=== PATIENT | male | born 1945 | race American Indian/Alaskan Native ===

== ENCOUNTER 2018-12-05 12:38 | Inpatient (IN) | payer MEDICARE ==
--- NOTE | 2018-12-05 12:53 | Emergency Department Report ---
Blank Doc - Documentation Documentation: This is a 73-year-old male that presents with hematuria. Denies any penile di scharge. Denies any back pain, testicular pain or swelling. This initial assessment/diagnostic orders/clinical plan/treatment(s) is/are subject to change based on patient's health status, clinical progression and re- assessment by fellow clinical providers in the ED. Further treatment and workup at subsequent clinical providers discretion. Patient/guardians urged not to elope from the ED as their condition may be serious if not clinically assessed and managed. Initial orders include: 1- Patient sent to [facility] for further evaluation and treatment 2- UA 3- Labs
[2018-12-05] MEDS ORDERED: NACL 0.9% 1000 ML 1,000 ML IV ONE (13:33)
[2018-12-05 13:38] LABS: Basophils # (Auto) 0.1 K/mm3 (0.0-0.1); Eosinophils # (Auto) 0.1 K/mm3 (0.0-0.4); Eosinophils % (Auto) 1.4 % (0.0-4.3); Hematocrit 39.7 % (35.5-45.6); Hemoglobin 12.6 gm/dl (11.8-15.2); Lymphocytes % (Auto) 14.6 % (13.4-35.0); Mean Corpuscular HGB Conc 32 % (32-34); Mean Corpuscular Volume 88 fl (84-94); Monocytes # (Auto) 0.7 K/mm3 (0.0-0.8); Monocytes % (Auto) 10.1 % (0.0-7.3); Platelet Count 247 K/mm3 (140-440); Red Blood Count 4.53 M/mm3 (3.65-5.03); Red Cell Distribution Width 16.4 % (13.2-15.2)
[2018-12-05 13:55] LABS: INR 1.09 (0.87-1.13)
[2018-12-05] MEDS ORDERED: VANCOMYCIN PHARMACY TO DOSE IV SCH (14:00)
[2018-12-05 14:13] LABS: BUN/Creatinine Ratio 12; Blood Urea Nitrogen 22 mg/dL (9-20)
[2018-12-05 14:14] LABS: Alanine Aminotransferase 13 units/L (7-56); Albumin 3.3 g/dL (3.9-5); Hemolysis Index 47
[2018-12-05 14:16] LABS: Bilirubin,Direct < 0.2 mg/dL (0-0.2)
[2018-12-05] MEDS ORDERED: MERREM 1,000 MG in NACL 0.9% 100 ML IV ONE (14:35)
[2018-12-05] MEDS ORDERED: ATIVAN ONE (14:55)
[2018-12-05] MEDS ORDERED: VANCOMYCIN 1,500 MG in NACL 0.9% 500 ML 500 ML IV ONE (15:00)
--- NOTE | 2018-12-05 15:06 | XRay Report ---
Single view chest: Compared to 10/22/16. History: Hypertension. Findings: Cardiomegaly. Trachea is midline. No consolidation, pneumothorax or pleural effusion. Impression: Cardiomegaly. No acute lung changes.
--- NOTE | 2018-12-05 15:12 | Emergency Department Report ---
ED General Adult HPI - General Chief complaint: Urogenital-Male Stated complaint: BLOOD IN URINE Time Seen by Provider: 12/05/18 12:51 Source: family Mode of arrival: Wheelchair Limitations: No Limitations - History of Present Illness Initial comments: 73-year-old male who presents to the emergency department with a heart rate of approximately 180 in SVT. His is not the greatest historian. However she states that he has had hematuria and lower abdominal suprapubic discomfort since yesterday. The patient himself is not complaining of anything actively but he does have a history of dementia. does recall that the patient had SVT and a Chambers in the past. He has previous amputation. Apparently he has presented here in 2017 under very similar circumstances: Discharge diagnosis and management per problem: Sepsis - likely due lower extremity cellulitis due to infected blisters; - cultures obtained (blood and urine cultures neg to date, wound culture growing GNR); - was on broad-spectrum antibiotics then narrowed down to levaquin per culture results SVT - received adenosine and converted back into sinus rhythm; - TSH within normal limits; possibly related to sepsis/electrolyte abnormalities (hyperkalemia, hypernatremia, hyperchloremia); - electrolytes replaced as needed - s/p another episode of SVT on 10/24/16 on the floor which resolved with iv Lopressor, then placed on metoprolol po - Cardiology was following, 2-D echo showed normal ejection fraction Hypertension, benign essential - initially on admission was hypotensive secondary to sepsis and volume depletion; responded to IV fluids and resolved - Placed on metoprolol and amlodipine Acute on chronic renal failure - secondary to vasomotor nephropathy/rhabdomyolysis with metabolic acidosis, uremia, hyperkalemia; - Placed on IV fluids, including bicarbonate; improved, Cr almost at baseline, level was 1.5 before discharge Hyperkalemia - secondary to CKD/potassium supplementation/dehydration - medically treated, now within normal limits; Hypernatremia - secondary to dehydration; resolved with IV fluid Rhabdomyolysis - CPK trended down with IV fluids Acute toxic metabolic encephalopathy - treated underlying conditions, stable now 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 - on admission d-dimer elevated and patient started on heparin drip by ER physician; - venous Doppler lower extremities obtained and negative for DVT bilaterally; - also VQ scan performed and there is no evidence of PE; - heparin drip discontinued and patient was started on Coumadin severe protein calorie Malnutrition - follow dietary recommendation -: Gradual, hour(s) Location: abdomen Radiation: non-radiation Severity scale (0 -10): 6 Quality: aching Consistency: intermittent Improves with: none Worsens with: none Associated Symptoms: denies other symptoms - Related Data Home Medications Medication Instructions Recorded Confirmed Last Taken Aspirin [Aspirin BABY CHEW TAB] 81 mg PO QDAY 05/01/15 05/13/15 05/12/15 Previous Rx's Medication Instructions Recorded Last Taken Type HYDROcodone/APAP 5-325 [[place] 1 each PO Q6HR PRN #10 tablet 05/09/15 05/12/15 Rx 5-325 mg TAB] Metoprolol [Lopressor TAB] 50 mg PO BID #60 tablet 10/28/16 Unknown Rx Warfarin [Coumadin] 7.5 mg PO DAILY@1700 tablet 10/28/16 Unknown Rx amLODIPine [Norvasc] 5 mg PO QDAY #30 tablet 10/28/16 Unknown Rx levoFLOXacin [Levaquin TAB] 500 mg PO Q24HR #7 tablet 10/28/16 Unknown Rx Allergies Allergy/AdvReac Type Severity Reaction Status Date / Time No Known Allergies Allergy Unverified 05/13/15 15:03 ED Review of Systems ROS: Stated complaint: BLOOD IN URINE Other details as noted in HPI Comment: Unobtainable due to pts medical conditions (dementia. The patient is not complaining of pain on the initial encounter.) ED Past Medical Hx - Past Medical History Previous Medical History?: Yes Hx Hypertension: Yes Hx CVA: Yes ("MINI STROKE") Hx Congestive Heart Failure: Yes Hx Deep Vein Thrombosis: Yes (Right leg 05/2015) Hx Psychiatric Treatment: Yes (DEPRESSION) Additional medical history: "KIDNEY PROBLEMS" - Surgical History Past Surgical History?: Yes Additional Surgical History: LEFT HIP REPLACEMENT, Right BKA - Social History Smoking Status: Unknown if ever smoked Substance Use Type: None - Medications Home Medications: Home Medications Medication Instructions Recorded Confirmed Last Taken Type Aspirin [Aspirin BABY CHEW TAB] 81 mg PO QDAY 05/01/15 05/13/15 05/12/15 History HYDROcodone/APAP 5-325 [[place] 1 each PO Q6HR PRN #10 tablet 05/09/15 05/13/15 05/12/15 Rx 5-325 mg TAB] Metoprolol [Lopressor TAB] 50 mg PO BID #60 tablet 10/28/16 Unknown Rx Warfarin [Coumadin] 7.5 mg PO DAILY@1700 tablet 10/28/16 Unknown Rx amLODIPine [Norvasc] 5 mg PO QDAY #30 tablet 10/28/16 Unknown Rx levoFLOXacin [Levaquin TAB] 500 mg PO Q24HR #7 tablet 10/28/16 Unknown Rx ED Physical Exam - General Limitations: No Limitations General appearance: alert, in no apparent distress - Head Head exam: Present: atraumatic, normocephalic - Eye Eye exam: Present: normal appearance. Absent: scleral icterus - ENT ENT exam: Present: mucous membranes moist - Neck Neck exam: Present: normal inspection. Absent: tenderness, meningismus - Respiratory Respiratory exam: Present: normal lung sounds bilaterally. Absent: respiratory distress - Cardiovascular Cardiovascular Exam: Present: regular rate, tachycardia (SVT at about 180). Absent: systolic murmur, diastolic murmur, rubs, gallop - GI/Abdominal GI/Abdominal exam: Present: soft, normal bowel sounds. Absent: distended, tenderness, guarding, rebound, rigid - Rectal Rectal exam: Present: deferred - Extremities Exam Extremities exam: Present: other (right AKA) - Back Exam Back exam: Present: normal inspection - Neurological Exam Neurological exam: Present: alert, oriented X3 - Psychiatric Psychiatric exam: Present: normal affect, normal mood - Skin Skin exam: Present: warm, dry, intact, normal color. Absent: rash ED Course Vital Signs 12/05/18 12/05/18 12/05/18 12:52 13:14 13:31 Temperature 97.9 F Pulse Rate 176 H 176 H 98 H Respiratory 24 16 16 Rate Blood Pressure 147/81 Blood Pressure 150/84 150/90 [Left] O2 Sat by Pulse 97 100 100 Oximetry 12/05/18 12/05/18 14:22 14:31 Temperature 100.5 F H Pulse Rate 98 H Respiratory 16 Rate Blood Pressure Blood Pressure 139/96 [Left] O2 Sat by Pulse 100 Oximetry - Reevaluation(s) Reevaluation #1: The patient was given 6 mg of adenosine. This was effective in terminating his SVT. He felt topically warm and he was presumed to be septic. This is validated by a quite elevated lactic acid level. He was treated with empiric antibiotics before laboratory results. Patient had IV bolus initiated. However he was unable to urinate. Nursing was unable to place a Chambers catheter. Therefore Dr. Bettencourt urologist was consulted. A CT of the abdomen and pelvis was ordered. The findings were discussed with Dr. Gusman who will be admitting the patient to hospitalist service. 12/05/18 15:25 ED Medical Decision Making - Lab Data Result diagrams: 12/05/18 13:25 12/05/18 13:25 Laboratory Results - last 24 hr 12/05/18 12/05/18 12/05/18 13:25 13:25 13:25 WBC 7.2 RBC 4.53 Hgb 12.6 Hct 39.7 MCV 88 MCH 28 MCHC 32 RDW 16.4 H Plt Count 247 Lymph % (Auto) 14.6 Thayer % (Auto) 10.1 H Eos % (Auto) 1.4 Baso % (Auto) 1.0 Lymph # 1.0 L Thayer # 0.7 Eos # 0.1 Baso # 0.1 Seg Neutrophils % 72.9 H Seg Neutrophils # 5.2 PT INR APTT Sodium 145 Potassium 4.4 Chloride 108.5 H Carbon Dioxide 20 L Anion Gap 21 BUN 22 H Creatinine 1.9 H Estimated GFR 42 BUN/Creatinine Ratio 12 Glucose 95 Lactic Acid Calcium 9.0 Magnesium 1.90 Total Bilirubin 0.50 Direct Bilirubin < 0.2 AST 19 ALT 13 Alkaline Phosphatase 86 Total Creatine Kinase CK-MB (CK-2) CK-MB (CK-2) Rel Index Troponin T NT-Pro-B Natriuret Pep 556.5 Total Protein 7.0 Albumin 3.3 L Albumin/Globulin Ratio 0.9 Lipase 29 12/05/18 12/05/18 12/05/18 13:35 13:43 13:43 WBC RBC Hgb Hct MCV MCH MCHC RDW Plt Count Lymph % (Auto) Thayer % (Auto) Eos % (Auto) Baso % (Auto) Lymph # Thayer # Eos # Baso # Seg Neutrophils % Seg Neutrophils # PT 14.8 INR 1.09 APTT 27.0 Sodium Potassium Chloride Carbon Dioxide Anion Gap BUN Creatinine Estimated GFR BUN/Creatinine Ratio Glucose Lactic Acid 4.10 H* Calcium Magnesium Total Bilirubin Direct Bilirubin AST ALT Alkaline Phosphatase Total Creatine Kinase 137 CK-MB (CK-2) 2.0 CK-MB (CK-2) Rel Index 1.4 Troponin T 0.014 NT-Pro-B Natriuret Pep Total Protein Albumin Albumin/Globulin Ratio Lipase - EKG Data -: EKG Interpreted by Me Rate: tachycardia - EKG Data Interpretation: other (SVT) - Radiology Data Radiology results: report reviewed Critical Care Time: Yes Critical care time in (mins) excluding proc time.: 80 Critical care attestation.: If time is entered above; I have spent that time in minutes in the direct care of this critically ill patient, excluding procedure time. ED Disposition Clinical Impression: SVT (supraventricular tachycardia), Bladder outlet obstruction Sepsis Qualifiers: Sepsis type: sepsis due to unspecified organism Qualified Code(s): A41.9 - Sepsis, unspecified organism Disposition: DC-09 OP ADMIT IP TO THIS HOSP Is pt being admited?: Yes Does the pt Need Aspirin: Yes Condition: Stable Referrals: THIERNO PALACIOS MD [Primary Care Provider] - 3-5 Days Time of Disposition: 15:43
[2018-12-05] MEDS ORDERED: ATIVAN IV ONE (15:15)
--- NOTE | 2018-12-05 15:37 | History and Physical Report ---
History of Present Illness Chief complaint: He has blood in his urine History of present illness: 73 YO Male with HTN, CVA, CHF, DVT on Therapeutic Anticoagulation, Dementia, Depression presents to ED for evaluation. Pt is confused and provides limited history. Pt history provided by his . per , the patient has experienced abdominal discomfort, and blood in his urine over the past 2 days. Pt transported to [facility] by his family. Pt seen and evaluated in ED and found to have ARF suspected secondary to Bladder Outlet obstruction, SIRS, Acidosis, SIRS as well as SVT with heart rate in the 180's. Pt treated with medical cardioversion with Adenosine with normalization of heart rate. Pt admitted to Telemetry. Cardiology consulted in ED. Urology consulted in ED with placement of caldwell catheter in ED. Past History Past Medical History: DVT, heart failure, hypertension, stroke Past Surgical History: total hip replacement, Other (R BKA) Social history: , lives with family. denies: smoking, alcohol abuse, p rescription drug abuse Family history: CAD, hypertension Medications and Allergies Allergies Allergy/AdvReac Type Severity Reaction Status Date / Time No Known Allergies Allergy Unverified 05/13/15 15:03 Home Medications Medication Instructions Recorded Confirmed Last Taken Type Aspirin [Aspirin BABY CHEW TAB] 81 mg PO QDAY 05/01/15 05/13/15 05/12/15 History HYDROcodone/APAP 5-325 [[place] 1 each PO Q6HR PRN #10 tablet 05/09/15 05/13/15 05/12/15 Rx 5-325 mg TAB] Metoprolol [Lopressor TAB] 50 mg PO BID #60 tablet 10/28/16 Unknown Rx Warfarin [Coumadin] 7.5 mg PO DAILY@1700 tablet 10/28/16 Unknown Rx amLODIPine [Norvasc] 5 mg PO QDAY #30 tablet 10/28/16 Unknown Rx levoFLOXacin [Levaquin TAB] 500 mg PO Q24HR #7 tablet 10/28/16 Unknown Rx Active Meds: Active Medications Vancomycin HCl 1,500 mg/ (Sodium Chloride) 530 mls @ 265 mls/hr IV ONCE ONE Stop: 12/05/18 16:59 Review of Systems ROS unobtainable: due to mental status Exam - Constitutional Vitals: Temp Pulse Resp BP Pulse Ox 100.5 F H 98 H 16 139/96 100 12/05/18 14:22 12/05/18 14:31 12/05/18 14:31 12/05/18 14:31 12/05/18 14:31 General appearance: Present: mild distress - EENT Eyes: Present: PERRL ENT: hearing intact, clear oral mucosa - Neck Neck: Present: supple, normal ROM - Respiratory Respiratory effort: normal Respiratory: bilateral: CTA - Cardiovascular Rhythm: other (tachycardia) Heart Sounds: Present: S1 & S2. Absent: rub, click - Extremities Extremities: pulses symmetrical, No edema Peripheral Pulses: within normal limits - Abdominal General gastrointestinal: Present: soft, non-tender, non-distended, normal bowel sounds Male genitourinary: Present: normal - Integumentary Integumentary: Present: clear, warm, dry - Musculoskeletal Musculoskeletal: generalized weakness - Psychiatric Psychiatric: no appropriate mood/affect, no intact judgment & insight, no memory intact - Neurologic Neurologic: CNII-XII intact, moves all extremities, no gait normal Results - Labs CBC & Chem 7: 12/05/18 13:25 12/05/18 13:25 Labs: Abnormal lab results 12/05/18 12/05/18 12/05/18 Range/Units 13:25 13:25 13:35 RDW 16.4 H (13.2-15.2) % [place] % (Auto) 10.1 H (0.0-7.3) % Lymph # 1.0 L (1.2-5.4) K/mm3 Seg Neutrophils % 72.9 H (40.0-70.0) % Chloride 108.5 H (98-107) mmol/L Carbon Dioxide 20 L (22-30) mmol/L BUN 22 H (9-20) mg/dL Creatinine 1.9 H (0.8-1.5) mg/dL Lactic Acid 4.10 H* (0.7-2.0) mmol/L Albumin 3.3 L (3.9-5) g/dL Assessment and Plan - Patient Problems (1) SIRS (systemic inflammatory response syndrome) Current Visit: Yes Status: Acute Plan to address problem: Empiric antibiotic therapy, IVF resuscitation therapy, CBC, CMP, lactic acid level, chest x ray. (2) Acidosis Current Visit: Yes Status: Acute Plan to address problem: IVF resuscitation therapy (3) Bladder outlet obstruction Current Visit: Yes Status: Acute Plan to address problem: Urology consulted in ED, caldwell catheter placed, monitor uop q shift, (4) Supraventricular tachycardia Current Visit: Yes Status: Acute Plan to address problem: Cardioversion with Adenosine, Cardiology consulted in ED, supportive care, continue beta edwin therapy (5) Acute on chronic renal failure Current Visit: No Status: Acute Plan to address problem: Monitor UOP q shift, urine electrolytes, (6) DVT prophylaxis Current Visit: Yes Status: Acute Plan to address problem: SCD to BLE while in bed.
[2018-12-05] MEDS ORDERED: BABY ASPIRIN PO ONE (15:44)
[2018-12-05] MEDS ORDERED: SODIUM CHLORIDE FLUSH SYRINGE 10 ML IV PRN (15:47)
[2018-12-05] MEDS ORDERED: ZOFRAN IV PRN (15:47)
[2018-12-05] MEDS ORDERED: TYLENOL PO PRN (15:47)
[2018-12-05] MEDS ORDERED: PROVENTIL IH PRN (15:47)
--- NOTE | 2018-12-05 16:14 | Consultation ---
History of Present Illness - Reason for Consult Consult date: 12/05/18 - History of Present Illness CC gross hematuria 73-year-old male who presents to the emergency department with a heart rate of approximately 180 in SVT. His is not the greatest historian. However she states that he has had hematuria and lower abdominal suprapubic discomfort since yesterday. The patient himself is not complaining of anything actively but he does have a history of dementia. does recall that the patient had SVT and a Caldwell in the past. He has previous amputation. Apparently he has presented here in 2017 under very similar circumstances abd mildly distended 16F caldwell place - irrigated clot to pink tinged A/P gross hematuria caldwell - irrigated q 4 hrs & prn with 30-60 cc saline CTAP Medications and Allergies Allergies Allergy/AdvReac Type Severity Reaction Status Date / Time No Known Allergies Allergy Unverified 05/13/15 15:03 Home Medications Medication Instructions Recorded Confirmed Last Taken Type Aspirin [Aspirin BABY CHEW TAB] 81 mg PO QDAY 05/01/15 05/13/15 05/12/15 History HYDROcodone/APAP 5-325 [[place] 1 each PO Q6HR PRN #10 tablet 05/09/15 05/13/15 05/12/15 Rx 5-325 mg TAB] Metoprolol [Lopressor TAB] 50 mg PO BID #60 tablet 10/28/16 Unknown Rx Warfarin [Coumadin] 7.5 mg PO DAILY@1700 tablet 10/28/16 Unknown Rx amLODIPine [Norvasc] 5 mg PO QDAY #30 tablet 10/28/16 Unknown Rx levoFLOXacin [Levaquin TAB] 500 mg PO Q24HR #7 tablet 10/28/16 Unknown Rx Active Meds: Active Medications Acetaminophen (Tylenol) 650 mg PO Q4H PRN PRN Reason: Pain MILD(1-3)/Fever >100.5/LEMON Acetaminophen/Hydrocodone Bitart ([place] 5/325) 1 each PO Q6HR PRN PRN Reason: Pain Albuterol (Proventil) 2.5 mg IH Q4HRT PRN PRN Reason: Shortness Of Breath Amlodipine Besylate (Norvasc) 5 mg PO QDAY BERONICA Aspirin (Baby Aspirin) 81 mg PO QDAY BERONICA Vancomycin HCl 1,500 mg/ (Sodium Chloride) 530 mls @ 265 mls/hr IV ONCE ONE Stop: 12/05/18 16:59 Last Admin: 12/05/18 15:54 Dose: 265 mls/hr Documented by: Metoprolol Tartrate (Lopressor) 50 mg PO BID [facility] Morphine Sulfate (Morphine) 2 mg IV Q4H PRN PRN Reason: Pain, Moderate (4-6) Ondansetron HCl (Zofran) 4 mg IV Q8H PRN PRN Reason: Nausea And Vomiting Sodium Chloride (Sodium Chloride Flush Syringe 10 Ml) 10 ml IV BID [facility] Sodium Chloride (Sodium Chloride Flush Syringe 10 Ml) 10 ml IV PRN PRN PRN Reason: LINE FLUSH Warfarin Sodium (Coumadin) 7.5 mg PO DAILY@1700 BERONICA; Protocol Exam - Constitutional Vitals: Temp Pulse Resp BP Pulse Ox 100.5 F H 98 H 16 139/96 100 12/05/18 14:22 12/05/18 14:31 12/05/18 14:31 12/05/18 14:31 12/05/18 14:31 Results - Labs CBC & Chem 7: 12/05/18 13:25 12/05/18 13:25 Labs: Abnormal lab results 12/05/18 12/05/18 12/05/18 Range/Units 13:25 13:25 13:35 RDW 16.4 H (13.2-15.2) % [place] % (Auto) 10.1 H (0.0-7.3) % Lymph # 1.0 L (1.2-5.4) K/mm3 Seg Neutrophils % 72.9 H (40.0-70.0) % Chloride 108.5 H (98-107) mmol/L Carbon Dioxide 20 L (22-30) mmol/L BUN 22 H (9-20) mg/dL Creatinine 1.9 H (0.8-1.5) mg/dL Lactic Acid 4.10 H* (0.7-2.0) mmol/L Albumin 3.3 L (3.9-5) g/dL
[2018-12-05] MEDS ORDERED: COUMADIN PO SCH (17:00)
--- NOTE | 2018-12-05 17:06 | Cat Scan Report ---
PROCEDURE: CT ABDOMEN PELVIS WO CON TECHNIQUE: CT examination of the abdomen without IV contrast CT examination of the pelvis without IV contrast HISTORY: abd pain and bladder outlet obstruction, sepsis COMPARISONS: None available FINDINGS: Patient arm in the diagnostic [id number] degrades image quality and limits the examination. The visualized lung bases are clear. Degenerative change in the regional skeleton. Degenerative hyper trophic change in the right hip with joint space collapse. Left hip arthroplasty. Metal artifact limi ts the pelvic examination. No evidence for acute fracture. Normal noncontrast appearance of the liver, gallbladder, adrenals, pancreas, and spleen. Slight fusiform ectasia of the distal abdominal aorta with 2.9 cm diameter at the level of the bifurc ation. Normal caliber IVC. 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 Small fusiform aneurysm proximal right common iliac artery with 2.1 cm diameter. There are 3 nonobstructing right renal calculi ranging in size from 2 mm to 10 mm. Slight right hydro nephrosis. Slight diffuse distention of the right ureter without calculus. 5 mm nonobstructing left renal calculus. Slight left hydronephrosis and slight ureterectasis without ureteral calculus. Urinary bladder contains 2 calculi with one measuring 3.6 cm and the other measuring 2.0 cm. These ar e positioned in the posterior urinary bladder adjacent to a Chambers catheter balloon. Nonspecific soft tissue density is noted in the urinary bladder lumen measuring 5 cm. This may be tim rile debris, infected debris, or hematoma. Differential includes neoplasm. Small fat-containing umbilical hernia. Small fat-containing right inguinal hernia. No retroperitoneal adenopathy. No evidence of mesenteric mass. Small hiatal hernia. Otherwise normal appearing stomach and duodenum. No small bowel distention in th e abdomen and pelvis. No pelvic free fluid. No definite prostate or seminal vesicle abnormality. Normal-appearing rectum. Slight diverticulosis ascending and descending colon. Moderate diverticulosis sigmoid colon. No CT ev idence of diverticulitis. No gross ascites, free air, or colonic distention. Normal-appearing cecum, terminal ileum, and append ix. IMPRESSION: Multiple bilateral nonobstructing renal calculi. Bilateral hydronephrosis without evidence of ureteral calculus but there are large urinary bladder ca lculi Nonspecific soft tissue density in the urinary bladder may be a 5 cm collection of sterile debris, in fected debris, or hematoma. Differential includes neoplasm. 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 Small hiatal hernia Multifocal diverticulosis This document is electronically signed by Lam Doll MD., December 05 2018 05:04:03 PM ET
--- NOTE | 2018-12-05 17:09 | Event Note ---
Date: 12/05/18 caldwell in good position CTAP+ stone, hydro needs cysto under anesthesia if medical stable (can do tomorrow)
[2018-12-05] MEDS: NORCO 5/325 PO PRN (21:43)
[2018-12-05] MEDS: LOPRESSOR PO SCH (21:43)
[2018-12-05] MEDS: SODIUM CHLORIDE FLUSH SYRINGE 10 ML IV SCH (22:00)
[2018-12-06] MEDS: MORPHINE IV PRN ×2 (04:37→22:02)
[2018-12-06] MEDS: ZOSYN/NS 3.375GM/50ML 3.375 GM/50 ML BAG IV SCH ×3 (06:29→22:01)
[2018-12-06] MEDS: VANCOMYCIN 1,500 MG in NACL 0.9% 500 ML 500 ML IV SCH (09:27)
--- NOTE | 2018-12-06 10:27 | Consultation ---
History of Present Illness Consult date: 12/06/18 Requesting physician: JUDY HEART Consult reason: congestive heart failure, other (SVT) History of present illness: The pt is a 73 YO male with a past medical history of paroxysmal SVT, CVA, HTN, PVD s/p RLE amputation, renal insufficiency, DVT, previously anticoagulated with coumadin, dementia. He has been seen by our practice on prior hospitalization. He is a poor historian due to dementia and HPI is obtained per his son at bedside. Over the weekend, pt began c/o abdominal bloating. His was changing his diaper yesterday when she noted blood in his urine and thus decided to seek medical attention. Pt seen and evaluated in ED and found to have ARF suspected secondary to Bladder Outlet obstruction, lactic Acidosis, as well as SVT with heart rate in the 180's. Pt was treated IV Adenosine and converted back to NSR. Urology consulted in ED with placement of caldwell catheter in ED. This AM, pt had another bout of SVT HR 200s which spontaneously converted to sinus tach within a matter of minutes. Pt is scheduled for cystoscopy today. Echo done 10/2016 showed EF 55-60%, mild LVH, impaired relaxation, trace MR and trace TR. Past History Past Medical History: DVT, heart failure, hypertension, stroke Past Surgical History: total hip replacement, Other (R BKA) Social history: , lives with family. denies: smoking, alcohol abuse, prescription drug abuse Family history: CAD, hypertension Medications and Allergies Allergies Allergy/AdvReac Type Severity Reaction Status Date / Time No Known Allergies Allergy Unverified 05/13/15 15:03 Home Medications Medication Instructions Recorded Confirmed Last Taken Type Aspirin [Aspirin BABY CHEW TAB] 81 mg PO DAILY 05/01/15 12/05/18 05/12/15 History Carvedilol [Coreg] 25 mg PO DAILY 12/05/18 12/05/18 Unknown History Lisinopril [Zestril] 40 mg PO DAILY 12/05/18 12/05/18 Unknown History Sertraline [Zoloft] 50 mg PO DAILY 12/05/18 12/05/18 Unknown History Active Meds: Active Medications Acetaminophen (Tylenol) 650 mg PO Q4H PRN PRN Reason: Pain MILD(1-3)/Fever >100.5/LEMON Acetaminophen/Hydrocodone Bitart ([place] 5/325) 1 each PO Q6HR PRN PRN Reason: Pain Last Admin: 12/05/18 21:43 Dose: 1 each Documented by: Albuterol (Proventil) 2.5 mg IH Q4HRT PRN PRN Reason: Shortness Of Breath Amlodipine Besylate (Norvasc) 5 mg PO QDAY BERONICA Aspirin (Baby Aspirin) 81 mg PO QDAY [facility] Piperacillin Sod/Tazobactam Sod (Zosyn/Ns 3.375gm/50ml) 3.375 gm in 50 mls @ 100 mls/hr IV Q8HR [facility]; Protocol Last Infusion: 12/06/18 09:32 Dose: Infused Documented by: Vancomycin HCl 1,500 mg/ (Sodium Chloride) 530 mls @ 333.333 mls/hr IV Q24HR [facility] Last Admin: 12/06/18 09:27 Dose: 333.333 mls/hr Documented by: Metoprolol Tartrate (Lopressor) 50 mg PO BID [facility] Last Admin: 12/05/18 21:43 Dose: 50 mg Documented by: Morphine Sulfate (Morphine) 2 mg IV Q4H PRN PRN Reason: Pain, Moderate (4-6) Last Admin: 12/06/18 04:37 Dose: 2 mg Documented by: Ondansetron HCl (Zofran) 4 mg IV Q8H PRN PRN Reason: Nausea And Vomiting Sodium Chloride (Sodium Chloride Flush Syringe 10 Ml) 10 ml IV BID [facility] Last Admin: 12/05/18 22:00 Dose: 10 ml Documented by: Sodium Chloride (Sodium Chloride Flush Syringe 10 Ml) 10 ml IV PRN PRN PRN Reason: LINE FLUSH Warfarin Sodium (Coumadin) 7.5 mg PO DAILY@1700 [facility]; Protocol Last Admin: 12/05/18 16:41 Dose: Not Given Documented by: Review of Systems All systems: negative Physical Examination Vital Signs Temp Pulse Resp BP Pulse Ox 97.9 F 176 H 24 147/81 97 12/05/18 12:52 12/05/18 12:52 12/05/18 12:52 12/05/18 12:52 12/05/18 12:52 General appearance: no acute distress HEENT: Positive: PERRL, Normocephaly, Mucus Membranes Moist Neck: Positive: neck supple, trachea midline Cardiac: Positive: Reg Rate and Rhythm, S1/S2 Lungs: Positive: Decreased Breath Sounds Results 12/05/18 13:25 12/05/18 13:25 Cardiac Enzymes 12/05/18 12/05/18 Range/Units 13:25 13:43 AST 19 (5-40) units/L CK-MB (CK-2) 2.0 (0.0-4.0) ng/mL Coagulation 12/05/18 Range/Units 13:43 PT 14.8 (12.2-14.9) Sec. INR 1.09 (0.87-1.13) APTT 27.0 (24.2-36.6) Sec. CBC 12/05/18 Range/Units 13:25 WBC 7.2 (4.5-11.0) K/mm3 RBC 4.53 (3.65-5.03) M/mm3 Hgb 12.6 (11.8-15.2) gm/dl Hct 39.7 (35.5-45.6) % Plt Count 247 (140-440) K/mm3 Lymph # 1.0 L (1.2-5.4) K/mm3 [place] # 0.7 (0.0-0.8) K/mm3 Eos # 0.1 (0.0-0.4) K/mm3 Baso # 0.1 (0.0-0.1) K/mm3 Comprehensive Metabolic Panel 12/05/18 Range/Units 13:25 Sodium 145 (137-145) mmol/L Potassium 4.4 (3.6-5.0) mmol/L Chloride 108.5 H (98-107) mmol/L Carbon Dioxide 20 L (22-30) mmol/L BUN 22 H (9-20) mg/dL Creatinine 1.9 H (0.8-1.5) mg/dL Glucose 95 (75-100) mg/dL Calcium 9.0 (8.4-10.2) mg/dL Direct Bilirubin < 0.2 (0-0.2) mg/dL AST 19 (5-40) units/L ALT 13 (7-56) units/L Alkaline Phosphatase 86 (35-129) units/L Total Protein 7.0 (6.3-8.2) g/dL Albumin 3.3 L (3.9-5) g/dL - Imaging and Cardiology Echo: report reviewed (10/2016 showed EF 55-60%, mild LVH, impaired relaxation, trace MR and trace TR.) EKG: report reviewed, image reviewed EKG interpretations - Telemetry EKG Rhythm: Sinus Rhythm - EKG Sinus rhythms and dysrhythmias: sinus rhythm Assessment and Plan Pt with parox SVT. He had another bout of SVT this AM which spontaneously resolved. Optimize HR. Pt currently scheduled for cystoscopy, recommend holding off on procedure at this time until medically stabilized. Pt has h/o DVT, previously anticoagulated with coumadin. INR 1.09 on admission and it is unclear whether pt has been taking coumadin at home. He is presently experiencing hematura, primary has resumed coumadin. Will hold systemic AC at this time until urology w/u complete. The patient has been seen in conjunction with Dr. Horton who agrees with the assessment and plan of care. - Patient Problems (1) Paroxysmal SVT (supraventricular tachycardia) Current Visit: Yes Status: Chronic (2) Hematuria Current Visit: Yes Status: Acute (3) Bladder outlet obstruction Current Visit: Yes Status: Acute (4) Acute on chronic renal failure Current Visit: Yes Status: Acute (5) History of CVA (cerebrovascular accident) Current Visit: Yes Status: Chronic (6) HTN (hypertension) Current Visit: Yes Status: Chronic (7) History of DVT (deep vein thrombosis) Current Visit: Yes Status: Chronic (8) Anticoagulated on Coumadin Current Visit: Yes Status: Chronic (9) Status post above knee amputation of right lower extremity Current Visit: Yes Status: Chronic (10) Lactic acidosis Current Visit: Yes Status: Acute (11) Dementia Current Visit: Yes Status: Chronic
[2018-12-06] MEDS: NORCO 5/325 PO PRN ×2 (12:26→18:11)
[2018-12-06] MEDS: BABY ASPIRIN PO SCH (12:27)
[2018-12-06] MEDS: NORVASC PO SCH (12:27)
[2018-12-06] MEDS: SODIUM CHLORIDE FLUSH SYRINGE 10 ML IV SCH ×2 (12:30→22:02)
--- NOTE | 2018-12-06 12:46 | Progress Note ---
Subjective Date of service: 12/06/18 Interval history: CC gross hematuria 73-year-old male who presents to the emergency department with a heart rate of approximately 180 in SVT. His is not the greatest historian. However she states that he has had hematuria and lower abdominal suprapubic discomfort since yesterday. The patient himself is not complaining of anything actively but he does have a history of dementia. does recall that the patient had SVT and a Caldwell in the past. He has previous amputation. Apparently he has presented here in 2017 under very similar circumstances abd mildly distended 16F caldwell place -caldwell bloody now (intermittently) it appears pt is pulling on caldwell CTAP+ stones, mild hydro A/P gross hematuria history of dementia caldwell - irrigated q 4 hrs & prn with 30-60 cc saline recommend mittens on hand so won't pull caldwell Objective - Constitutional Vitals: Vital Signs - 12hr 12/06/18 12/06/18 12/06/18 02:37 06:43 08:24 Temperature 98.6 F Pulse Rate 87 109 H Respiratory 20 Rate Blood Pressure 172/133 O2 Sat by Pulse 98 95 Oximetry 12/06/18 08:29 Temperature 97.8 F Pulse Rate Respiratory 20 Rate Blood Pressure 133/91 O2 Sat by Pulse Oximetry - Labs CBC & Chem 7: 12/05/18 13:25 12/05/18 13:25 Labs: Abnormal lab results 12/05/18 12/05/18 12/05/18 Range/Units 13:25 13:25 13:35 RDW 16.4 H (13.2-15.2) % [place] % (Auto) 10.1 H (0.0-7.3) % Lymph # 1.0 L (1.2-5.4) K/mm3 Seg Neutrophils % 72.9 H (40.0-70.0) % Chloride 108.5 H (98-107) mmol/L Carbon Dioxide 20 L (22-30) mmol/L BUN 22 H (9-20) mg/dL Creatinine 1.9 H (0.8-1.5) mg/dL Lactic Acid 4.10 H* (0.7-2.0) mmol/L Albumin 3.3 L (3.9-5) g/dL 0312/05/18 12/05/18 Range/Units 15:56 17:01 22:06 RDW (13.2-15.2) % [place] % (Auto) (0.0-7.3) % Lymph # (1.2-5.4) K/mm3 Seg Neutrophils % (40.0-70.0) % Chloride (98-107) mmol/L Carbon Dioxide (22-30) mmol/L BUN (9-20) mg/dL Creatinine (0.8-1.5) mg/dL Lactic Acid 2.60 H* 2.60 H* 5.40 H* (0.7-2.0) mmol/L Albumin (3.9-5) g/dL 12/06/18 12/06/18 Range/Units 05:45 08:49 RDW (13.2-15.2) % [place] % (Auto) (0.0-7.3) % Lymph # (1.2-5.4) K/mm3 Seg Neutrophils % (40.0-70.0) % Chloride (98-107) mmol/L Carbon Dioxide (22-30) mmol/L BUN (9-20) mg/dL Creatinine (0.8-1.5) mg/dL Lactic Acid 3.90 H* 2.20 H* (0.7-2.0) mmol/L Albumin (3.9-5) g/dL Medications & Allergies - Medications Allergies/Adverse Reactions: Allergies No Known Allergies Allergy (Unverified 05/13/15 15:03) Home Medications: Home Medications Medication Instructions Recorded Confirmed Last Taken Type Aspirin [Aspirin BABY CHEW TAB] 81 mg PO DAILY 05/01/15 12/05/18 05/12/15 History Carvedilol [Coreg] 25 mg PO DAILY 12/05/18 12/05/18 Unknown History Lisinopril [Zestril] 40 mg PO DAILY 12/05/18 12/05/18 Unknown History Sertraline [Zoloft] 50 mg PO DAILY 12/05/18 12/05/18 Unknown History Active Medications: Generic Name Dose Route Start Last Admin Trade Name Freq PRN Reason Stop Dose Admin Acetaminophen 650 mg 12/05/18 15:47 Tylenol PO Q4H PRN Pain MILD(1-3)/Fever >100.5/LEMON Acetaminophen/Hydrocodone Bitart 1 each 12/05/18 15:44 12/06/18 12:26 [place] 5/325 PO 1 each Q6HR PRN Administration Pain Albuterol 2.5 mg 12/05/18 15:47 Proventil IH Q4HRT PRN Shortness Of Breath Amlodipine Besylate 5 mg 12/06/18 10:00 12/06/18 12:27 Norvasc PO 5 mg QDAY BERONICA Administration Aspirin 81 mg 12/06/18 10:00 12/06/18 12:27 Baby Aspirin PO 81 mg QDAY BERONICA Administration Piperacillin Sod/Tazobactam Sod 3.375 gm in 50 mls @ 100 mls/hr 12/06/18 06:00 12/06/18 09:32 Zosyn/Ns 3.375gm/50ml IV Infused Q8HR BERONICA Infusion Protocol Vancomycin HCl 1,500 mg/ 530 mls @ 333.333 mls/hr 12/06/18 10:00 12/06/18 12:30 Sodium Chloride IV Infused Q24HR BERONICA Infusion Metoprolol Tartrate 50 mg 12/06/18 14:00 Lopressor PO TID BERONICA Morphine Sulfate 2 mg 12/05/18 15:47 12/06/18 04:37 Morphine IV 2 mg Q4H PRN Administration Pain, Moderate (4-6) Ondansetron HCl 4 mg 12/05/18 15:47 Zofran IV Q8H PRN Nausea And Vomiting Sodium Chloride 10 ml 12/05/18 22:00 12/06/18 12:30 Sodium Chloride Flush Syringe 10 Ml IV 10 ml BID BERONICA Administration Sodium Chloride 10 ml 12/05/18 15:47 Sodium Chloride Flush Syringe 10 Ml IV PRN PRN LINE FLUSH
[2018-12-06] MEDS ORDERED: VANCOMYCIN/NS 1 GM/250 ML 1 GM/250 ML BAG IV SCH (16:00)
--- NOTE | 2018-12-06 17:44 | Progress Note ---
Assessment and Plan Assessment and Plan - Patient Problems (1) SIRS (systemic inflammatory response syndrome) Current Visit: Yes Status: Acute Plan to address problem: Empiric antibiotic therapy, IVF resuscitation therapy, CBC, CMP, lactic acid level, chest x ray. (2) Acidosis Current Visit: Yes Status: Acute Plan to address problem: IVF resuscitation therapy (3) Bladder outlet obstruction Current Visit: Yes Status: Acute Plan to address problem: Urology consulted in ED, caldwell catheter placed, monitor uop q shift, (4) Supraventricular tachycardia Current Visit: Yes Status: Acute Plan to address problem: Cardioversion with Adenosine, Cardiology consulted in ED, supportive care, continue beta edwin therapy (5) Acute on chronic renal failure Current Visit: No Status: Acute Plan to address problem: Monitor UOP q shift, urine electrolytes, (6) DVT prophylaxis Current Visit: Yes Status: Acute Plan to address problem: SCD to BLE while in bed. Subjective Date of service: 12/06/18 Principal diagnosis: SIRS and Urinary retention Interval history: Doing better Objective - Constitutional Vitals: Vital Signs - 12hr 12/06/18 12/06/18 12/06/18 06:43 08:24 08:29 Temperature 98.6 F 97.8 F Pulse Rate 109 H Respiratory 20 20 Rate Blood Pressure 172/133 133/91 O2 Sat by Pulse 98 95 Oximetry General appearance: Present: no acute distress, well-nourished - EENT Eyes: PERRL, EOM intact ENT: hearing intact, clear oral mucosa Ears: bilateral: normal - Neck Neck: supple, normal ROM - Respiratory Respiratory effort: normal Respiratory: bilateral: CTA - Breasts Breasts: normal - Cardiovascular Rhythm: regular Heart Sounds: Present: S1 & S2. Absent: gallop, rub Extremities: pulses intact, No edema, normal color, Full ROM - Gastrointestinal General gastrointestinal: Present: soft, non-tender, non-distended, normal bowel sounds - Genitourinary Male genitourinary: normal - Integumentary Integumentary: clear, warm, dry - Musculoskeletal Musculoskeletal: 1, strength equal bilaterally - Neurologic Neurologic: moves all extremities - Psychiatric Psychiatric: memory intact, appropriate mood/affect, intact judgment & insight - Labs CBC & Chem 7: 12/05/18 13:25 12/05/18 13:25 Labs: Abnormal lab results 12/05/18 12/06/18 12/06/18 Range/Units 22:06 05:45 08:49 Lactic Acid 5.40 H* 3.90 H* 2.20 H* (0.7-2.0) mmol/L
[2018-12-06] MEDS: LOPRESSOR PO SCH ×2 (18:12→20:00)
[2018-12-07 05:47] LABS: INR 1.3 (0.87-1.13)
[2018-12-07] MEDS: ZOSYN/NS 3.375GM/50ML 3.375 GM/50 ML BAG IV SCH ×3 (06:28→22:14)
[2018-12-07] MEDS: MORPHINE IV PRN (06:36)
--- NOTE | 2018-12-07 11:05 | Progress Note ---
Assessment and Plan No SVT noted overnight. Cont current cardiac regimen. Pt has h/o DVT, previously anticoagulated with coumadin. INR 1.09 on admission and it is unclear whether pt has been taking coumadin at home. He is presently experiencing hematura, primary has resumed coumadin. Will hold systemic AC at this time until urology w/u complete. The patient has been seen in conjunction with Dr. Horton who agrees with the assessment and plan of care. - Patient Problems (1) Paroxysmal SVT (supraventricular tachycardia) Current Visit: Yes Status: Chronic (2) Hematuria Current Visit: Yes Status: Acute (3) Bladder outlet obstruction Current Visit: Yes Status: Acute (4) Acute on chronic renal failure Current Visit: Yes Status: Acute (5) History of CVA (cerebrovascular accident) Current Visit: Yes Status: Chronic (6) HTN (hypertension) Current Visit: Yes Status: Chronic (7) History of DVT (deep vein thrombosis) Current Visit: Yes Status: Chronic (8) Anticoagulated on Coumadin Current Visit: Yes Status: Chronic (9) Status post above knee amputation of right lower extremity Current Visit: Yes Status: Chronic (10) Lactic acidosis Current Visit: Yes Status: Acute (11) Dementia Current Visit: Yes Status: Chronic Subjective Date of service: 12/07/18 Principal diagnosis: SIRS and Urinary retention Interval history: pt resting in bed, no current cardiac complaints. in SR on telemetry, no SVT noted overnight. Objective Last Vital Signs Temp 98.3 F 12/07/18 08:57 Pulse 66 12/07/18 08:56 Resp 18 12/07/18 08:56 BP 116/79 12/07/18 08:56 Pulse Ox 100 12/07/18 08:56 - Physical Examination General: No Apparent Distress HEENT: Positive: PERRL, Normocephaly, Mucus Membranes Moist Neck: Positive: neck supple, trachea midline Cardiac: Positive: Reg Rate and Rhythm, S1/S2 Lungs: Positive: Decreased Breath Sounds - Labs and Meds Coagulation 12/07/18 Range/Units 05:10 PT 17.0 H (12.2-14.9) Sec. INR 1.30 H (0.87-1.13) - Imaging and Cardiology EKG: report reviewed, image reviewed Echo: report reviewed (10/2016 showed EF 55-60%, mild LVH, impaired relaxation, trace MR and trace TR.) - EKG Sinus rhythms and dysrhythmias: sinus rhythm
[2018-12-07] MEDS: VANCOMYCIN 1,500 MG in NACL 0.9% 500 ML 500 ML IV SCH (11:31)
[2018-12-07] MEDS: NORVASC PO SCH (11:34)
[2018-12-07] MEDS: BABY ASPIRIN PO SCH (11:34)
[2018-12-07] MEDS: LOPRESSOR PO SCH ×3 (11:34→22:15)
[2018-12-07] MEDS: SODIUM CHLORIDE FLUSH SYRINGE 10 ML IV SCH ×2 (11:37→22:14)
[2018-12-07 17:07] LABS: Hematocrit 28.7 % (35.5-45.6); Mean Corpuscular HGB Conc 32 % (32-34); Mean Corpuscular Volume 87 fl (84-94); Platelet Count 181 K/mm3 (140-440); Red Cell Distribution Width 16.8 % (13.2-15.2)
[2018-12-07 17:18] LABS: Hemoglobin 9.2 gm/dl (11.8-15.2)
[2018-12-07 17:26] LABS: Calcium 8.2 mg/dL (8.4-10.2)
[2018-12-08] MEDS: LOPRESSOR PO SCH ×4 (00:46→20:11)
[2018-12-08] MEDS: ZOSYN/NS 3.375GM/50ML 3.375 GM/50 ML BAG IV SCH ×3 (05:33→22:15)
[2018-12-08 06:43] LABS: INR 1.23 (0.87-1.13)
[2018-12-08] MEDS: NORVASC PO SCH (10:01)
[2018-12-08] MEDS: BABY ASPIRIN PO SCH (10:01)
[2018-12-08] MEDS: SODIUM CHLORIDE FLUSH SYRINGE 10 ML IV SCH ×2 (10:02→22:15)
[2018-12-08] MEDS: VANCOMYCIN 1,500 MG in NACL 0.9% 500 ML 500 ML IV SCH (10:02)
--- NOTE | 2018-12-08 14:29 | Progress Note ---
Assessment and Plan Stable cardiac status. - Patient Problems (1) PSVT (paroxysmal supraventricular tachycardia) Current Visit: Yes Status: Acute (2) Acute kidney injury superimposed on CKD Current Visit: Yes Status: Acute (3) Bladder outlet obstruction Current Visit: Yes Status: Acute (4) Hematuria Current Visit: Yes Status: Acute (5) HTN (hypertension) Current Visit: Yes Status: Chronic Qualifiers: Hypertension type: essential hypertension Qualified Code(s): I10 - Essential (primary) hypertension (6) History of CVA (cerebrovascular accident) Current Visit: Yes Status: Chronic (7) History of DVT (deep vein thrombosis) Current Visit: Yes Status: Chronic Subjective Date of service: 12/08/18 Principal diagnosis: PSVT, Hematuria, Bladder outlet obst, Acute on CKD, HTN Interval history: No complaint. In Sinus bradycardia. Objective Vital Signs Temp Pulse Pulse Resp Resp BP BP 12/08/18 14:09 71 135/75 12/08/18 12:13 98.0 F 57 L 20 135/75 12/08/18 10:01 60 145/82 12/08/18 08:40 95 H 145/82 12/08/18 08:16 97.9 F 57 L 18 145/82 12/08/18 05:05 97.6 F 58 L 18 129/84 12/07/18 23:56 98.1 F 71 22 109/60 12/07/18 22:15 81 135/78 12/07/18 22:00 70 20 20 12/07/18 21:59 12/07/18 21:57 97.9 F 82 20 135/78 12/07/18 20:46 73 12/07/18 16:04 98.0 F 65 18 97/59 12/07/18 16:02 64 18 89/64 Pulse Ox 12/08/18 14:09 12/08/18 12:13 93 12/08/18 10:01 12/08/18 08:40 12/08/18 08:16 99 12/08/18 05:05 98 12/07/18 23:56 96 12/07/18 22:15 12/07/18 22:00 96 12/07/18 21:59 95 12/07/18 21:57 96 12/07/18 20:46 12/07/18 16:04 100 12/07/18 16:02 99 - Physical Examination General: No Apparent Distress HEENT: Positive: EOMI, Normocephaly, Mucus Membranes Moist Neck: Positive: neck supple, trachea midline Cardiac: Positive: Reg Rate and Rhythm Lungs: Positive: clear to auscultation Neuro: Positive: Grossly Intact Abdomen: Positive: Soft, Active Bowel Sounds. Negative: Tender Skin: Positive: Clear. Negative: Rash Musculoskeletal: other (s/p R AKA) Extremities: Absent: edema - Labs and Meds Coagulation 12/08/18 Range/Units 05:49 PT 16.3 H (12.2-14.9) Sec. INR 1.23 H (0.87-1.13) CBC 12/07/18 Range/Units 16:29 WBC 11.8 H (4.5-11.0) K/mm3 RBC 3.30 L (3.65-5.03) M/mm3 Hgb 9.2 L D (11.8-15.2) gm/dl Hct 28.7 L D (35.5-45.6) % Plt Count 181 (140-440) K/mm3 Comprehensive Metabolic Panel 12/07/18 Range/Units 16:29 Sodium 148 H (137-145) mmol/L Potassium 4.1 (3.6-5.0) mmol/L Chloride 113.0 H (98-107) mmol/L Carbon Dioxide 22 (22-30) mmol/L BUN 51 H (9-20) mg/dL Creatinine 3.9 H D (0.8-1.5) mg/dL Glucose 134 H (75-100) mg/dL Calcium 8.2 L (8.4-10.2) mg/dL - Imaging and Cardiology Echo: report reviewed (10/2016 showed EF 55-60%, mild LVH, impaired relaxation, trace MR and trace TR.) - Telemetry EKG Rhythm: Sinus Bradycardia
--- NOTE | 2018-12-08 17:28 | Progress Note ---
Assessment and Plan Assessment and Plan - Patient Problems (1) SIRS (systemic inflammatory response syndrome) Current Visit: Yes Status: Acute Plan to address problem: Empiric antibiotic therapy, IVF resuscitation therapy, CBC, CMP, lactic acid level, chest x ray. (2) Acidosis Current Visit: Yes Status: Acute Plan to address problem: IVF resuscitation therapy (3) Bladder outlet obstruction Current Visit: Yes Status: Acute Plan to address problem: Urology consulted in ED, caldwell catheter placed, monitor uop q shift, (4) Supraventricular tachycardia Current Visit: Yes Status: Acute Plan to address problem: Cardioversion with Adenosine, Cardiology consulted in ED, supportive care, continue beta edwin therapy (5) Acute on chronic renal failure Current Visit: No Status: Acute Plan to address problem: Monitor UOP q shift, urine electrolytes, (6) DVT prophylaxis Current Visit: Yes Status: Acute Plan to address problem: SCD to BLE while in bed. Subjective Date of service: 12/08/18 Principal diagnosis: PSVT, Hematuria, Bladder outlet obst, Acute on CKD, HTN Interval history: Doing better Objective - Constitutional Vitals: Vital Signs - 12hr 12/08/18 12/08/18 12/08/18 08:16 08:40 10:01 Temperature 97.9 F Pulse Rate 57 L 95 H 60 Respiratory 18 Rate Blood Pressure 145/82 145/82 145/82 O2 Sat by Pulse 99 Oximetry 12/08/18 12/08/18 12:13 14:09 Temperature 98.0 F Pulse Rate 57 L 71 Respiratory 20 Rate Blood Pressure 135/75 135/75 O2 Sat by Pulse 93 Oximetry General appearance: Present: no acute distress, well-nourished - EENT Eyes: PERRL, EOM intact ENT: hearing intact, clear oral mucosa Ears: bilateral: normal - Neck Neck: supple, normal ROM - Respiratory Respiratory effort: normal Respiratory: bilateral: CTA - Breasts Breasts: normal - Cardiovascular Rhythm: regular Heart Sounds: Present: S1 & S2. Absent: gallop, rub Extremities: pulses intact, No edema, normal color, Full ROM - Gastrointestinal General gastrointestinal: Present: soft, non-tender, non-distended, normal bowel sounds - Genitourinary Male genitourinary: normal - Integumentary Integumentary: clear, warm, dry - Musculoskeletal Musculoskeletal: 1, strength equal bilaterally - Neurologic Neurologic: moves all extremities - Psychiatric Psychiatric: memory intact, appropriate mood/affect, intact judgment & insight - Labs CBC & Chem 7: 12/09/18 15:41 12/09/18 15:41 Labs: Abnormal lab results 12/07/18 12/08/18 Range/Units 16:29 05:49 PT 16.3 H (12.2-14.9) Sec. INR 1.23 H (0.87-1.13) Creatinine 3.9 H D (0.8-1.5) mg/dL
[2018-12-08] MEDS: NORCO 5/325 PO PRN (23:17)
[2018-12-09] MEDS: ZOSYN/NS 3.375GM/50ML 3.375 GM/50 ML BAG IV SCH ×3 (05:31→22:02)
[2018-12-09] MEDS: NORCO 5/325 PO PRN (05:31)
[2018-12-09 06:13] LABS: INR 1.19 (0.87-1.13)
[2018-12-09] MEDS: LOPRESSOR PO SCH ×3 (08:40→20:00)
[2018-12-09] MEDS: NORVASC PO SCH (09:52)
[2018-12-09] MEDS: BABY ASPIRIN PO SCH (09:53)
[2018-12-09] MEDS: SODIUM CHLORIDE FLUSH SYRINGE 10 ML IV SCH ×2 (09:53→22:02)
--- NOTE | 2018-12-09 13:16 | Progress Note ---
Assessment and Plan IVF with worsening renal function. Stable cardiac status. - Patient Problems (1) PSVT (paroxysmal supraventricular tachycardia) Current Visit: Yes Status: Acute (2) Acute kidney injury superimposed on CKD Current Visit: Yes Status: Acute (3) Bladder outlet obstruction Current Visit: Yes Status: Acute (4) Hematuria Current Visit: Yes Status: Acute (5) HTN (hypertension) Current Visit: Yes Status: Chronic Qualifiers: Hypertension type: essential hypertension Qualified Code(s): I10 - Essential (primary) hypertension (6) History of CVA (cerebrovascular accident) Current Visit: Yes Status: Chronic (7) History of DVT (deep vein thrombosis) Current Visit: Yes Status: Chronic Subjective Date of service: 12/09/18 Principal diagnosis: PSVT, Hematuria, Bladder outlet obst, Acute on CKD, HTN Interval history: No complaint. Objective Vital Signs Temp Pulse Resp Resp BP BP Pulse Ox 12/09/18 10:00 52 L 20 12/09/18 09:52 70 145/87 12/09/18 08:40 82 145/87 12/09/18 08:27 98.5 F 54 L 18 145/87 12/09/18 08:21 98.5 F 54 L 18 145/87 100 12/09/18 06:31 18 12/09/18 05:31 18 12/09/18 04:18 98.1 F 57 L 18 158/78 99 12/09/18 00:17 18 12/09/18 00:07 98.5 F 56 L 18 137/77 98 12/08/18 23:20 20 12/08/18 23:17 18 12/08/18 20:50 20 96 12/08/18 20:11 68 117/72 12/08/18 19:36 99.1 F 68 18 117/72 97 12/08/18 19:12 64 12/08/18 16:11 98.2 F 20 12/08/18 16:10 98.0 F 56 L 20 118/63 99 12/08/18 14:09 71 135/75 - Physical Examination General: No Apparent Distress HEENT: Positive: EOMI, Normocephaly, Mucus Membranes Moist Neck: Positive: neck supple, trachea midline Cardiac: Positive: Reg Rate and Rhythm, S1/S2 Lungs: Positive: clear to auscultation Neuro: Positive: Grossly Intact Abdomen: Positive: Soft, Active Bowel Sounds. Negative: Tender Skin: Positive: Clear. Negative: Rash Musculoskeletal: other (s/p R AKA) Extremities: Absent: edema - Labs and Meds Coagulation 12/09/18 Range/Units 04:58 PT 15.9 H (12.2-14.9) Sec. INR 1.19 H (0.87-1.13) - Imaging and Cardiology EKG: report reviewed, image reviewed Echo: report reviewed (10/2016 showed EF 55-60%, mild LVH, impaired relaxation, trace MR and trace TR.) - Telemetry EKG Rhythm: Sinus Bradycardia - EKG Sinus rhythms and dysrhythmias: sinus rhythm
--- NOTE | 2018-12-09 14:41 | Progress Note ---
Assessment and Plan Assessment and Plan - Patient Problems (1) SIRS (systemic inflammatory response syndrome) Current Visit: Yes Status: Acute Plan to address problem: Empiric antibiotic therapy, IVF resuscitation therapy, CBC, CMP, lactic acid level, chest x ray. (2) Hematuria Current Visit: Yes Status: Acute Plan to address problem: May need Cystoscopy Hematuria improving Dr Bettencourt reconsulted (3) Bladder outlet obstruction Current Visit: Yes Status: Acute Plan to address problem: Urology reconsulted (4) Supraventricular tachycardia Current Visit: Yes Status: Acute Plan to address problem: Cardioversion with Adenosine,, continue beta edwin therapy (5) Acute on chronic renal failure Current Visit: No Status: Acute Plan to address problem: IV Fluids for now (6) DVT prophylaxis Current Visit: Yes Status: Acute Plan to address problem: SCD to BLE while in bed. Subjective Date of service: 12/09/18 Principal diagnosis: PSVT, Hematuria, Bladder outlet obst, Acute on CKD, HTN Interval history: Doing better Objective - Constitutional Vitals: Vital Signs - 12hr 12/09/18 12/09/18 12/09/18 04:18 05:31 06:31 Temperature 98.1 F Pulse Rate 57 L Respiratory 18 18 18 Rate Blood Pressure 158/78 Blood Pressure [Left] O2 Sat by Pulse 99 Oximetry 12/09/18 12/09/18 12/09/18 08:21 08:27 08:40 Temperature 98.5 F 98.5 F Pulse Rate 54 L 54 L 82 Respiratory 18 18 Rate Blood Pressure 145/87 145/87 Blood Pressure 145/87 [Left] O2 Sat by Pulse 100 Oximetry 12/09/18 12/09/18 12/09/18 09:52 10:00 14:35 Temperature Pulse Rate 70 52 L 54 L Respiratory 20 Rate Blood Pressure 145/87 131/70 Blood Pressure [Left] O2 Sat by Pulse Oximetry General appearance: Present: no acute distress, well-nourished - EENT Eyes: PERRL, EOM intact ENT: hearing intact, clear oral mucosa Ears: bilateral: normal - Neck Neck: supple, normal ROM - Respiratory Respiratory effort: normal Respiratory: bilateral: CTA - Breasts Breasts: normal - Cardiovascular Heart rate: 78 Rhythm: regular Heart Sounds: Present: S1 & S2. Absent: gallop, rub Extremities: pulses intact, No edema, normal color, Full ROM - Gastrointestinal General gastrointestinal: Present: soft, non-tender, non-distended, normal bowel sounds - Genitourinary Male genitourinary: normal - Integumentary Integumentary: clear, warm, dry - Musculoskeletal Musculoskeletal: 1, strength equal bilaterally - Neurologic Neurologic: moves all extremities - Psychiatric Psychiatric: memory intact, appropriate mood/affect, intact judgment & insight - Labs CBC & Chem 7: 12/09/18 15:41 12/09/18 15:41 Labs: Abnormal lab results 12/09/18 12/09/18 Range/Units 04:58 10:07 PT 15.9 H (12.2-14.9) Sec. INR 1.19 H (0.87-1.13) Vancomycin Trough 24.1 H (5.0-20.0) ug/mL
[2018-12-09 15:56] LABS: Basophils # (Auto) 0.1 K/mm3 (0.0-0.1); Basophils % (Auto) 0.9 % (0.0-1.8); Eosinophils # (Auto) 0.3 K/mm3 (0.0-0.4); Eosinophils % (Auto) 4.4 % (0.0-4.3); Hemoglobin 8.4 gm/dl (11.8-15.2); Lymphocytes # (Auto) 1.3 K/mm3 (1.2-5.4); Lymphocytes % (Auto) 17.9 % (13.4-35.0); Mean Corpuscular HGB Conc 32 % (32-34); Mean Corpuscular Volume 87 fl (84-94); Monocytes # (Auto) 0.7 K/mm3 (0.0-0.8); Monocytes % (Auto) 9.7 % (0.0-7.3); Platelet Count 188 K/mm3 (140-440); Red Blood Count 2.99 M/mm3 (3.65-5.03); Red Cell Distribution Width 16.6 % (13.2-15.2)
[2018-12-09] MEDS: NACL 0.45% 500 ML IV SCH (16:34)
[2018-12-10 06:10] LABS: INR 1.1 (0.87-1.13)
[2018-12-10] MEDS: ZOSYN/NS 3.375GM/50ML 3.375 GM/50 ML BAG IV SCH (06:30)
[2018-12-10] MEDS: NACL 0.45% 500 ML IV SCH ×2 (06:31→18:04)
--- NOTE | 2018-12-10 08:08 | Progress Note ---
Assessment and Plan (1) SIRS (systemic inflammatory response syndrome) Current Visit: Yes Status: Acute Plan to address problem: Empiric antibiotic therapy, IVF resuscitation therapy, CBC, CMP, lactic acid level, chest x ray. (2) Hematuria Current Visit: Yes Status: Acute Plan to address problem: May need Cystoscopy Hematuria improving Dr Bettencourt reconsulted (3) Bladder outlet obstruction Current Visit: Yes Status: Acute Plan to address problem: Urology reconsulted (4) Supraventricular tachycardia Current Visit: Yes Status: Acute Plan to address problem: Cardioversion with Adenosine, continue beta edwin therapy (5) Acute on chronic renal failure Current Visit: No Status: Acute Plan to address problem: IV Fluids for now (6) DVT prophylaxis Current Visit: Yes Status: Acute Plan to address problem: SCD to BLE while in bed. Lovenox Subjective Date of service: 12/10/18 Principal diagnosis: PSVT, Hematuria, Bladder outlet obst, Acute on CKD, HTN Interval history: Patient is seen and examined. Lying quietly in bed. No obvious distress. Objective - Exam Narrative Exam: Constitutional: Well-nourished well-developed. In no distress Head: Normocephalic atraumatic Eyes: Pupils are equal round and reactive to light Nose: No enlarged turbinates, no septal deviation. Mouth: Moist mucous membranes. Neck: Supple no thyromegaly. No bruit. No JVD Heart: Regular rate and rhythm, S1-S2 normal. No rubs murmurs or gallop Lungs: Clear to auscultation bilaterally. no rales or rhonchi Abdomen: Soft, nontender. Bowel sound are present. Extremities: No edema, no cyanosis, no clubbing. Neuro: Alert oriented Oriented x1. No focal sensory or motor deficit. Skin: No rashes or hyperpigmented spots Musculoskeletal system: No joint pain or swelling Hematological: No petechia or subcutanous hemorrhages. Immunological: No multiple septic spots on the skin Lymphatic: No generalized lymphadenopathy Psychiatry: Demented. Calm. - Constitutional Vitals: Vital Signs - 12hr 12/09/18 12/09/18 12/09/18 21:45 22:00 23:39 Temperature 99.3 F Pulse Rate 80 61 Respiratory 20 18 Rate Blood Pressure 139/78 O2 Sat by Pulse 99 96 98 Oximetry 12/10/18 04:43 Temperature 97.8 F Pulse Rate 68 Respiratory 18 Rate Blood Pressure 154/93 O2 Sat by Pulse 98 Oximetry - Labs CBC & Chem 7: 12/09/18 15:41 12/09/18 15:41 Labs: Abnormal lab results 12/09/18 12/09/18 12/09/18 Range/Units 10:07 15:41 15:41 RBC 2.99 L (3.65-5.03) M/mm3 Hgb 8.4 L (11.8-15.2) gm/dl Hct 26.0 L (35.5-45.6) % RDW 16.6 H (13.2-15.2) % [place] % (Auto) 9.7 H (0.0-7.3) % Eos % (Auto) 4.4 H (0.0-4.3) % Sodium 150 H (137-145) mmol/L Chloride 115.5 H (98-107) mmol/L BUN 33 H (9-20) mg/dL Creatinine 2.4 H (0.8-1.5) mg/dL Glucose 101 H (75-100) mg/dL Calcium 8.0 L (8.4-10.2) mg/dL Vancomycin Trough 24.1 H (5.0-20.0) ug/mL
[2018-12-10] MEDS: LOPRESSOR PO SCH ×3 (09:27→21:47)
[2018-12-10] MEDS: LOVENOX SUB-Q SCH (09:28)
[2018-12-10] MEDS: NORVASC PO SCH (09:28)
[2018-12-10] MEDS: BABY ASPIRIN PO SCH (09:29)
[2018-12-10] MEDS: SODIUM CHLORIDE FLUSH SYRINGE 10 ML IV SCH (09:32)
--- NOTE | 2018-12-10 10:18 | Event Note ---
Date: 12/10/18 hx of Dementia pt pulled out caldwell overnight Spoke with Dr. Nato barreto to proceed with cysto under anesthesia this
--- NOTE | 2018-12-10 11:07 | Progress Note ---
Assessment and Plan Currently stable cardiac status. Cont current cardiac regimen. Pt is currently at moderate cardiovascular risk for contemplated urological procedures. No current cardiac contraindication to proceeding with procedures at this time. Dr Dutton d/w Dr. Bettencourt. The patient has been seen in conjunction with Dr. Dutton who agrees with the assessment and plan of care. - Patient Problems (1) Paroxysmal SVT (supraventricular tachycardia) Current Visit: Yes Status: Chronic (2) Hematuria Current Visit: Yes Status: Acute (3) Bladder outlet obstruction Current Visit: Yes Status: Acute (4) Acute on chronic renal failure Current Visit: Yes Status: Acute (5) History of CVA (cerebrovascular accident) Current Visit: Yes Status: Chronic (6) HTN (hypertension) Current Visit: Yes Status: Chronic Qualifiers: Hypertension type: essential hypertension Qualified Code(s): I10 - Essential (primary) hypertension (7) History of DVT (deep vein thrombosis) Current Visit: Yes Status: Chronic (8) Dementia Current Visit: Yes Status: Chronic Subjective Date of service: 12/10/18 Principal diagnosis: PSVT, Hematuria, Bladder outlet obst, Acute on CKD, HTN Interval history: pt resting in bed, no current cardiac complaints. in SR on telemetry, no SVT noted overnight. Objective Last Vital Signs Temp 98.8 F 12/10/18 08:06 Pulse 57 L 12/10/18 09:28 Resp 18 12/10/18 08:06 BP 134/76 12/10/18 09:28 Pulse Ox 98 12/10/18 04:43 - Physical Examination General: No Apparent Distress HEENT: Positive: EOMI, Normocephaly, Mucus Membranes Moist Neck: Positive: neck supple, trachea midline Cardiac: Positive: Reg Rate and Rhythm, S1/S2 Lungs: Positive: Decreased Breath Sounds Neuro: Positive: Grossly Intact Abdomen: Positive: Soft, Active Bowel Sounds. Negative: Tender Skin: Positive: Clear. Negative: Rash Musculoskeletal: other (s/p R AKA) Extremities: Absent: edema - Labs and Meds Coagulation 12/10/18 Range/Units 05:22 PT 14.9 (12.2-14.9) Sec. INR 1.10 (0.87-1.13) CBC 12/09/18 Range/Units 15:41 WBC 7.4 (4.5-11.0) K/mm3 RBC 2.99 L (3.65-5.03) M/mm3 Hgb 8.4 L (11.8-15.2) gm/dl Hct 26.0 L (35.5-45.6) % Plt Count 188 (140-440) K/mm3 Lymph # 1.3 (1.2-5.4) K/mm3 [place] # 0.7 (0.0-0.8) K/mm3 Eos # 0.3 (0.0-0.4) K/mm3 Baso # 0.1 (0.0-0.1) K/mm3 Comprehensive Metabolic Panel 12/09/18 Range/Units 15:41 Sodium 150 H (137-145) mmol/L Potassium 4.1 (3.6-5.0) mmol/L Chloride 115.5 H (98-107) mmol/L Carbon Dioxide 23 (22-30) mmol/L BUN 33 H (9-20) mg/dL Creatinine 2.4 H (0.8-1.5) mg/dL Glucose 101 H (75-100) mg/dL Calcium 8.0 L (8.4-10.2) mg/dL - Imaging and Cardiology EKG: report reviewed, image reviewed Echo: report reviewed (10/2016 showed EF 55-60%, mild LVH, impaired relaxation, trace MR and trace TR.) - EKG Sinus rhythms and dysrhythmias: sinus rhythm
[2018-12-10] MEDS ORDERED: NACL 0.9% 500 ML 0 ML ONE (11:13)
--- NOTE | 2018-12-10 11:46 | Progress Note ---
Subjective Date of service: 12/10/18 Principal diagnosis: PSVT, Hematuria, Bladder outlet obst, Acute on CKD, HTN Interval history: CC gross hematuria 73-year-old male who presents to the emergency department with a heart rate of approximately 180 in SVT. His is not the greatest historian. However she states that he has had hematuria and lower abdominal suprapubic discomfort since yesterday. The patient himself is not complaining of anything actively but he does have a history of dementia. does recall that the patient had SVT and a Caldwell in the past. He has previous amputation. Apparently he has presented here in 2017 under very similar circumstances pt pulled out caldwell recently condom cath discussed with Dr. Nato barreto to proceed with cysto under anesthesia abd mildly distended 16F caldwell place (wire) -caldwell bloody now (intermittently) it appears pt is pulling on caldwell CTAP+ stones, mild hydro A/P gross hematuria history of dementia caldwell - irrigated q 4 hrs & prn with 30-60 cc saline recommend mittens on hand so won't pull caldwell discussed with - needs cysto, possbile suprapubic catheter (abd binder)---tomorrow Objective - Constitutional Vitals: Vital Signs - 12hr 12/10/18 12/10/18 12/10/18 04:43 08:06 09:28 Temperature 97.8 F 98.8 F Pulse Rate 68 57 L Respiratory 18 18 Rate Blood Pressure 154/93 134/76 134/76 O2 Sat by Pulse 98 Oximetry - Labs CBC & Chem 7: 12/09/18 15:41 12/09/18 15:41 Labs: Abnormal lab results 12/09/18 12/09/18 12/09/18 Range/Units 10:07 15:41 15:41 RBC 2.99 L (3.65-5.03) M/mm3 Hgb 8.4 L (11.8-15.2) gm/dl Hct 26.0 L (35.5-45.6) % RDW 16.6 H (13.2-15.2) % [place] % (Auto) 9.7 H (0.0-7.3) % Eos % (Auto) 4.4 H (0.0-4.3) % Sodium 150 H (137-145) mmol/L Chloride 115.5 H (98-107) mmol/L BUN 33 H (9-20) mg/dL Creatinine 2.4 H (0.8-1.5) mg/dL Glucose 101 H (75-100) mg/dL Calcium 8.0 L (8.4-10.2) mg/dL Vancomycin Trough 24.1 H (5.0-20.0) ug/mL Medications & Allergies - Medications Allergies/Adverse Reactions: Allergies No Known Allergies Allergy (Unverified 05/13/15 15:03) Home Medications: Home Medications Medication Instructions Recorded Confirmed Last Taken Type Aspirin [Aspirin BABY CHEW TAB] 81 mg PO DAILY 05/01/15 12/05/18 05/12/15 History Carvedilol [Coreg] 25 mg PO DAILY 12/05/18 12/05/18 Unknown History Lisinopril [Zestril] 40 mg PO DAILY 12/05/18 12/05/18 Unknown History Sertraline [Zoloft] 50 mg PO DAILY 12/05/18 12/05/18 Unknown History Active Medications: Generic Name Dose Route Start Last Admin Trade Name Freq PRN Reason Stop Dose Admin Acetaminophen 650 mg 12/05/18 15:47 Tylenol PO Q4H PRN Pain MILD(1-3)/Fever >100.5/LEMON Acetaminophen/Hydrocodone Bitart 1 each 12/05/18 15:44 12/09/18 05:31 [place] 5/325 PO 1 each Q6HR PRN Administration Pain Albuterol 2.5 mg 12/05/18 15:47 Proventil IH Q4HRT PRN Shortness Of Breath Amlodipine Besylate 5 mg 12/06/18 10:00 12/10/18 09:28 Norvasc PO 5 mg QDAY BERONICA Administration Aspirin 81 mg 12/06/18 10:00 12/10/18 09:29 Baby Aspirin PO 81 mg QDAY BERONICA Administration Enoxaparin Sodium 30 mg 12/10/18 10:00 12/10/18 09:28 Lovenox SUB-Q 30 mg QDAY BERONICA Administration Sodium Chloride 500 mls @ 100 mls/hr 12/09/18 15:00 12/10/18 06:31 Nacl 0.45% IV 75 mls/hr DIRECT BERONICA Administration Piperacillin Sod/Tazobactam Sod 2.25 gm in 50 mls @ 100 mls/hr 12/10/18 12:00 Zosyn/Ns 2.25 Gm/50ml IV 12/12/18 11:59 Q6HR [facility] Metoprolol Tartrate 50 mg 12/06/18 14:00 12/10/18 09:27 Lopressor PO Not Given TID BERONICA Morphine Sulfate 2 mg 12/05/18 15:47 12/07/18 06:36 Morphine IV 2 mg Q4H PRN Administration Pain, Moderate (4-6) Ondansetron HCl 4 mg 12/05/18 15:47 Zofran IV Q8H PRN Nausea And Vomiting Sodium Chloride 10 ml 12/05/18 22:00 12/10/18 09:32 Sodium Chloride Flush Syringe 10 Ml IV 10 ml BID BERONICA Administration Sodium Chloride 10 ml 12/05/18 15:47 Sodium Chloride Flush Syringe 10 Ml IV PRN PRN LINE FLUSH
[2018-12-10] MEDS: ZOSYN/NS 2.25 GM/50ML 2.25 GM/50 ML BAG IV SCH ×2 (14:09→18:02)
--- NOTE | 2018-12-10 14:38 | Anesthesia Consultation ---
Anesthesia Consult and Med Hx Date of service: 12/10/18 - Airway Anesthetic Teeth Evaluation: Poor ROM Head & Neck: Adequate Mental/Hyoid Distance: Adequate Mallampati Class: Class II Intubation Access Assessment: Probably Good - Pulmonary Exam CTA: Yes - Cardiac Exam Cardiac Exam: RRR - Pre-Operative Health Status ASA Pre-Surgery Classification: ASA4 Proposed Anesthetic Plan: General - Cardiovascular System Hx Hypertension: Yes
[2018-12-10] MEDS: NACL 0.9% 1000 ML 1,000 ML IV SCH (21:51)
[2018-12-11] MEDS: ZOSYN/NS 2.25 GM/50ML 2.25 GM/50 ML BAG IV SCH ×4 (00:25→20:15)
[2018-12-11] MEDS ORDERED: NACL BACTERIOSTATIC INFILTRATI ONE (06:47)
[2018-12-11] MEDS ORDERED: NACL 0.9% 1000 ML 1,000 ML ONE (06:47)
[2018-12-11] MEDS: NACL 0.9% 1000 ML 1,000 ML IV SCH (06:55)
[2018-12-11] MEDS ORDERED: XYLOCAINE MPF 2% ONE (07:21)
--- NOTE | 2018-12-11 07:21 | Anesthesia Day of Surgery ---
Anesthesia Day of Surgery - Day of Surgery Patient Examined: Yes Patient H&P Reviewed: Yes Patient is NPO: Yes Beta Blockers: No Cardiac Clearance: No Pulmonary Clearance: No Yoseph's Test: N/A
[2018-12-11] MEDS ORDERED: DIPRIVAN 10 MG/ML IV ONE (07:22)
[2018-12-11] MEDS ORDERED: SUBLIMAZE ONE (07:22)
[2018-12-11 07:27] LABS: INR 1.09 (0.87-1.13)
[2018-12-11] MEDS ORDERED: DILAUDID IV PRN (07:30)
[2018-12-11] MEDS ORDERED: OMNIPAQUE (300 MG) IR ONE (08:37)
--- NOTE | 2018-12-11 08:55 | Post Operative Note ---
Date of procedure: 12/11/18 Pre-op diagnosis: gross hematuria,bladder stones Procedure: cysto, cystogram, suprapubic catheter placement, laser bladder stones (staged) Anesthesia: ANA Surgeon: KADE GUPTA Estimated blood loss: minimal Pathology: list (stones) Specimen disposition: to lab Condition: stable Disposition: PACU
[2018-12-11] MEDS ORDERED: NACL 0.9% 500 ML 500 ML IV ONE (09:00)
[2018-12-11] MEDS ORDERED: APRESOLINE ONE (09:18)
[2018-12-11] MEDS: LOVENOX SUB-Q SCH (10:00)
[2018-12-11] MEDS ORDERED: WATER FOR IRRIG STERILE ONE (10:18)
[2018-12-11] MEDS ORDERED: NACL 0.9% 1,000 ML IR ONE (10:19)
[2018-12-11] MEDS ORDERED: LACTATED RINGERS 1,000 ML ONE (10:58)
--- NOTE | 2018-12-11 12:46 | Operative Report ---
PREOPERATIVE DIAGNOSES: Gross hematuria, bladder stone, neurogenic bladder. POSTOPERATIVE DIAGNOSES: Gross hematuria, bladder stone, neurogenic bladder. PROCEDURE: Cystoscopy, suprapubic catheter placement, cystogram, clot evacuation, holmium laser lithotripsy of bladder stones (staged procedure). SURGEON: Vahid Bettencourt MD ANESTHESIA: General. ESTIMATED BLOOD LOSS: Minimal. FLUIDS: Crystalloid. COMPLICATIONS: No complications. INDICATIONS: This patient is a 73-year-old gentleman, who was admitted with gross hematuria and supraventricular tachycardia. Chambers catheter was placed in the Emergency Room. The patient had gross hematuria. He had been anticoagulated due to his cardiac disease. Cardiology did not want to proceed with cystoscopy initially until further evaluation was done. However, he continued to have hematuria. CT of abdomen and pelvis revealed a bladder stone, mild hydronephrosis. It was concerned that the patient may also have bladder tumor. This was discussed with the family. The patient was observed in the hospital for several days. He has a history of dementia and pulled out his Chambers catheter by accident. Due to these findings also discussed with the family a possible suprapubic catheter placement with abdominal binder and admittance to reduce the risk of the patient pulling the catheter out and less irritation from his penis. Risks, benefits, and complications were explained. The patient is still at high risk, but we needed to proceed. DESCRIPTION OF PROCEDURE: The patient was taken to the operative suite, placed in a supine position. 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 Cystoscopy was performed. No urethral abnormalities. His prostate did display some mild to moderate trilobar obstruction. Two obvious bladder stones could be appreciated, approximately 2 cm each. No bladder tumors could be appreciated. Using 500 micron holmium laser, lithotripsy of the stones was performed up to 12 watson. Stones were very hard and difficult to break. As the stone started to break, there was more edema of the bladder and starting to have a little more bleeding making it difficult to see the stones. At this point, I felt it may be prudent to stop and stage the procedure. However, I wanted to place a suprapubic catheter for better urine control. Using a curved Lowsley retractor at the lower aspect of the bladder just above the pubic symphysis, 1 cm incision was made. The Lowsley retractor was popped through stitch and a 16-[place] tip catheter was pulled into the bladder, stitch was cut. Scope followed the catheter back into the bladder with 10 mL of sterile water in the balloon. Cystogram confirmed adequate position. The bladder clot as well as stone fragments were removed. Also, part of the procedure was clot evacuation. The patient tolerated the procedure well. 2-0 silk was placed to secure the suprapubic catheter. He had an abdominal binder. He was extubated and taken to recovery room. JOB# [id number] MAICOL/NAOMY
--- NOTE | 2018-12-11 15:37 | Progress Note ---
Assessment and Plan Assessment and plan: (1) SIRS (systemic inflammatory response syndrome) Empiric antibiotic therapy, IVF resuscitation therapy Elevated lactic acid level resolved after IV fluid resuscitation Urine and blood culture negative so far (2) Hematuria Dr. Bettencourt consulted and did cystoscopy and suprapubic catheter placement Laser for stone (3) Bladder outlet obstruction - Status post prophylactic placement (4) Supraventricular tachycardia Cardioversion with Adenosine, continue beta edwin therapy Cardiology consult appreciated, cleared for procedure (5) Acute on chronic renal failure IV Fluids for now BMP in the morning (6) DVT prophylaxis SCD to BLE while in bed. Lovenox Disposition; continue inpatient care History Interval history: Patient was seen and evaluated this morning after he come back from the procedure. Patient have any complaints. I have discussed the management plan with his . patient took off his IV lines last night. Currently he is on mittens. Hospitalist Physical - Physical exam Narrative exam: Not in cardiopulmonary distress. The patient appeared well nourished and normally developed. Vital signs as documented. Head exam is unremarkable. No scleral icterus . Neck is without jugular venous distension, thyromegaly, or carotid bruits. Lungs are clear to auscultation. Cardiac exam reveals regular rate and Rhythm. Abdominal exam reveals normal bowel sounds, no masses, no organomegaly and no aortic enlargement. 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 - Constitutional Vitals: Temp Pulse Resp BP Pulse Ox 99.4 F 95 H 18 154/91 99 12/11/18 13:57 12/11/18 13:57 12/11/18 13:57 12/11/18 13:57 12/11/18 13:57 General appearance: Present: no acute distress, well-nourished Results - Labs CBC & Chem 7: 12/09/18 15:41 12/09/18 15:41 Labs: Laboratory Last Values WBC 7.4 K/mm3 (4.5-11.0) 12/09/18 15:41 RBC 2.99 M/mm3 (3.65-5.03) L 12/09/18 15:41 Hgb 8.4 gm/dl (11.8-15.2) L 12/09/18 15:41 Hct 26.0 % (35.5-45.6) L 12/09/18 15:41 MCV 87 fl (84-94) 12/09/18 15:41 MCH 28 pg (28-32) 12/09/18 15:41 MCHC 32 % (32-34) 12/09/18 15:41 RDW 16.6 % (13.2-15.2) H 12/09/18 15:41 Plt Count 188 K/mm3 (140-440) 12/09/18 15:41 Lymph % (Auto) 17.9 % (13.4-35.0) 12/09/18 15:41 [place] % (Auto) 9.7 % (0.0-7.3) H 12/09/18 15:41 Eos % (Auto) 4.4 % (0.0-4.3) H 12/09/18 15:41 Baso % (Auto) 0.9 % (0.0-1.8) 12/09/18 15:41 Lymph # 1.3 K/mm3 (1.2-5.4) 12/09/18 15:41 [place] # 0.7 K/mm3 (0.0-0.8) 12/09/18 15:41 Eos # 0.3 K/mm3 (0.0-0.4) 12/09/18 15:41 Baso # 0.1 K/mm3 (0.0-0.1) 12/09/18 15:41 Seg Neutrophils % 67.1 % (40.0-70.0) 12/09/18 15:41 Seg Neutrophils # 5.0 K/mm3 (1.8-7.7) 12/09/18 15:41 PT 14.8 Sec. (12.2-14.9) 12/11/18 05:56 INR 1.09 (0.87-1.13) 12/11/18 05:56 APTT 27.0 Sec. (24.2-36.6) 12/05/18 13:43 Sodium 150 mmol/L (137-145) H 12/09/18 15:41 Potassium 4.1 mmol/L (3.6-5.0) 12/09/18 15:41 Chloride 115.5 mmol/L (98-107) H 12/09/18 15:41 Carbon Dioxide 23 mmol/L (22-30) 12/09/18 15:41 Anion Gap 16 mmol/L 12/09/18 15:41 BUN 33 mg/dL (9-20) H 12/09/18 15:41 Creatinine 2.4 mg/dL (0.8-1.5) H 12/09/18 15:41 Estimated GFR 32 ml/min 12/09/18 15:41 BUN/Creatinine Ratio 14 % 12/09/18 15:41 Glucose 101 mg/dL (75-100) H 12/09/18 15:41 POC Glucose 93 (70-105) 12/06/18 12:55 Lactic Acid 1.90 mmol/L (0.7-2.0) 12/06/18 12:07 Calcium 8.0 mg/dL (8.4-10.2) L 12/09/18 15:41 Magnesium 1.90 mg/dL (1.7-2.3) 12/05/18 13:25 Total Bilirubin 0.50 mg/dL (0.1-1.2) 12/05/18 13:25 Direct Bilirubin < 0.2 mg/dL (0-0.2) 12/05/18 13:25 AST 19 units/L (5-40) 12/05/18 13:25 ALT 13 units/L (7-56) 12/05/18 13:25 Alkaline Phosphatase 86 units/L (35-129) 12/05/18 13:25 Total Creatine Kinase 137 units/L (55-170) 12/05/18 13:43 CK-MB (CK-2) 2.0 ng/mL (0.0-4.0) 12/05/18 13:43 CK-MB (CK-2) Rel Index 1.4 (0-4) 12/05/18 13:43 Troponin T 0.014 ng/mL (0.00-0.029) 12/05/18 13:43 NT-Pro-B Natriuret Pep 556.5 pg/mL (0-900) 12/05/18 13:25 Total Protein 7.0 g/dL (6.3-8.2) 12/05/18 13:25 Albumin 3.3 g/dL (3.9-5) L 12/05/18 13:25 Albumin/Globulin Ratio 0.9 % 12/05/18 13:25 Lipase 29 units/L (13-60) 12/05/18 13:25 TSH 1.620 mlU/mL (0.270-4.200) 12/06/18 12:07 Free T4 1.14 ng/dL (0.76-1.46) 12/06/18 12:07 Vancomycin Trough 24.1 ug/mL (5.0-20.0) H 12/09/18 10:07 Blood Type O POSITIVE 12/11/18 07:20 Antibody Screen Negative 12/11/18 07:20 Crossmatch See Detail 12/11/18 07:20 Nutrition/Malnutrition Assess - Dietary Evaluation Nutrition/Malnutrition Findings: Nutrition Notes Start: 12/06/18 15:44 Freq: Status: Active Protocol: Document 12/06/18 15:44 OL (Rec: 12/06/18 15:46 OL [id number]) Nutrition Notes Need for Assessment generated from: Education Initial or Follow up Brief Note Current Diet NPO Subjective/Other Information RD screen for coumadin education. Coumadin not given today, but pt. usually takes coumadin at home. Provided education to at bedside. #1 Nutrition Diagnosis Food and nutrition-related knowledge deficit Etiology coumadin/vitamin D DNI As Evidenced by Signs and Symptoms lack of exposure to nutrition information, unaware of DNI Nutrition Intervention Teaching Recipient Spouse Learning Readiness Good Teaching Methods Discussion,Handout Response to Teaching Verbalize understanding Education Handouts Provided Vitamin K and medications Barriers to Learning No Barriers RD phone number provided Yes Patient aware of follow up options Yes Revisit per MD consult or patient Sign Off request:
[2018-12-11 18:45] LABS: Basophils # (Auto) 0.1 K/mm3 (0.0-0.1); Basophils % (Auto) 0.4 % (0.0-1.8); Eosinophils # (Auto) 0.2 K/mm3 (0.0-0.4); Eosinophils % (Auto) 1.4 % (0.0-4.3); Hematocrit 32.8 % (35.5-45.6); Hemoglobin 10.5 gm/dl (11.8-15.2); Lymphocytes # (Auto) 0.7 K/mm3 (1.2-5.4); Lymphocytes % (Auto) 5.7 % (13.4-35.0); Mean Corpuscular HGB Conc 32 % (32-34); Mean Corpuscular Volume 87 fl (84-94); Monocytes # (Auto) 0.8 K/mm3 (0.0-0.8); Monocytes % (Auto) 5.7 % (0.0-7.3); Platelet Count 200 K/mm3 (140-440); Red Blood Count 3.75 M/mm3 (3.65-5.03); Red Cell Distribution Width 16.3 % (13.2-15.2)
[2018-12-11 18:58] LABS: Calcium 7.6 mg/dL (8.4-10.2)
[2018-12-11] MEDS: LOPRESSOR PO SCH ×2 (19:06→21:26)
[2018-12-11] MEDS ORDERED: LOPRESSOR IV ONE (20:13)
[2018-12-11] MEDS: SODIUM CHLORIDE FLUSH SYRINGE 10 ML IV SCH (21:25)
[2018-12-11] MEDS ORDERED: LOPRESSOR PO ONE (23:45)
[2018-12-12] MEDS: ZOSYN/NS 2.25 GM/50ML 2.25 GM/50 ML BAG IV SCH ×2 (00:25→06:41)
[2018-12-12 06:49] LABS: Basophils % (Auto) 0.4 % (0.0-1.8); Eosinophils # (Auto) 0.4 K/mm3 (0.0-0.4); Hematocrit 30.9 % (35.5-45.6); Hemoglobin 9.9 gm/dl (11.8-15.2); Lymphocytes # (Auto) 1.3 K/mm3 (1.2-5.4); Lymphocytes % (Auto) 10.7 % (13.4-35.0); Mean Corpuscular HGB Conc 32 % (32-34); Mean Corpuscular Volume 87 fl (84-94); Monocytes % (Auto) 8.2 % (0.0-7.3); Platelet Count 193 K/mm3 (140-440); Red Blood Count 3.55 M/mm3 (3.65-5.03); Red Cell Distribution Width 16.3 % (13.2-15.2)
[2018-12-12 07:00] LABS: INR 1.13 (0.87-1.13)
[2018-12-12 07:25] LABS: Calcium 7.9 mg/dL (8.4-10.2)
--- NOTE | 2018-12-12 08:19 | Fluoroscopy Report ---
FLUOROSCOPY CYSTOGRAM STATIC History: Gross hematuria, bladder stone Findings: Fluoroscopy was provided by radiology during cystogram by the urologist. 4 fluoroscopic images were saved. The images demonstrate a small amount of contrast in the bladder. 2 bladder stones were seen and removed with the use of a holmium laser per the operative notes. No obvious bladder mass, extravasation or vesicoureteral reflux. Please correlate with the procedural report as needed. Impression: Removal of bladder stones during cystogram.
[2018-12-12] MEDS: LOPRESSOR PO SCH ×3 (10:18→22:07)
[2018-12-12] MEDS: NORCO 5/325 PO PRN ×2 (10:18→17:40)
[2018-12-12] MEDS: NORVASC PO SCH ×2 (10:19→22:03)
--- NOTE | 2018-12-12 11:39 | Progress Note ---
Assessment and Plan Pt had another bout of SVT yesterday evening for which he received adenosine. Optimize HR - increase lopressor. The patient has been seen in conjunction with Dr. Dutton who agrees with the assessment and plan of care. - Patient Problems (1) Paroxysmal SVT (supraventricular tachycardia) Current Visit: Yes Status: Chronic (2) Hematuria Current Visit: Yes Status: Acute (3) Bladder outlet obstruction Current Visit: Yes Status: Acute (4) Acute on chronic renal failure Current Visit: Yes Status: Acute (5) History of CVA (cerebrovascular accident) Current Visit: Yes Status: Chronic (6) HTN (hypertension) Current Visit: Yes Status: Chronic Qualifiers: Hypertension type: essential hypertension Qualified Code(s): I10 - Essential (primary) hypertension (7) History of DVT (deep vein thrombosis) Current Visit: Yes Status: Chronic (8) Dementia Current Visit: Yes Status: Chronic Subjective Date of service: 12/12/18 Principal diagnosis: PSVT, Hematuria, Bladder outlet obst, Acute on CKD, HTN Interval history: pt resting in bed, no current cardiac complaints. in SR on telemetry. had a bout of SVT yesterday evening for which he received adenosine. Objective Last Vital Signs Temp 99.6 F 12/12/18 09:32 Pulse 73 12/12/18 09:32 Resp 20 12/12/18 09:32 BP 209/99 12/12/18 09:32 Pulse Ox 100 12/12/18 09:32 - Physical Examination General: No Apparent Distress HEENT: Positive: EOMI, Normocephaly, Mucus Membranes Moist Neck: Positive: neck supple, trachea midline Cardiac: Positive: Reg Rate and Rhythm, S1/S2 Lungs: Positive: Decreased Breath Sounds Neuro: Positive: Grossly Intact Abdomen: Positive: Soft, Active Bowel Sounds. Negative: Tender Skin: Positive: Clear. Negative: Rash Musculoskeletal: other (s/p R AKA) Extremities: Absent: edema - Labs and Meds Coagulation 12/12/18 Range/Units 05:49 PT 15.2 H (12.2-14.9) Sec. INR 1.13 (0.87-1.13) CBC 12/11/18 12/12/18 Range/Units 18:36 05:49 WBC 13.1 H 12.1 H (4.5-11.0) K/mm3 RBC 3.75 3.55 L (3.65-5.03) M/mm3 Hgb 10.5 L 9.9 L (11.8-15.2) gm/dl Hct 32.8 L D 30.9 L (35.5-45.6) % Plt Count 200 193 (140-440) K/mm3 Lymph # 0.7 L 1.3 (1.2-5.4) K/mm3 [place] # 0.8 1.0 H (0.0-0.8) K/mm3 Eos # 0.2 0.4 (0.0-0.4) K/mm3 Baso # 0.1 0.0 (0.0-0.1) K/mm3 Comprehensive Metabolic Panel 12/11/18 12/12/18 Range/Units 18:36 05:49 Sodium 141 D 144 (137-145) mmol/L Potassium 4.0 3.9 (3.6-5.0) mmol/L Chloride 110.4 H 113.6 H (98-107) mmol/L Carbon Dioxide 20 L 21 L (22-30) mmol/L BUN 18 15 (9-20) mg/dL Creatinine 1.6 H 1.6 H (0.8-1.5) mg/dL Glucose 147 H 85 (75-100) mg/dL Calcium 7.6 L 7.9 L (8.4-10.2) mg/dL - Imaging and Cardiology EKG: report reviewed, image reviewed Echo: report reviewed (10/2016 showed EF 55-60%, mild LVH, impaired relaxation, trace MR and trace TR.) - EKG Sinus rhythms and dysrhythmias: sinus rhythm
[2018-12-12] MEDS ORDERED: LOPRESSOR PO ONE (12:00)
[2018-12-12] MEDS: LOVENOX SUB-Q SCH ×2 (13:00→20:08)
--- NOTE | 2018-12-12 15:48 | Progress Note ---
Assessment and Plan Assessment and plan: (1) SIRS (systemic inflammatory response syndrome) Empiric antibiotic therapy, IVF resuscitation therapy Elevated lactic acid level resolved after IV fluid resuscitation Urine and blood culture negative so far (2) Hematuria Dr. Bettencourt consulted and did cystoscopy and suprapubic catheter placement Laser for stone Patient is given packed RBC after the procedure and H&H is stable (3) Bladder outlet obstruction - Status post prophylactic placement (4) Supraventricular tachycardia - Patient had episode of SVT last night and was given adenosine - Cardiology consulted and increased Lopressor - We will monitor (5) Acute on chronic renal failure IV Fluids for now BMP in the morning (6) DVT prophylaxis SCD to BLE while in bed. Lovenox Disposition; continue inpatient care History Interval history: Patient was seen and evaluated this morning patient didn't have any complaints. Patient had episodes of SVT and adenosine was given last night. Hospitalist Physical - Physical exam Narrative exam: Not in cardiopulmonary distress. The patient appeared well nourished and normally developed. Vital signs as documented. Head exam is unremarkable. No scleral icterus . Neck is without jugular venous distension, thyromegaly, or carotid bruits. Lungs are clear to auscultation. Cardiac exam reveals regular rate and Rhythm. Abdominal exam reveals normal bowel sounds, no masses, no organomegaly and no aortic enlargement. ; suprapubic catheter in place, clear urine Extremities right AKA TECHNICAL SERVICES CONSULTANT: Alert and oriented. - Constitutional Vitals: Temp Pulse Resp BP Pulse Ox 99.6 F 73 20 209/99 100 12/12/18 09:32 12/12/18 09:32 12/12/18 09:32 12/12/18 09:32 12/12/18 09:32 General appearance: Present: no acute distress, well-nourished Results - Labs CBC & Chem 7: 12/12/18 05:49 12/12/18 05:49 Labs: Laboratory Last Values WBC 12.1 K/mm3 (4.5-11.0) H 12/12/18 05:49 RBC 3.55 M/mm3 (3.65-5.03) L 12/12/18 05:49 Hgb 9.9 gm/dl (11.8-15.2) L 12/12/18 05:49 Hct 30.9 % (35.5-45.6) L 12/12/18 05:49 MCV 87 fl (84-94) 12/12/18 05:49 MCH 28 pg (28-32) 12/12/18 05:49 MCHC 32 % (32-34) 12/12/18 05:49 RDW 16.3 % (13.2-15.2) H 12/12/18 05:49 Plt Count 193 K/mm3 (140-440) 12/12/18 05:49 Lymph % (Auto) 10.7 % (13.4-35.0) L 12/12/18 05:49 [place] % (Auto) 8.2 % (0.0-7.3) H 12/12/18 05:49 Eos % (Auto) 3.0 % (0.0-4.3) 12/12/18 05:49 Baso % (Auto) 0.4 % (0.0-1.8) 12/12/18 05:49 Lymph # 1.3 K/mm3 (1.2-5.4) 12/12/18 05:49 [place] # 1.0 K/mm3 (0.0-0.8) H 12/12/18 05:49 Eos # 0.4 K/mm3 (0.0-0.4) 12/12/18 05:49 Baso # 0.0 K/mm3 (0.0-0.1) 12/12/18 05:49 Seg Neutrophils % 77.7 % (40.0-70.0) H 12/12/18 05:49 Seg Neutrophils # 9.4 K/mm3 (1.8-7.7) H 12/12/18 05:49 PT 15.2 Sec. (12.2-14.9) H 12/12/18 05:49 INR 1.13 (0.87-1.13) 12/12/18 05:49 APTT 27.0 Sec. (24.2-36.6) 12/05/18 13:43 Sodium 144 mmol/L (137-145) 12/12/18 05:49 Potassium 3.9 mmol/L (3.6-5.0) 12/12/18 05:49 Chloride 113.6 mmol/L (98-107) H 12/12/18 05:49 Carbon Dioxide 21 mmol/L (22-30) L 12/12/18 05:49 Anion Gap 13 mmol/L 12/12/18 05:49 BUN 15 mg/dL (9-20) 12/12/18 05:49 Creatinine 1.6 mg/dL (0.8-1.5) H 12/12/18 05:49 Estimated GFR 52 ml/min 12/12/18 05:49 BUN/Creatinine Ratio 9 % 12/12/18 05:49 Glucose 85 mg/dL (75-100) 12/12/18 05:49 POC Glucose 93 (70-105) 12/06/18 12:55 Lactic Acid 1.90 mmol/L (0.7-2.0) 12/06/18 12:07 Calcium 7.9 mg/dL (8.4-10.2) L 12/12/18 05:49 Magnesium 1.90 mg/dL (1.7-2.3) 12/05/18 13:25 Total Bilirubin 0.50 mg/dL (0.1-1.2) 12/05/18 13:25 Direct Bilirubin < 0.2 mg/dL (0-0.2) 12/05/18 13:25 AST 19 units/L (5-40) 12/05/18 13:25 ALT 13 units/L (7-56) 12/05/18 13:25 Alkaline Phosphatase 86 units/L (35-129) 12/05/18 13:25 Total Creatine Kinase 137 units/L (55-170) 12/05/18 13:43 CK-MB (CK-2) 2.0 ng/mL (0.0-4.0) 12/05/18 13:43 CK-MB (CK-2) Rel Index 1.4 (0-4) 12/05/18 13:43 Troponin T 0.014 ng/mL (0.00-0.029) 12/05/18 13:43 NT-Pro-B Natriuret Pep 556.5 pg/mL (0-900) 12/05/18 13:25 Total Protein 7.0 g/dL (6.3-8.2) 12/05/18 13:25 Albumin 3.3 g/dL (3.9-5) L 12/05/18 13:25 Albumin/Globulin Ratio 0.9 % 12/05/18 13:25 Lipase 29 units/L (13-60) 12/05/18 13:25 TSH 1.620 mlU/mL (0.270-4.200) 12/06/18 12:07 Free T4 1.14 ng/dL (0.76-1.46) 12/06/18 12:07 Vancomycin Trough 24.1 ug/mL (5.0-20.0) H 12/09/18 10:07 Blood Type O POSITIVE 12/11/18 07:20 Antibody Screen Negative 12/11/18 07:20 Crossmatch See Detail 12/11/18 07:20 Nutrition/Malnutrition Assess - Dietary Evaluation Nutrition/Malnutrition Findings: Nutrition Notes Start: 12/06/18 15:44 Freq: Status: Active Protocol: Document 12/12/18 14:58 RM (Rec: 12/12/18 15:01 RM [id number]) Nutrition Notes Need for Assessment generated from: LOS Initial or Follow up Brief Note Current Diagnosis Acute Kidney Injury,CKD(stage I-IV),Hypertension,Heart Failure,Stroke Other Pertinent Diagnosis Depression, R BKA, Dementia Current Diet Cardiac Labs/Tests Reviewed Pertinent Medications Reviewed Height 5 ft 9 in Weight 85.2 kg [place] Body Weight (kg) 72.72 BMI 27.7 Subjective/Other Information Screened for LOS. Pt stated that his appetite is good and that he eats most of his meals. Stated UBW was 196 lbs last month. Tech confirmed intakes. Burn Absent Trauma Absent Nutrition Intervention Revisit per MD consult or patient Sign Off request:
[2018-12-12] MEDS: SODIUM CHLORIDE FLUSH SYRINGE 10 ML IV SCH ×2 (22:01→22:02)
[2018-12-12] MEDS: BABY ASPIRIN PO SCH (22:08)
[2018-12-13] MEDS: NORCO 5/325 PO PRN ×3 (02:32→22:55)
[2018-12-13 07:02] LABS: Basophils % (Auto) 0.5 % (0.0-1.8); Eosinophils # (Auto) 0.4 K/mm3 (0.0-0.4); Eosinophils % (Auto) 4.1 % (0.0-4.3); Hematocrit 29.7 % (35.5-45.6); Hemoglobin 9.7 gm/dl (11.8-15.2); Lymphocytes # (Auto) 1.5 K/mm3 (1.2-5.4); Lymphocytes % (Auto) 15.6 % (13.4-35.0); Mean Corpuscular HGB Conc 33 % (32-34); Mean Corpuscular Volume 86 fl (84-94); Monocytes # (Auto) 1.1 K/mm3 (0.0-0.8); Monocytes % (Auto) 11.4 % (0.0-7.3); Platelet Count 211 K/mm3 (140-440); Red Blood Count 3.44 M/mm3 (3.65-5.03); Red Cell Distribution Width 16.5 % (13.2-15.2)
[2018-12-13 07:09] LABS: INR 1.09 (0.87-1.13)
[2018-12-13 07:17] LABS: Calcium 7.7 mg/dL (8.4-10.2)
--- NOTE | 2018-12-13 11:20 | Progress Note ---
Assessment and Plan Currently stable cardiac status. Pt in SR, no SVT noted overnight. Cont present cardiac management. Will follow on as needed basis. The patient has been seen in conjunction with Dr. Dutton who agrees with the assessment and plan of care. - Patient Problems (1) Paroxysmal SVT (supraventricular tachycardia) Current Visit: Yes Status: Chronic (2) Hematuria Current Visit: Yes Status: Acute (3) Bladder outlet obstruction Current Visit: Yes Status: Acute (4) Acute on chronic renal failure Current Visit: Yes Status: Acute (5) History of CVA (cerebrovascular accident) Current Visit: Yes Status: Chronic (6) HTN (hypertension) Current Visit: Yes Status: Chronic Qualifiers: Hypertension type: essential hypertension Qualified Code(s): I10 - Essential (primary) hypertension (7) History of DVT (deep vein thrombosis) Current Visit: Yes Status: Chronic (8) Dementia Current Visit: Yes Status: Chronic Subjective Date of service: 12/13/18 Principal diagnosis: PSVT, Hematuria, Bladder outlet obst, Acute on CKD, HTN Interval history: pt resting in bed, no current cardiac complaints. in SR on telemetry, no SVT overnight. Objective Last Vital Signs Temp 98.4 F 12/13/18 08:17 Pulse 59 L 12/13/18 08:17 Resp 16 12/13/18 08:17 BP 152/83 12/13/18 08:17 Pulse Ox 100 12/13/18 08:17 - Physical Examination General: No Apparent Distress HEENT: Positive: EOMI, Normocephaly, Mucus Membranes Moist Neck: Positive: neck supple, trachea midline Cardiac: Positive: Reg Rate and Rhythm, S1/S2 Lungs: Positive: Decreased Breath Sounds Neuro: Positive: Grossly Intact Abdomen: Positive: Soft, Active Bowel Sounds. Negative: Tender Skin: Positive: Clear. Negative: Rash Musculoskeletal: other (s/p R AKA) Extremities: Absent: edema - Labs and Meds Coagulation 12/13/18 Range/Units 05:50 PT 14.8 (12.2-14.9) Sec. INR 1.09 (0.87-1.13) CBC 12/13/18 Range/Units 05:50 WBC 9.6 (4.5-11.0) K/mm3 RBC 3.44 L (3.65-5.03) M/mm3 Hgb 9.7 L (11.8-15.2) gm/dl Hct 29.7 L (35.5-45.6) % Plt Count 211 (140-440) K/mm3 Lymph # 1.5 (1.2-5.4) K/mm3 [place] # 1.1 H (0.0-0.8) K/mm3 Eos # 0.4 (0.0-0.4) K/mm3 Baso # 0.0 (0.0-0.1) K/mm3 Comprehensive Metabolic Panel 12/13/18 Range/Units 05:50 Sodium 144 (137-145) mmol/L Potassium 3.9 (3.6-5.0) mmol/L Chloride 113.5 H (98-107) mmol/L Carbon Dioxide 20 L (22-30) mmol/L BUN 15 (9-20) mg/dL Creatinine 1.5 (0.8-1.5) mg/dL Glucose 78 (75-100) mg/dL Calcium 7.7 L (8.4-10.2) mg/dL - Imaging and Cardiology EKG: report reviewed, image reviewed Echo: report reviewed (10/2016 showed EF 55-60%, mild LVH, impaired relaxation, trace MR and trace TR.) - EKG Sinus rhythms and dysrhythmias: sinus rhythm
[2018-12-13] MEDS: LOVENOX SUB-Q SCH (12:41)
[2018-12-13] MEDS: NORVASC PO SCH (12:42)
[2018-12-13] MEDS: LOPRESSOR PO SCH ×2 (12:43→22:55)
[2018-12-13] MEDS: SODIUM CHLORIDE FLUSH SYRINGE 10 ML IV SCH ×2 (12:45→22:56)
[2018-12-13] MEDS: NACL 0.9% 1000 ML 1,000 ML IV SCH (13:05)
--- NOTE | 2018-12-13 15:30 | Progress Note ---
Assessment and Plan Assessment and plan: (1) SIRS (systemic inflammatory response syndrome) Empiric antibiotic therapy, IVF resuscitation therapy Elevated lactic acid level resolved after IV fluid resuscitation Urine and blood culture negative so far (2) Hematuria Dr. Bettencourt consulted and did cystoscopy and suprapubic catheter placement Laser for stone Patient is given packed RBC after the procedure and H&H is stable (3) Bladder outlet obstruction - Status post prophylactic placement (4) Supraventricular tachycardia - Patient had episode of SVT last night and was given adenosine - Cardiology consulted and increased Lopressor - We will monitor (5) Acute on chronic renal failure IV Fluids for now BMP in the morning (6) DVT prophylaxis SCD to BLE while in bed. Lovenox Disposition; continue inpatient care, possible DC tomorrow. History Interval history: Patient was seen and evaluated this morning patient didn't have any complaints. patient was stable overnight, he is on mittens. Hospitalist Physical - Physical exam Narrative exam: Not in cardiopulmonary distress. The patient appeared well nourished and normally developed. Vital signs as documented. Head exam is unremarkable. No scleral icterus . Neck is without jugular venous distension, thyromegaly, or carotid bruits. Lungs are clear to auscultation. Cardiac exam reveals regular rate and Rhythm. Abdominal exam reveals normal bowel sounds, no masses, no organomegaly and no aortic enlargement. ; suprapubic catheter in place, clear urine Extremities right AKA CHEMICAL ECONOMIST: Alert and oriented. - Constitutional Vitals: Temp Pulse Resp BP Pulse Ox 98.4 F 67 16 152/83 100 12/13/18 08:17 12/13/18 12:43 12/13/18 08:17 12/13/18 12:43 12/13/18 08:17 General appearance: Present: no acute distress, well-nourished Results - Labs CBC & Chem 7: 12/13/18 05:50 12/13/18 05:50 Labs: Laboratory Last Values WBC 9.6 K/mm3 (4.5-11.0) 12/13/18 05:50 RBC 3.44 M/mm3 (3.65-5.03) L 12/13/18 05:50 Hgb 9.7 gm/dl (11.8-15.2) L 12/13/18 05:50 POC Hgb 7.5 (12-17) L 12/11/18 07:44 Hct 29.7 % (35.5-45.6) L 12/13/18 05:50 POC Hct 22 (38-51) L 12/11/18 07:44 MCV 86 fl (84-94) 12/13/18 05:50 MCH 28 pg (28-32) 12/13/18 05:50 MCHC 33 % (32-34) 12/13/18 05:50 RDW 16.5 % (13.2-15.2) H 12/13/18 05:50 Plt Count 211 K/mm3 (140-440) 12/13/18 05:50 Lymph % (Auto) 15.6 % (13.4-35.0) 12/13/18 05:50 [place] % (Auto) 11.4 % (0.0-7.3) H 12/13/18 05:50 Eos % (Auto) 4.1 % (0.0-4.3) 12/13/18 05:50 Baso % (Auto) 0.5 % (0.0-1.8) 12/13/18 05:50 Lymph # 1.5 K/mm3 (1.2-5.4) 12/13/18 05:50 [place] # 1.1 K/mm3 (0.0-0.8) H 12/13/18 05:50 Eos # 0.4 K/mm3 (0.0-0.4) 12/13/18 05:50 Baso # 0.0 K/mm3 (0.0-0.1) 12/13/18 05:50 Seg Neutrophils % 68.4 % (40.0-70.0) 12/13/18 05:50 Seg Neutrophils # 6.6 K/mm3 (1.8-7.7) 12/13/18 05:50 PT 14.8 Sec. (12.2-14.9) 12/13/18 05:50 INR 1.09 (0.87-1.13) 12/13/18 05:50 APTT 27.0 Sec. (24.2-36.6) 12/05/18 13:43 POC Sodium 145 mmol/L (138-146) 12/11/18 07:44 POC Potassium 3.7 (3.5-4.9) 12/11/18 07:44 POC Chloride 112 (98-109) H 12/11/18 07:44 Sodium 144 mmol/L (137-145) 12/13/18 05:50 Potassium 3.9 mmol/L (3.6-5.0) 12/13/18 05:50 Chloride 113.5 mmol/L (98-107) H 12/13/18 05:50 Carbon Dioxide 20 mmol/L (22-30) L 12/13/18 05:50 Anion Gap 14 mmol/L 12/13/18 05:50 POC BUN 19 mg/dl (8-26) 12/11/18 07:44 BUN 15 mg/dL (9-20) 12/13/18 05:50 Creatinine 1.5 mg/dL (0.8-1.5) 12/13/18 05:50 Estimated GFR 56 ml/min 12/13/18 05:50 BUN/Creatinine Ratio 10 % 12/13/18 05:50 Glucose 78 mg/dL (75-100) 12/13/18 05:50 POC Glucose 135 (70-105) H 12/11/18 18:20 Lactic Acid 1.90 mmol/L (0.7-2.0) 12/06/18 12:07 Calcium 7.7 mg/dL (8.4-10.2) L 12/13/18 05:50 Magnesium 1.90 mg/dL (1.7-2.3) 12/05/18 13:25 Total Bilirubin 0.50 mg/dL (0.1-1.2) 12/05/18 13:25 Direct Bilirubin < 0.2 mg/dL (0-0.2) 12/05/18 13:25 AST 19 units/L (5-40) 12/05/18 13:25 ALT 13 units/L (7-56) 12/05/18 13:25 Alkaline Phosphatase 86 units/L (35-129) 12/05/18 13:25 Total Creatine Kinase 137 units/L (55-170) 12/05/18 13:43 CK-MB (CK-2) 2.0 ng/mL (0.0-4.0) 12/05/18 13:43 CK-MB (CK-2) Rel Index 1.4 (0-4) 12/05/18 13:43 Troponin T 0.014 ng/mL (0.00-0.029) 12/05/18 13:43 NT-Pro-B Natriuret Pep 556.5 pg/mL (0-900) 12/05/18 13:25 Total Protein 7.0 g/dL (6.3-8.2) 12/05/18 13:25 Albumin 3.3 g/dL (3.9-5) L 12/05/18 13:25 Albumin/Globulin Ratio 0.9 % 12/05/18 13:25 Lipase 29 units/L (13-60) 12/05/18 13:25 TSH 1.620 mlU/mL (0.270-4.200) 12/06/18 12:07 Free T4 1.14 ng/dL (0.76-1.46) 12/06/18 12:07 Vancomycin Trough 24.1 ug/mL (5.0-20.0) H 12/09/18 10:07 Blood Type O POSITIVE 12/11/18 07:20 Antibody Screen Negative 12/11/18 07:20 Crossmatch See Detail 12/11/18 07:20 Nutrition/Malnutrition Assess - Dietary Evaluation Nutrition/Malnutrition Findings: Nutrition Notes Start: 12/06/18 15:44 Freq: Status: Active Protocol: Document 12/12/18 14:58 RM (Rec: 12/12/18 15:01 RM [id number]) Nutrition Notes Need for Assessment generated from: LOS Initial or Follow up Brief Note Current Diagnosis Acute Kidney Injury,CKD(stage I-IV),Hypertension,Heart Failure,Stroke Other Pertinent Diagnosis Depression, R BKA, Dementia Current Diet Cardiac Labs/Tests Reviewed Pertinent Medications Reviewed Height 5 ft 9 in Weight 85.2 kg [place] Body Weight (kg) 72.72 BMI 27.7 Subjective/Other Information Screened for LOS. Pt stated that his appetite is good and that he eats most of his meals. Stated UBW was 196 lbs last month. Tech confirmed intakes. Burn Absent Trauma Absent Nutrition Intervention Revisit per MD consult or patient Sign Off request:
[2018-12-14] MEDS: LOPRESSOR PO SCH (10:56)
[2018-12-14] MEDS: NORVASC PO SCH (10:57)
[2018-12-14] MEDS: LOVENOX SUB-Q SCH (10:57)
[2018-12-14] MEDS: SODIUM CHLORIDE FLUSH SYRINGE 10 ML IV SCH (11:08)
[2018-12-14 11:25] VITALS: BP 159/86
--- NOTE | 2018-12-14 12:06 | Discharge Summary ---
Providers - Providers Date of Admission: 12/05/18 15:47 Attending physician: ENRIQUETA FOSTER MD 12/05/18 15:05 Consult to Physician [CONS] Urgent Comment: DR GUPTA AWARE OF PT Consulting Provider: KADE GUPTA Physician Instructions: Reason For Exam: bladder outlet obstruction, sepsis 12/05/18 18:13 Consult to Physician [CONS] Routine Comment: Consulting Provider: KIMBERLY GRIMES Physician Instructions: Reason For Exam: SVT/CHF [facility] Reason for admission: hematuria, SIRS Condition: Stable Procedures: Subrapubic catheter, Cystoscopy and removal of bladder calculi Hospital course: 73 YO Male with HTN, CVA, CHF, DVT on Therapeutic Anticoagulation, Dementia, Depression presents to ED for evaluation. Pt is confused and provides limited history. Pt history provided by his . per , the patient has experienced abdominal discomfort, and blood in his urine over the past 2 days. Pt transported to [facility] by his family. Pt seen and evaluated in ED and found to have ARF suspected secondary to Bladder Outlet obstruction, SIRS, Acidosis, SIRS as well as SVT with heart rate in the 180's. Pt treated with medical cardioversion with Adenosine with normalization of heart rate. Pt admitted to Telemetry. Cardiology consulted in ED. Urology consulted in ED with placement of caldwell catheter in ED. patient was admitted to the floor and was treated with antibiotics for UTI. Urology consulted and placed suprapubic catheter and removed bladder stone. Cardiology consulted and recommend to increase metoprolol which controlled SVT. GABRIELA resolved. patient was weak and AKA, I offered subacute rehab but the prefer to take him home. Patient was hemodynamically stable at the time of discharge. patient was discharged with home health. Disposition: [id number] HOME UNDER HOME [facility] Time spent for discharge: 32 minutes - Discharge Diagnoses (1) Acidosis Status: Acute (2) Acute kidney injury superimposed on CKD Status: Acute (3) Bladder outlet obstruction Status: Acute (4) Hematuria Status: Acute (5) Lactic acidosis Status: Acute (6) PSVT (paroxysmal supraventricular tachycardia) Status: Acute (7) SIRS (systemic inflammatory response syndrome) Status: Acute Core Measure Documentation - Palliative Care Palliative Care/ Comfort Measures: Not Applicable - Core Measures Any of the following diagnoses?: none Exam - Physical Exam Narrative exam: Not in cardiopulmonary distress. The patient appeared well nourished and normally developed. Vital signs as documented. Head exam is unremarkable. No scleral icterus . Neck is without jugular venous distension, thyromegaly, or carotid bruits. Lungs are clear to auscultation. Cardiac exam reveals regular rate and Rhythm. Abdominal exam reveals normal bowel sounds, no masses, no organomegaly and no aortic enlargement. ; suprapubic catheter in place, clear urine Extremities right AKA INTERNAL COMBUSTION ENGINEER: Alert and oriented. - Constitutional Vitals: Temp Pulse Resp BP Pulse Ox 98.6 F 63 20 159/86 98 12/14/18 08:35 12/14/18 11:24 12/14/18 10:00 12/14/18 11:24 12/14/18 08:35 Plan Activity: no restrictions Weight Bearing Status: Full Weight Bearing Diet: low cholesterol, low salt Follow up with: THIERNO PALACIOS MD [Primary Care Provider] - 3-5 Days Forms: Warfarin Discharge Instruction Prescriptions: Metoprolol [Lopressor TAB] 100 mg PO BID #120 tablet
== END 2018-12-14 16:13 | disposition home health service (06) | DRG 682 ==
LOC: ED 12:38 → 4A 15:47
PROVIDERS: ADMIT Internal Medicine; ATTEND Internal Medicine
PROC: 0TCB8ZZ Extirpation of Matter from Bladder, Via Natural or Artificial Opening Endoscopic (ICD-10-PCS; principal; 2018-12-11)
PROC: 0T9B80Z Drainage of Bladder with Drainage Device, Via Natural or Artificial Opening Endoscopic (ICD-10-PCS; 2018-12-11)
PROC: BT101ZZ Fluoroscopy of Bladder using Low Osmolar Contrast (ICD-10-PCS; 2018-12-11)
PROC: 30233N1 Transfusion of Nonautologous Red Blood Cells into Peripheral Vein, Percutaneous Approach (ICD-10-PCS; 2018-12-11)
DX: N17.0 Acute kidney failure with tubular necrosis (principal); G92 Toxic encephalopathy; E43 Unspecified severe protein-calorie malnutrition; R65.11 Systemic inflammatory response syndrome (SIRS) of non-infectious origin with acute organ dysfunction; I47.1 Supraventricular tachycardia; E87.0 Hyperosmolality and hypernatremia; M62.82 Rhabdomyolysis; I13.0 Hypertensive heart and chronic kidney disease with heart failure and stage 1 through stage 4 chronic kidney disease, or unspecified chronic kidney disease; R65.10 Systemic inflammatory response syndrome (SIRS) of non-infectious origin without acute organ dysfunction; N32.0 Bladder-neck obstruction; N18.9 Chronic kidney disease, unspecified; E87.5 Hyperkalemia; F03.90 Unspecified dementia, unspecified severity, without behavioral disturbance, psychotic disturbance, mood disturbance, and anxiety; I50.9 Heart failure, unspecified; F32.9 Major depressive disorder, single episode, unspecified; I08.1 Rheumatic disorders of both mitral and tricuspid valves; R31.0 Gross hematuria; N21.0 Calculus in bladder; N31.2 Flaccid neuropathic bladder, not elsewhere classified; Z86.718 Personal history of other venous thrombosis and embolism; Z79.82 Long term (current) use of aspirin; Z86.73 Personal history of transient ischemic attack (TIA), and cerebral infarction without residual deficits; Z89.511 Acquired absence of right leg below knee; Z82.49 Family history of ischemic heart disease and other diseases of the circulatory system; Z96.642 Presence of left artificial hip joint; Z79.01 Long term (current) use of anticoagulants; Z68.27 Body mass index [BMI] 27.0-27.9, adult
CPT/HCPCS: 36415; 51702; 71045; 74176; 74430; 80048; 80076; 80202; 82140; 82365; 82550; 82553; 82803; 82962; 83690; 83735; 83880; 84439; 84443; 84484; 85025; 85027; 85610; 85730; 86850; 86900; 86901; 86920; 87040; 87086; 93005; 93010; 93306; 94760; 96365; 96366; 96367; 96375; 99292; G0378; C1758; C1769; J0153; J0360; J1170; J1650; J2060; J2185; J2270; J2543; J2704; J3010; J3370; J7030; J7040; J7120; P9016; Q9967

== ENCOUNTER 2019-01-08 16:21 | Inpatient (IN) | payer MEDICARE ==
[2019-01-08] MEDS ORDERED: ASPIRIN PO ONE (16:37)
--- NOTE | 2019-01-08 16:38 | Emergency Department Report ---
Chief Complaint: Chest Pain Stated Complaint: CHEST PAIN/SENT BY OFFICE Time Seen by Provider: 01/08/19 16:35 - HPI History of Present Illness: This is a 73 y.o. male that presents to the ER with chest pain that started this morning. - Exam Vital Signs: Vital Signs 01/08/19 16:35 Temperature 98.3 F Pulse Rate 58 L Respiratory 18 Rate Blood Pressure 106/76 O2 Sat by Pulse 97 Oximetry MSE screening note: Focused history and physical exam performed. Due to findings the following was ordered: labs, ekg, cxr ED Disposition for MSE Condition: Stable
[2019-01-08 17:11] LABS: Basophils % (Auto) 0.5 % (0.0-1.8); Eosinophils # (Auto) 0.1 K/mm3 (0.0-0.4); Eosinophils % (Auto) 1.6 % (0.0-4.3); Hematocrit 36.3 % (35.5-45.6); Hemoglobin 11.6 gm/dl (11.8-15.2); Lymphocytes # (Auto) 1.2 K/mm3 (1.2-5.4); Lymphocytes % (Auto) 13.7 % (13.4-35.0); Mean Corpuscular HGB Conc 32 % (32-34); Mean Corpuscular Volume 85 fl (84-94); Monocytes # (Auto) 1.2 K/mm3 (0.0-0.8); Monocytes % (Auto) 13.4 % (0.0-7.3); Platelet Count 235 K/mm3 (140-440); Red Blood Count 4.25 M/mm3 (3.65-5.03); Red Cell Distribution Width 16.9 % (13.2-15.2)
[2019-01-08 17:36] LABS: Calcium 8.9 mg/dL (8.4-10.2)
--- NOTE | 2019-01-08 18:24 | XRay Report ---
PROCEDURE: XR CHEST 1V AP TECHNIQUE: Frontal portable view of the chest HISTORY: Chest Pain COMPARISONS: Chest x-ray dated December 05, 2018. The report of that study is not available for review at the time of this dictation. FINDINGS: There is bilateral hypoinflation with crowding of the bronchovascular structures as was demonstrated on the previous study. There is no definite evidence of focal infiltrate, pneumothorax or pleural effusion. The cardiac silhouette is enlarged. The thoracic aorta is tortuous. The bony structures are unremarkable. IMPRESSION: 1. Hypoinflation. 2. No definite evidence of an acute pulmonary process. If further imaging is required, CT chest may be helpful. 3. Enlarged cardiac silhouette. This document is electronically signed by Christina Simon MD., January 08 2019 06:22:26 PM ET
--- NOTE | 2019-01-08 20:48 | Emergency Department Report ---
ED Chest Pain HPI - General Chief Complaint: Chest Pain Stated Complaint: CHEST PAIN/SENT BY DR BROWN Time Seen by Provider: 01/08/19 16:35 Source: patient, old records reviewed Mode of arrival: Ambulatory Limitations: No Limitations - History of Present Illness Initial Comments: 73-year-old male with a history of CHF, previous CVA, DVT, hypertension, right BKA, depression, and chronic renal insufficiency presents to Hospital complaints of episode of chest pain and rapid heartbeat this morning. Patient complained of anterior substernal chest pain described as sharp without associated symptoms. His home health nurse reported a heart rate into 100 and then it decreased to the 100s. Patient went to PMD Dr. Almaguer office at noon and had a EKG and was subsequently sent to the ER for evaluation. Patient has a history of DVT but is no longer anticoagulated. He has a recent admission here and November for hematuria, SIRS, suprapubic catheter placed to out flow obstruction due to bladder stone and had patient had an episode a SVT to admission. Patient still has a suprapubic catheter in place but because he is able to urinate again. He denies pain or shortness of breath at this time. Severity scale (0 -10): 0 - Related Data Home Medications Medication Instructions Recorded Confirmed Last Taken Aspirin [Aspirin BABY CHEW TAB] 81 mg PO DAILY 05/01/15 12/05/18 05/12/15 Lisinopril [Zestril] 40 mg PO DAILY 12/05/18 12/05/18 Unknown Sertraline [Zoloft] 50 mg PO DAILY 12/05/18 12/05/18 Unknown Previous Rx's Medication Instructions Recorded Last Taken Type Metoprolol [Lopressor TAB] 100 mg PO BID #120 tablet 12/14/18 Unknown Rx Allergies Allergy/AdvReac Type Severity Reaction Status Date / Time No Known Allergies Allergy Unverified 05/13/15 15:03 Heart Score - HEART Score History: Slightly suspicious EKG: Non-specific Age: > 65 Risk factors: > 3 risk factors or hx of atherosclerotic disease Troponin: < normal limit HEART Score: 5 ED Review of Systems ROS: Stated complaint: CHEST PAIN/SENT BY DR BROWN Other details as noted in HPI Comment: All other systems reviewed and negative ED Past Medical Hx - Past Medical History Previous Medical History?: Yes Hx Hypertension: Yes Hx CVA: Yes ("MINI STROKE") Hx Congestive Heart Failure: Yes Hx Deep Vein Thrombosis: Yes (Right leg 05/2015) Hx Psychiatric Treatment: Yes (DEPRESSION) Additional medical history: "KIDNEY PROBLEMS" - Surgical History Past Surgical History?: Yes Additional Surgical History: LEFT HIP REPLACEMENT, Right BKA - Social History Smoking Status: Current Every Day Smoker Substance Use Type: None - Medications Home Medications: Home Medications Medication Instructions Recorded Confirmed Last Taken Type Aspirin [Aspirin BABY CHEW TAB] 81 mg PO DAILY 05/01/15 12/05/18 05/12/15 History Lisinopril [Zestril] 40 mg PO DAILY 12/05/18 12/05/18 Unknown History Sertraline [Zoloft] 50 mg PO DAILY 12/05/18 12/05/18 Unknown History Metoprolol [Lopressor TAB] 100 mg PO BID #120 tablet 12/14/18 Unknown Rx ED Physical Exam - General Limitations: No Limitations - Other Other exam information: General: No limitations, patient is alert in no acute distress Head exam: Atraumatic, normocephalic Eyes exam: Normal appearance, pupils equal reactive to light, extraocular movements intact ENT: Moist mucous membrane, normal oropharynx Neck exam: Normal inspection, full range of motion, no meningismus nontender Respiratory exam: Clear to auscultation bilateral, no wheezes, rales, crackles Cardiovascular: Normal rate and rhythms Abdomen: Soft, nondistended, and nontender, with normal bowel sounds, no rebound, or guarding Extremity: Full range of motion, right AKA Back: Normal Inspection, full range of motion, no tenderness Neurologic: Alert, oriented x3, cranial nerves intact, no motor or sensory deficit Psychiatric: normal affect, normal mood Skin: Warm, dry, intact ED Course Vital Signs 01/08/19 16:35 Temperature 98.3 F Pulse Rate 58 L Respiratory 18 Rate Blood Pressure 106/76 O2 Sat by Pulse 97 Oximetry - Consultations Consultation #1: 01/09/19 01:02 case d/w Dr almauger, requests bridge ordered PRASHANT score - Prashant Score Age > 65: (1) Yes Aspirin use within the Past 7 Days: (1) Yes 3 or more CAD Risk Factors: (1) Yes 2 or more Angina events in past 24 hrs: (0) No Known CAD with more than 50% Stenosis: (0) No Elevated Cardiac Markers: (0) No ST Deviation Greater than 0.5mm: (0) No PRASHANT Score: 3 ED Medical Decision Making - Lab Data Result diagrams: 01/08/19 16:44 01/08/19 16:44 Lab Results 01/08/19 01/08/19 01/08/19 Range/Units 16:44 16:44 18:54 WBC 8.9 (4.5-11.0) K/mm3 RBC 4.25 (3.65-5.03) M/mm3 Hgb 11.6 L (11.8-15.2) gm/dl Hct 36.3 (35.5-45.6) % MCV 85 (84-94) fl MCH 27 L (28-32) pg MCHC 32 (32-34) % RDW 16.9 H (13.2-15.2) % Plt Count 235 (140-440) K/mm3 Lymph % (Auto) 13.7 (13.4-35.0) % Pender % (Auto) 13.4 H (0.0-7.3) % Eos % (Auto) 1.6 (0.0-4.3) % Baso % (Auto) 0.5 (0.0-1.8) % Lymph # 1.2 (1.2-5.4) K/mm3 [place] # 1.2 H (0.0-0.8) K/mm3 Eos # 0.1 (0.0-0.4) K/mm3 Baso # 0.0 (0.0-0.1) K/mm3 Seg Neutrophils % 70.8 H (40.0-70.0) % Seg Neutrophils # 6.3 (1.8-7.7) K/mm3 PT (12.2-14.9) Sec. INR (0.87-1.13) APTT (24.2-36.6) Sec. D-Dimer (0-234) ng/mlDDU Sodium 142 (137-145) mmol/L Potassium 4.1 (3.6-5.0) mmol/L Chloride 105.9 (98-107) mmol/L Carbon Dioxide 25 (22-30) mmol/L Anion Gap 15 mmol/L BUN 21 H (9-20) mg/dL Creatinine 1.7 H (0.8-1.5) mg/dL Estimated GFR 48 ml/min BUN/Creatinine Ratio 12 % Glucose 83 (75-100) mg/dL Calcium 8.9 (8.4-10.2) mg/dL Troponin T 0.015 (0.00-0.029) ng/mL NT-Pro-B Natriuret Pep 502.5 (0-900) pg/mL 01/08/19 01/08/19 01/08/19 Range/Units 19:29 20:55 22:42 WBC (4.5-11.0) K/mm3 RBC (3.65-5.03) M/mm3 Hgb (11.8-15.2) gm/dl Hct (35.5-45.6) % MCV (84-94) fl MCH (28-32) pg MCHC (32-34) % RDW (13.2-15.2) % Plt Count (140-440) K/mm3 Lymph % (Auto) (13.4-35.0) % Pender % (Auto) (0.0-7.3) % Eos % (Auto) (0.0-4.3) % Baso % (Auto) (0.0-1.8) % Lymph # (1.2-5.4) K/mm3 Pender # (0.0-0.8) K/mm3 Eos # (0.0-0.4) K/mm3 Baso # (0.0-0.1) K/mm3 Seg Neutrophils % (40.0-70.0) % Seg Neutrophils # (1.8-7.7) K/mm3 PT 13.8 (12.2-14.9) Sec. INR 1.00 (0.87-1.13) APTT 31.1 (24.2-36.6) Sec. D-Dimer 1114.99 H (0-234) ng/mlDDU Sodium (137-145) mmol/L Potassium (3.6-5.0) mmol/L Chloride (98-107) mmol/L Carbon Dioxide (22-30) mmol/L Anion Gap mmol/L BUN (9-20) mg/dL Creatinine (0.8-1.5) mg/dL Estimated GFR ml/min BUN/Creatinine Ratio % Glucose (75-100) mg/dL Calcium (8.4-10.2) mg/dL Troponin T < 0.010 < 0.010 (0.00-0.029) ng/mL NT-Pro-B Natriuret Pep (0-900) pg/mL - EKG Data -: EKG Interpreted by Me EKG shows normal: sinus rhythm, axis (qrs -21), QRS complexes (qrsd 97), ST-T waves (no stemi/t inv) Rate: normal, bradycardia (55) - EKG Data When compared to previous EKG there are: no significant change - Radiology Data Radiology results: report reviewed PROCEDURE: XR CHEST 1V AP TECHNIQUE: Frontal portable view of the chest HISTORY: Chest Pain COMPARISONS: Chest x-ray dated December 05, 2018. The report of that study is not available for review at the time of this dictation. FINDINGS: There is bilateral hypoinflation with crowding of the bronchovascular structures as was demonstrated on the previous study. There is no definite evidence of focal infiltrate, pneumothorax or pleural effusion. The cardiac silhouette is enlarged. The thoracic aorta is tortuous. The bony structures are unremarkable. IMPRESSION: 1. Hypoinflation. 2. No definite evidence of an acute pulmonary process. If further imaging is required, CT chest may be helpful. 3. Enlarged cardiac silhouette. PROCEDURE: NM LUNG SCAN PERF/VENT TECHNIQUE: 4.4 mCi Tc-99m MAA was injected IV for pulmonary perfusion imaging in multiple projections. 20.1 mCi 133 xenon was inhaled for pulmonary ventilation imaging in multiple projections. Injection site: . HISTORY: sob, cp, elevated ddimer COMPARISONS: None . FINDINGS: Perfusion: No defects . Ventilation: No defects . IMPRESSION: Normal Examination . - Medical Decision Making + CP, ed workup unremarkable (neg trop x 3, elevated ddimer but neg vq) plan to admit to Dr Almaguer for further card workup - Differential Diagnosis OR, PE, atypical chest pain, anxiety, arrhythmia Critical Care Time: No Critical care attestation.: If time is entered above; I have spent that time in minutes in the direct care of this critically ill patient, excluding procedure time. ED Disposition Clinical Impression: Chest pain, Chronic renal insufficiency, Status post above knee amputation of right lower extremity, Dementia, Suprapubic catheter Disposition: -09 OP ADMIT IP TO THIS HOSP Is pt being admited?: Yes Condition: Stable Time of Disposition: 01:03 (DR Almaguer)
[2019-01-08 21:26] LABS: Partial Thromboplastin Time 31.1 Sec. (24.2-36.6)
--- NOTE | 2019-01-08 23:27 | Nuclear Medicine Report ---
PROCEDURE: NM LUNG SCAN PERF/VENT TECHNIQUE: 4.4 mCi Tc-99m MAA was injected IV for pulmonary perfusion imaging in multiple projection s. 20.1 mCi 133 xenon was inhaled for pulmonary ventilation imaging in multiple projections. Injectio n site: . HISTORY: sob, cp, elevated ddimer COMPARISONS: None . FINDINGS: Perfusion: No defects . Ventilation: No defects . IMPRESSION: Normal Examination . This document is electronically signed by Rosalio Bundy MD., January 08 2019 11:25:15 PM ET
--- NOTE | 2019-01-09 08:29 | History and Physical Report ---
History of Present Illness Date of examination: 01/09/19 Date of admission: 01/09/19 01:01 Chief complaint: chest pain History of present illness: Patient is a 73-year-old gentleman who is wheelchair bound with a history of CHF, SVT, previous CVA, DVT now off anticvoagulation, right AKA, hypertension, chronic renal failure, suprapubic catheter for outflow obstruction from urinary bladder stone obstruction and depression, who was said to be having rapid heart rate by the home health nurse aid who called my office 01/08/19 informing me of the patient's status. The caregiver was advised to bring the patient into the office. Patient denied any shortness of breath or diaphoresis. EKG in the office showed sinus tachycardia with inverted T-waves. He in addition complained of chest pain for which admission was recommended was recommended through the Ed for chest pain. In the Ed, D-Dimer was 1114.99. BUN was elevate at 21 with Cr of 1.7. Troponin T levels x 2 were normal. BNP was 502.5. Patient was admitted for further evaluation. Past History Past Medical History: DVT, heart failure, hypertension, stroke Past Surgical History: Other (right AKA, right hip replacement) Social history: smoking Family history: hypertension Medications and Allergies Allergies Allergy/AdvReac Type Severity Reaction Status Date / Time No Known Allergies Allergy Unverified 05/13/15 15:03 Home Medications Medication Instructions Recorded Confirmed Last Taken Type Aspirin [Aspirin BABY CHEW TAB] 81 mg PO DAILY 05/01/15 01/09/19 05/12/15 History Lisinopril [Zestril] 40 mg PO DAILY 12/05/18 01/09/19 Unknown History Sertraline [Zoloft] 50 mg PO DAILY 12/05/18 01/09/19 Unknown History Metoprolol [Lopressor TAB] 100 mg PO BID #120 tablet 12/14/18 01/09/19 Unknown Rx Active Meds: Review of systems Constitutional: Well Nourished and Well developed. Head: NC/ AT Eyes: Denies any visual impairments. No discharge from the eyes Nose: Denies any rhinorrhea or epistaxis Throats: Denies any post nasal drainage. Ears: Denies any hearing deficits Cardiovascular system: Chest pain, no shortness of breath, orthopnea, paroxysmal nocturnal dyspnea, or palpitation. Respiratory system: Denies any cough, difficulty breathing, wheezing, pleuritic chest pain, Gastrointestinal system: Denies any abdominal pain, nausea vomiting, hematemesis or melena. Neurological system: Denies any headache, slurred speech, facial droop, lateralizing weakness Genitalia system: Denies any dysuria, urinary frequency or urgency, urethral discharge Skin: No rashes, hyperpigmented spots. Hematological: Denies any cervical tenderness hemorrhages or petechia. Immunological: Denies any multiple septic spots, Lymphatic: Denies any generalized lymphadenopathy. Endocrine: Denies any polyuria, polydipsia, polyphagia. No heat or cold intolerance. Musculoskeletal system: No joint pain or swelling. Psych: No visual, tactile, auditory or hallucination Exam - Physical Exam Narrative exam: Constitutional: Well-nourished well-developed. In no distress Head: Normocephalic atraumatic Eyes: Pupils are equal round and reactive to light Nose: No enlarged turbinates, no septal deviation. Mouth: Moist mucous membranes. Neck: Supple no thyromegaly. No bruit. No JVD Heart: Regular rate and rhythm, S1-S2 normal. No rubs murmurs or gallop Lungs: Clear to auscultation bilaterally. no rales or rhonchi Abdomen: Soft, nontender. Bowel sound are present. Extremities: Right AKA. No edema of the left leg Neuro: Alert oriented Oriented x3. No focal sensory or motor deficit. Skin: No rashes or hyperpigmented spots Musculoskeletal system: No joint pain or swelling Hematological: No petechia or subcutanous hemorrhages. Immunological: No multiple septic spots on the skin Lymphatic: No generalized lymphadenopathy Psychiatry: Euthymic. Calm. - Constitutional Vitals: Temp Pulse Resp BP Pulse Ox 98.0 F 82 18 131/91 96 01/09/19 04:59 01/09/19 04:59 01/09/19 04:59 01/09/19 04:59 01/09/19 04:59 Results - Labs CBC & Chem 7: 01/09/19 09:21 01/09/19 09:21 Labs: Abnormal lab results 01/08/19 01/08/19 01/08/19 Range/Units 16:44 16:44 20:55 Hgb 11.6 L (11.8-15.2) gm/dl MCH 27 L (28-32) pg RDW 16.9 H (13.2-15.2) % [place] % (Auto) 13.4 H (0.0-7.3) % [place] # 1.2 H (0.0-0.8) K/mm3 Seg Neutrophils % 70.8 H (40.0-70.0) % D-Dimer 1114.99 H (0-234) ng/mlDDU BUN 21 H (9-20) mg/dL Creatinine 1.7 H (0.8-1.5) mg/dL Assessment and Plan Patient is a 73-year-old gentleman who is wheelchair bound with a history of CHF, SVT, previous CVA, DVT now off anticvoagulation, right AKA, hypertension, chronic renal failure, suprapubic catheter for outflow obstruction from urinary bladder stone obstruction and depression, who was said to be having rapid heart rate by the home health nurse aid who called my office 01/08/19 informing me of the patient's status. The caregiver was advised to bring the patient into the office. Patient denied any shortness of breath or diaphoresis. EKG in the office showed sinus tachycardia with inverted T-waves. He in addition complained of chest pain for which admission was recommended was recommended through the Ed as pt had complained of chest pain. In the Ed, D-Dimer was 1114.99. BUN was elevate at 21 with Cr of 1.7. Troponin T levels x 2 were normal. BNP was 502.5. - Chest pain Cardiac enzymes 2 were negative EKG shows sinus bradycardia at 55/min now in the 80s Commence oxygen, aspirin, morphine, nitroglycerin Stress test Obtain an Echocardiogram - Elevated d-dimer We will obtain CT angiogram of the chest Commence heparing drip pending CTA report - Acute renal insufficiency Judicious IV hydration given a history of CHF - Status post suprapubic catheter Suprapubic catheter care - Status post right AKA - Dementia: Stable Monitor - History of DVT Anticoagulation heparin and GI with Pepcid - Time spent during this admission: > 35 mins Code status Full code
[2019-01-09 09:38] LABS: Basophils # (Auto) 0.1 K/mm3 (0.0-0.1); Eosinophils # (Auto) 0.2 K/mm3 (0.0-0.4); Eosinophils % (Auto) 2.8 % (0.0-4.3); Hemoglobin 10.8 gm/dl (11.8-15.2); Lymphocytes # (Auto) 1.2 K/mm3 (1.2-5.4); Lymphocytes % (Auto) 14.6 % (13.4-35.0); Mean Corpuscular HGB Conc 32 % (32-34); Mean Corpuscular Volume 85 fl (84-94); Monocytes # (Auto) 1.1 K/mm3 (0.0-0.8); Monocytes % (Auto) 12.7 % (0.0-7.3); Platelet Count 218 K/mm3 (140-440); Red Cell Distribution Width 16.2 % (13.2-15.2)
[2019-01-09 09:50] LABS: INR 1.03 (0.87-1.13)
[2019-01-09 09:51] LABS: Partial Thromboplastin Time 29.4 Sec. (24.2-36.6)
[2019-01-09 10:02] LABS: Calcium 8.2 mg/dL (8.4-10.2)
[2019-01-09] MEDS ORDERED: MORPHINE IV PRN (11:00)
--- NOTE | 2019-01-09 11:17 | Consultation ---
History of Present Illness Consult date: 01/09/19 Requesting physician: VAL WILLAMS Consult reason: chest pain, tachycardia History of present illness: The pt is a 73-year-old male with a history of paroxysmal SVT, previous CVA, HTN, DVT, hypertension, right AKA, CKD, dementia, bladder outflow obstruction s/p suprapubic catheter placement. He has been seen by our practice on prior hospitalization. He presented with complaints of "shortness of breath". He is a rather poor historian due to dementia and does not provide any additional details. Per the chart, pt presented to ED with c/o chest pain and rapid heartbeat noted yesterday morning. Pt's home health nurse noted tachycardia and called Dr. Willams's office on 01/08/19 and was advised to bring the patient into the office. EKG in the office showed sinus tachycardia with inverted T-waves. He in addition complained of chest pain and was referred to ED. Review of telemetry reveals paroxysmal SVT. Echo done 12/06/2018 showed EF 55-60%, impaired relaxation, trace MR, mild TR, RVSP 35mmHg. Past History Past Medical History: DVT, hypertension, stroke, other (svt) Past Surgical History: Other (right AKA, right hip replacement) Social history: smoking Family history: hypertension Medications and Allergies Allergies Allergy/AdvReac Type Severity Reaction Status Date / Time No Known Allergies Allergy Unverified 05/13/15 15:03 Home Medications Medication Instructions Recorded Confirmed Last Taken Type Aspirin [Aspirin BABY CHEW TAB] 81 mg PO DAILY 05/01/15 01/09/19 05/12/15 History Lisinopril [Zestril] 40 mg PO DAILY 12/05/18 01/09/19 Unknown History Sertraline [Zoloft] 50 mg PO DAILY 12/05/18 01/09/19 Unknown History Metoprolol [Lopressor TAB] 100 mg PO BID #120 tablet 12/14/18 01/09/19 Unknown Rx Active Meds: Active Medications Aspirin (Ecotrin) 325 mg PO QDAY BERONICA Heparin Sodium (Porcine) (Heparin 10,000 Units/10 Ml) 3,300 unit 40 unit/kg (3300 unit) IV ONCE ONE Stop: 01/09/19 08:56 Heparin Sodium/Sodium Chloride (Heparin/ 0.45% Nacl-25,000 Unit/500 Ml) 25,000 unit in 500 mls @ 24 mls/hr IV TITR BERONICA; Protocol Dextrose/Sodium Chloride (D5/0.45ns) 1,000 mls @ 42 mls/hr IV DIRECT BERONICA Lisinopril (Zestril) 40 mg PO DAILY BERONICA Metoprolol Tartrate (Lopressor) 100 mg PO BID BERONICA Morphine Sulfate (Morphine) 2 mg IV Q5MIN PRN PRN Reason: Chest Pain unrelieved by NTG Nitroglycerin (Nitro Dur) 0.1 mg TD QDAY@0600 BERONICA Sertraline HCl (Zoloft) 50 mg PO DAILY [facility] Sodium Chloride (Sodium Chloride Flush Syringe 10 Ml) 10 ml IV PRN PRN PRN Reason: LINE FLUSH Review of Systems All systems: negative Cardiovascular: shortness of breath Respiratory: shortness of breath Physical Examination Vital Signs Temp Pulse Resp BP Pulse Ox 98.3 F 58 L 18 106/76 97 01/08/19 16:35 01/08/19 16:35 01/08/19 16:35 01/08/19 16:35 01/08/19 16:35 General appearance: no acute distress HEENT: Positive: PERRL, Normocephaly, Mucus Membranes Moist Neck: Positive: neck supple, trachea midline Cardiac: Positive: Reg Rate and Rhythm, S1/S2 Lungs: Positive: Decreased Breath Sounds Neuro: Positive: Grossly Intact Abdomen: Negative: Tender Extremities: Present: Other (right AKA) Results 01/09/19 09:21 01/09/19 09:21 Coagulation 01/08/19 01/09/19 Range/Units 20:55 09:21 PT 13.8 14.1 (12.2-14.9) Sec. INR 1.00 1.03 (0.87-1.13) APTT 31.1 29.4 (24.2-36.6) Sec. CBC 01/08/19 01/09/19 Range/Units 16:44 09:21 WBC 8.9 8.3 (4.5-11.0) K/mm3 RBC 4.25 4.00 (3.65-5.03) M/mm3 Hgb 11.6 L 10.8 L (11.8-15.2) gm/dl Hct 36.3 34.0 L (35.5-45.6) % Plt Count 235 218 (140-440) K/mm3 Lymph # 1.2 1.2 (1.2-5.4) K/mm3 [place] # 1.2 H 1.1 H (0.0-0.8) K/mm3 Eos # 0.1 0.2 (0.0-0.4) K/mm3 Baso # 0.0 0.1 (0.0-0.1) K/mm3 Comprehensive Metabolic Panel 01/08/19 01/09/19 Range/Units 16:44 09:21 Sodium 142 142 (137-145) mmol/L Potassium 4.1 4.5 (3.6-5.0) mmol/L Chloride 105.9 110.2 H (98-107) mmol/L Carbon Dioxide 25 22 (22-30) mmol/L BUN 21 H 20 (9-20) mg/dL Creatinine 1.7 H 1.6 H (0.8-1.5) mg/dL Glucose 83 98 (75-100) mg/dL Calcium 8.9 8.2 L (8.4-10.2) mg/dL - Imaging and Cardiology Echo: report reviewed (12/06/2018 showed EF 55-60%, impaired relaxation, trace MR, mild TR, RVSP 35mmHg. ) EKG: report reviewed, image reviewed EKG interpretations - Telemetry EKG Rhythm: Sinus Rhythm - EKG Sinus rhythms and dysrhythmias: sinus rhythm Assessment and Plan DDimer elevated - V/Q scan normal. AMI ruled out. Pt with no complaints of chest pain at this time. No current cardiac in indication for continuation of heparin gtt. Review of telemetry reveals paroxysmal SVT. Cont lopressor and initiate cardizem . The patient has been seen in conjunction with Dr. Salmon who agrees with the assessment and plan of care. - Patient Problems (1) Paroxysmal SVT (supraventricular tachycardia) Current Visit: Yes Status: Chronic (2) Chest pain Current Visit: Yes Status: Acute (3) Dyspnea Current Visit: Yes Status: Acute (4) Chronic renal insufficiency Current Visit: Yes Status: Chronic (5) Bladder outlet obstruction Current Visit: Yes Status: Chronic (6) Suprapubic catheter Current Visit: Yes Status: Chronic (7) Dementia Current Visit: Yes Status: Chronic (8) Status post above knee amputation of right lower extremity Current Visit: Yes Status: Chronic (9) HTN (hypertension) Current Visit: Yes Status: Chronic Qualifiers: Hypertension type: essential hypertension Qualified Code(s): I10 - Essential (primary) hypertension (10) History of CVA (cerebrovascular accident) Current Visit: Yes Status: Chronic (11) History of DVT (deep vein thrombosis) Current Visit: Yes Status: Chronic
[2019-01-09] MEDS ORDERED: SODIUM CHLORIDE FLUSH SYRINGE 10 ML IV PRN (11:30)
[2019-01-09] MEDS: ECOTRIN PO SCH (12:46)
[2019-01-09] MEDS: LOPRESSOR PO SCH ×2 (12:46→21:53)
[2019-01-09] MEDS: ZOLOFT PO SCH (12:47)
[2019-01-09] MEDS: CARDIZEM PO SCH ×2 (12:47→17:37)
[2019-01-09] MEDS: ZESTRIL PO SCH (12:47)
[2019-01-09] MEDS: HEPARIN 10,000 UNITS/10 ML IV ONE ×2 (12:49→14:05)
--- NOTE | 2019-01-09 13:47 | Cat Scan Report ---
CTA CHEST: HISTORY: Elevated D. dimer, chest pain, shortness of breath. COMPARISON: Perfusion ventilation scan performed 01/18/19. TECHNIQUE: Helical CT in 1.25mm intervals following IV contrast. Pulmonary embolus protocol. Sagittal and coronal reformatted images. Rotational MIP images. FINDINGS: Contrast bolus is satisfactory. A small nonocclusive pulmonary artery filling defect is identified in a second/third order branch of the left pulmonary artery leading to the left lower lobe. This is best demonstrated on images 119-124, series 3. No large occlusive pulmonary embolus is identified. Thyroid gland: Normal. Tracheobronchial tree: Normal. Esophagus: Normal. Heart: Normal. Pericardium: Normal. Mediastinum: Normal. Lung Suarez: Mild emphysematous changes are suspected in the upper lobes. Lungs are clear otherwise. No evidence for mass or pneumonia. Pleural Spaces: Normal. Musculoskeletal: Intact. Mild thoracic spondylosis. IMPRESSION: A small nonocclusive pulmonary arterial defect is identified in a segmental artery leading to the left lower lobe. Mild emphysematous changes. These findings were relayed to Mayra, the patient's RN, on the fourth floor at [address] Pinedo was paged.
[2019-01-09] MEDS ORDERED: HEPARIN SUB-Q SCH (14:00)
[2019-01-09] MEDS: HEPARIN/ 0.45% NACL-25,000 UNIT/500 ML 25,000 UNIT/500 ML BAG IV SCH (14:06)
[2019-01-09] MEDS: NITRO DUR TD SCH (14:35)
--- NOTE | 2019-01-09 19:34 | Vascular Lab Report ---
PROCEDURE: VL VENOUS DUPLEX LE BILAT TECHNIQUE: Duplex Doppler sonography of the BILATERAL lower extremity veins. Aguilar scale imaging with and without compression, spectral waveform analysis with and without augmentation, and color flow Do ppler were employed. HISTORY: elevated ddimer COMPARISONS: None FINDINGS: There is normal compressibility and blood flow. No filling defects. Normal augmentation. Incidental note is made of a dilated left popliteal artery with filling defect and lack of blood flow , compatible with occlusion. IMPRESSION: No evidence of deep venous thrombosis Occluded left popliteal artery is incidentally noted This document is electronically signed by Heather Camejo MD., January 09 2019 07:32:50 PM ET
--- NOTE | 2019-01-09 20:33 | Event Note ---
Date: 01/09/19 CTA showed none occlusive PE. Pt already on heparin gtt. Doppler left Lower extremity showed incidental left finding of occluded left polliteal art. Consulted and Spoke with Vascular/intervention Surgery./ Advised continuing with heparin drip
[2019-01-10] MEDS: CARDIZEM PO SCH ×4 (00:15→18:06)
[2019-01-10] MEDS: NITRO DUR TD SCH (05:59)
[2019-01-10] MEDS: ZESTRIL PO SCH (09:22)
[2019-01-10] MEDS: ECOTRIN PO SCH (09:22)
[2019-01-10] MEDS: LOPRESSOR PO SCH ×2 (09:23→22:12)
[2019-01-10] MEDS: ZOLOFT PO SCH (09:23)
--- NOTE | 2019-01-10 09:25 | Progress Note ---
Assessment and Plan Patient is a 73-year-old gentleman who is wheelchair bound with a history of CHF, SVT, previous CVA, DVT now off anticvoagulation, right AKA, hypertension, chronic renal failure, suprapubic catheter for outflow obstruction from urinary bladder stone obstruction and depression, who was said to be having rapid heart rate by the home health nurse aid who called my office 01/08/19 informing me of the patient's status. The caregiver was advised to bring the patient into the office. Patient denied any shortness of breath or diaphoresis. EKG in the office showed sinus tachycardia with inverted T-waves. He in addition complained of chest pain for which admission was recommended was recommended through the Ed as pt had complained of chest pain. In the Ed, D-Dimer was 1114.99. BUN was elevate at 21 with Cr of 1.7. Troponin T levels x 2 were normal. BNP was 502.5. 01/09/19 CTA shoowed nooclusve PE 01/09/19n Arrterial doppler showed popliteal artery occlusion - Chest pain Cardiac enzymes 2 were negative EKG shows sinus bradycardia at 55/min now in the 80s Commence oxygen, aspirin, morphine, nitroglycerin Stress test Obtain an Echocardiogram - Acute pulmonary embolism Continue with Heparin gtt - PVD left left From arterial doppler - 01/09/19 intervention/Vascular surgeon consulted - Acute renal insufficiency - imporving Judicious IV hydration given a history of CHF - Status post suprapubic catheter Suprapubic catheter care - Status post right AKA - Dementia: Stable Monitor - History of DVT Anticoagulation heparin and GI with Pepcid Called pt's again [phone] and discussed finding of Pulmonary embolism and PVD left leg with her and plan of care. Expressed understanding and apprciated the update - Time spent during this admission: > 40 mins Code status Full code Subjective Date of service: 01/10/19 Principal diagnosis: chest pain, PE, acute renal failure, dementia, PVD Interval history: Patient seen and examined. No no new complaint. Denies any shortness of breath Objective - Exam Narrative Exam: Constitutional: Well-nourished well-developed. In no distress Head: Normocephalic atraumatic Eyes: Pupils are equal round and reactive to light Nose: No enlarged turbinates, no septal deviation. Mouth: Moist mucous membranes. Neck: Supple no thyromegaly. No bruit. No JVD Heart: Regular rate and rhythm, S1-S2 normal. No rubs murmurs or gallop Lungs: Clear to auscultation bilaterally. no rales or rhonchi Abdomen: Soft, nontender. Bowel sound are present. Extremities: Right AKA. No edema or cyanosis of the left leg. Neuro: Alert oriented Oriented x1. No focal sensory or motor deficit. Skin: No rashes or hyperpigmented spots Musculoskeletal system: No joint pain or swelling Hematological: No petechia or subcutanous hemorrhages. Immunological: No multiple septic spots on the skin Lymphatic: No generalized lymphadenopathy Psychiatry: Euthymic. Calm. - Constitutional Vitals: Vital Signs - 12hr 01/09/19 01/09/19 01/10/19 21:53 22:00 00:07 Temperature 98.6 F Pulse Rate 52 L 54 L Respiratory 18 Rate Respiratory 18 Rate [Left Leg] Blood Pressure 136/90 142/78 O2 Sat by Pulse 98 Oximetry 01/10/19 01/10/19 01/10/19 00:15 05:29 05:59 Temperature 98.3 F Pulse Rate 54 L 57 L 57 L Respiratory 18 Rate Respiratory Rate [Left Leg] Blood Pressure 142/78 133/84 133/84 O2 Sat by Pulse 96 Oximetry 01/10/19 07:32 Temperature 98.7 F Pulse Rate 68 Respiratory 18 Rate Respiratory Rate [Left Leg] Blood Pressure 143/81 O2 Sat by Pulse 98 Oximetry - Labs CBC & Chem 7: 01/09/19 09:21 01/09/19 09:21 Labs: Abnormal lab results 01/09/19 01/09/19 01/10/19 Range/Units 09:21 09:21 04:22 Hgb 10.8 L (11.8-15.2) gm/dl Hct 34.0 L (35.5-45.6) % MCH 27 L (28-32) pg RDW 16.2 H (13.2-15.2) % [place] % (Auto) 12.7 H (0.0-7.3) % [place] # 1.1 H (0.0-0.8) K/mm3 Heparin Anti-Xa Level 0.84 H (0.3-0.7) U.I./ml Chloride 110.2 H (98-107) mmol/L Creatinine 1.6 H (0.8-1.5) mg/dL Calcium 8.2 L (8.4-10.2) mg/dL
--- NOTE | 2019-01-10 11:21 | Progress Note ---
Assessment and Plan Cont present cardiac management. CTA showed nonocclusive PE. Arterial doppler showed popliteal artery occlusion. Further eval/management per primary. The patient has been seen in conjunction with Dr. Salmon who agrees with the assessment and plan of care. - Patient Problems (1) Paroxysmal SVT (supraventricular tachycardia) Current Visit: Yes Status: Chronic (2) Chest pain Current Visit: Yes Status: Acute (3) Dyspnea Current Visit: Yes Status: Acute (4) Chronic renal insufficiency Current Visit: Yes Status: Chronic (5) Bladder outlet obstruction Current Visit: Yes Status: Chronic (6) Suprapubic catheter Current Visit: Yes Status: Chronic (7) Dementia Current Visit: Yes Status: Chronic (8) Status post above knee amputation of right lower extremity Current Visit: Yes Status: Chronic (9) HTN (hypertension) Current Visit: Yes Status: Chronic Qualifiers: Hypertension type: essential hypertension Qualified Code(s): I10 - Essential (primary) hypertension (10) History of CVA (cerebrovascular accident) Current Visit: Yes Status: Chronic (11) History of DVT (deep vein thrombosis) Current Visit: Yes Status: Chronic Subjective Date of service: 01/10/19 Principal diagnosis: chest pain, PE, acute renal failure, dementia, PVD Interval history: pt resting in bed, no current complaints. tele reviewed - in SR overnight. Objective Last Vital Signs Temp 98.7 F 01/10/19 07:32 Pulse 65 01/10/19 10:00 Resp 20 01/10/19 10:00 BP 143/81 01/10/19 09:23 Pulse Ox 98 01/10/19 07:32 - Physical Examination General: No Apparent Distress HEENT: Positive: PERRL, Normocephaly, Mucus Membranes Moist Neck: Positive: neck supple, trachea midline Cardiac: Positive: Reg Rate and Rhythm, S1/S2 Lungs: Positive: Decreased Breath Sounds Neuro: Positive: Grossly Intact Abdomen: Negative: Tender Extremities: Present: Other (right AKA) - Imaging and Cardiology EKG: report reviewed, image reviewed Echo: report reviewed (12/06/2018 showed EF 55-60%, impaired relaxation, trace MR, mild TR, RVSP 35mmHg. ) - Telemetry EKG Rhythm: Sinus Rhythm - EKG Sinus rhythms and dysrhythmias: sinus rhythm
[2019-01-10] MEDS: D5/0.45NS 1,000 ML IV SCH (12:00)
--- NOTE | 2019-01-10 13:16 | Vascular Lab Report ---
PROCEDURE: VL ARTERIAL DUPLEX LE LT TECHNIQUE: Duplex Doppler imaging of the arteries of the left lower extremity HISTORY: popliteal occlusion COMPARISONS: None. FINDINGS: There is calcified heterogeneous plaque throughout the arteries of the left lower extremity. There is absence of flow in the mid to distal left popliteal artery. There is flow in the distal left anterior tibial artery, with reconstitution at the level of the ankl e. There is a normal triphasic waveform of the left common femoral artery and. The proximal superficial femoral artery. There is a biphasic waveform of the distal superficial femoral artery, proximal popli teal artery and proximal left intrauterine artery. Peak systolic velocities (cm/sec) are as follows: Left common femoral artery: 134 Left superficial femoral artery: 97 Left profunda branch: 127 Left popliteal artery: 24 Left anterior tibial artery: 23 Left posterior tibial artery: 19 IMPRESSION: 1. Occlusion of the mid to distal popliteal artery. 2. Occlusion of the distal left anterior tibial artery with reconstitution at the level of the ankle. This document is electronically signed by Cristiana Lira MD., January 10 2019 01:13:40 PM ET
[2019-01-10] MEDS: HEPARIN/ 0.45% NACL-25,000 UNIT/500 ML 25,000 UNIT/500 ML BAG IV SCH (14:54)
--- NOTE | 2019-01-10 15:11 | Consultation ---
History of Present Illness - Reason for Consult Consult date: 01/10/19 Left Leg PVD Requesting physician: VAL WILLAMS - History of Present Illness The patient is a 73 year old male with a history of PVD who underwent a right AKA in 2016 for right foot gangrene. He was admitted to the hospital for management of SVT with complaints of chest pain. He was found to have a PE on CTA of his chest. During the duplex scna for evaluation of a DVT, he eas incidentally found to have an occluded Left popliteal artery. The patient denies and pain, acute or chronic. His states that he uses his left left to assist with moving around the house in his wheelchair and to pivot. He does not ambulate so I am not able to solicit a history of claudication. He has no o ther complaints at this time. Past History Past Medical History: arrhythmia, diabetes, DVT, heart failure, hypertension, PVD, stroke, other (bladder stones) Past Surgical History: total hip replacement (Left), Other (right AKA, Lithotr ipsy of bladder stones, suprapubic catheter) Social history: , lives with family, smoking Family history: hypertension Medications and Allergies Allergies Allergy/AdvReac Type Severity Reaction Status Date / Time No Known Allergies Allergy Unverified 05/13/15 15:03 Home Medications Medication Instructions Recorded Confirmed Last Taken Type Aspirin [Aspirin BABY CHEW TAB] 81 mg PO DAILY 05/01/15 01/09/19 05/12/15 History Lisinopril [Zestril] 40 mg PO DAILY 12/05/18 01/09/19 Unknown History Sertraline [Zoloft] 50 mg PO DAILY 12/05/18 01/09/19 Unknown History Metoprolol [Lopressor TAB] 100 mg PO BID #120 tablet 12/14/18 01/09/19 Unknown Rx Active Meds: Active Medications Aspirin (Ecotrin) 325 mg PO QDAY [facility] Last Admin: 01/10/19 09:22 Dose: 325 mg Documented by: Diltiazem HCl (Cardizem) 30 mg PO Q6HR [facility] Last Admin: 01/10/19 11:58 Dose: 30 mg Documented by: Heparin Sodium/Sodium Chloride (Heparin/ 0.45% Nacl-25,000 Unit/500 Ml) 25,000 unit in 500 mls @ 24 mls/hr IV TITR BERONICA; Protocol Last Admin: 01/10/19 14:54 Dose: 800 units/hr, 16 mls/hr Documented by: Dextrose/Sodium Chloride (D5/0.45ns) 1,000 mls @ 42 mls/hr IV DIRECT [facility] Last Admin: 01/10/19 12:00 Dose: 42 mls/hr Documented by: Lisinopril (Zestril) 40 mg PO DAILY [facility] Last Admin: 01/10/19 09:22 Dose: 40 mg Documented by: Metoprolol Tartrate (Lopressor) 100 mg PO BID [facility] Last Admin: 01/10/19 09:23 Dose: 100 mg Documented by: Morphine Sulfate (Morphine) 2 mg IV Q5MIN PRN PRN Reason: Chest Pain unrelieved by NTG Nitroglycerin (Nitro Dur) 0.1 mg TD QDAY@0600 [facility] Last Admin: 01/10/19 05:59 Dose: 0.1 mg Documented by: Sertraline HCl (Zoloft) 50 mg PO DAILY [facility] Last Admin: 01/10/19 09:23 Dose: 50 mg Documented by: Sodium Chloride (Sodium Chloride Flush Syringe 10 Ml) 10 ml IV PRN PRN PRN Reason: LINE FLUSH Review of Systems All systems: negative Exam - Constitutional Vitals: Temp Pulse Resp BP Pulse Ox 98.7 F 62 20 133/78 98 01/10/19 07:32 01/10/19 11:58 01/10/19 10:00 01/10/19 11:58 01/10/19 07:32 General appearance: Present: no acute distress - Neck Neck: Present: supple - Respiratory Respiratory effort: normal - Cardiovascular Rhythm: regular - Extremities Extremities: no ischemia, pulses intact (palpable femoral pulses), normal temperature Extremity abnormal: pulses diminished (pedal pulses), other - Abdominal General gastrointestinal: Present: soft, non-tender Male genitourinary: Present: deferred - Rectal Rectal Exam: deferred - Integumentary Integumentary: Present: clear Results - Labs CBC & Chem 7: 01/09/19 09:21 01/09/19 09:21 Labs: Abnormal lab results 01/10/19 01/10/19 Range/Units 04:22 11:48 Heparin Anti-Xa Level 0.84 H 0.87 H (0.3-0.7) U.I./ml - Imaging and Cardiology Venous US: image reviewed, other (arterial duplex reviewed) Assessment and Plan Patient with arterial duplex findings consistent with 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 Do not recommend revascularization at this time as he has no complaints of pain or evidence of ulcerations.
[2019-01-11] MEDS: CARDIZEM PO SCH ×4 (01:32→18:06)
[2019-01-11 05:51] LABS: Hematocrit 32.6 % (35.5-45.6); Hemoglobin 10.6 gm/dl (11.8-15.2)
[2019-01-11] MEDS: NITRO DUR TD SCH (06:03)
--- NOTE | 2019-01-11 08:38 | Progress Note ---
Assessment and Plan Patient is a 73-year-old gentleman who is wheelchair bound with a history of CHF, SVT, previous CVA, DVT now off anticvoagulation, right AKA, hypertension, chronic renal failure, suprapubic catheter for outflow obstruction from urinary bladder stone obstruction and depression, who was said to be having rapid heart rate by the home health nurse aid who called my office 01/08/19 informing me of the patient's status. The caregiver was advised to bring the patient into the office. Patient denied any shortness of breath or diaphoresis. EKG in the office showed sinus tachycardia with inverted T-waves. He in addition complained of chest pain for which admission was recommended was recommended through the Ed as pt had complained of chest pain. In the Ed, D-Dimer was 1114.99. BUN was elevate at 21 with Cr of 1.7. Troponin T levels x 2 were normal. BNP was 502.5. 01/09/19 CTA shoowed nooclusve PE 01/09/19n Arrterial doppler showed popliteal artery occlusion - Chest pain Cardiac enzymes 2 were negative EKG shows sinus bradycardia at 55/min now in the 80s Commence oxygen, aspirin, morphine, nitroglycerin Stress test Obtain an Echocardiogram - Acute pulmonary embolism Continue with Heparin gtt - PVD left left From arterial doppler - 01/09/19 intervention/Vascular surgeon consulted. No intervention recommended as pt had n o complain of pain or ulceration - Acute renal insufficiency - imporving Judicious IV hydration given a history of CHF - Status post suprapubic catheter Suprapubic catheter care - Status post right AKA - Dementia: Stable Monitor - History of DVT Anticoagulation heparin and GI with Pepcid Called pt's again [phone] and discussed finding of Pulmonary embolism and PVD left leg with her and plan of care. Expressed understanding and apprciated the update - Time spent during this admission: > 40 mins - Dispositon: D/c planning in 1-2 days Code status Full code Subjective Date of service: 01/11/19 Principal diagnosis: chest pain, PE, acute renal failure, dementia, PVD Interval history: Patient seen and examined. No no new complaint. Denies any shortness of breath. no pain in his left leg Objective - Exam Narrative Exam: Constitutional: Well-nourished well-developed. In no distress Head: Normocephalic atraumatic Eyes: Pupils are equal round and reactive to light Nose: No enlarged turbinates, no septal deviation. Mouth: Moist mucous membranes. Neck: Supple no thyromegaly. No bruit. No JVD Heart: Regular rate and rhythm, S1-S2 normal. No rubs murmurs or gallop Lungs: Clear to auscultation bilaterally. no rales or rhonchi Abdomen: Soft, nontender. Bowel sound are present. Extremities: Right AKA. No edema or cyanosis of the left leg. Neuro: Alert oriented Oriented x1. No focal sensory or motor deficit. Skin: No rashes or hyperpigmented spots Musculoskeletal system: No joint pain or swelling Hematological: No petechia or subcutanous hemorrhages. Immunological: No multiple septic spots on the skin Lymphatic: No generalized lymphadenopathy Psychiatry: Euthymic. Calm. - Constitutional Vitals: Vital Signs - 12hr 01/10/19 01/10/19 01/11/19 22:00 23:07 04:23 Temperature 98.3 F 98.0 F Pulse Rate 56 L 62 49 L Respiratory 18 18 Rate Blood Pressure 160/100 156/92 O2 Sat by Pulse 97 97 Oximetry 01/11/19 01/11/19 05:06 08:07 Temperature 98.2 F Pulse Rate 49 L 57 L Respiratory 20 Rate Blood Pressure 168/94 O2 Sat by Pulse 92 Oximetry - Labs CBC & Chem 7: 01/11/19 04:35 01/09/19 09:21 Labs: Abnormal lab results 01/10/19 01/11/19 01/11/19 Range/Units 11:48 04:35 04:39 Hgb 10.6 L (11.8-15.2) gm/dl Hct 32.6 L (35.5-45.6) % Heparin Anti-Xa Level 0.87 H 0.21 L (0.3-0.7) U.I./ml
[2019-01-11 09:33] LABS: Basophils # (Auto) 0.1 K/mm3 (0.0-0.1); Eosinophils # (Auto) 0.3 K/mm3 (0.0-0.4); Eosinophils % (Auto) 4.6 % (0.0-4.3); Hematocrit 32.9 % (35.5-45.6); Hemoglobin 10.6 gm/dl (11.8-15.2); Lymphocytes # (Auto) 1.3 K/mm3 (1.2-5.4); Lymphocytes % (Auto) 17.9 % (13.4-35.0); Mean Corpuscular HGB Conc 32 % (32-34); Mean Corpuscular Volume 85 fl (84-94); Monocytes # (Auto) 0.9 K/mm3 (0.0-0.8); Platelet Count 216 K/mm3 (140-440); Red Blood Count 3.89 M/mm3 (3.65-5.03); Red Cell Distribution Width 16.1 % (13.2-15.2)
[2019-01-11] MEDS: ZOLOFT PO SCH (09:58)
[2019-01-11] MEDS: ZESTRIL PO SCH (09:58)
[2019-01-11] MEDS: LOPRESSOR PO SCH ×2 (09:58→22:43)
[2019-01-11] MEDS: ECOTRIN PO SCH (10:00)
--- NOTE | 2019-01-11 10:52 | Progress Note ---
Assessment and Plan Currently stable cardiac status. Cont present cardiac management. Will follow on as needed basis. The patient has been seen in conjunction with Dr. Salmon who agrees with the assessment and plan of care. - Patient Problems (1) Paroxysmal SVT (supraventricular tachycardia) Current Visit: Yes Status: Chronic (2) Chest pain Current Visit: Yes Status: Acute (3) Dyspnea Current Visit: Yes Status: Acute (4) Chronic renal insufficiency Current Visit: Yes Status: Chronic (5) Bladder outlet obstruction Current Visit: Yes Status: Chronic (6) Suprapubic catheter Current Visit: Yes Status: Chronic (7) Dementia Current Visit: Yes Status: Chronic (8) Status post above knee amputation of right lower extremity Current Visit: Yes Status: Chronic (9) HTN (hypertension) Current Visit: Yes Status: Chronic Qualifiers: Hypertension type: essential hypertension Qualified Code(s): I10 - Essential (primary) hypertension (10) History of CVA (cerebrovascular accident) Current Visit: Yes Status: Chronic (11) History of DVT (deep vein thrombosis) Current Visit: Yes Status: Chronic (12) PVD (peripheral vascular disease) Current Visit: Yes Status: Chronic Subjective Date of service: 01/11/19 Principal diagnosis: chest pain, PE, acute renal failure, dementia, PVD Interval history: pt resting in bed, no current complaints. tele reviewed - in SR overnight. Objective Last Vital Signs Temp 98.2 F 01/11/19 08:07 Pulse 57 L 01/11/19 08:07 Resp 20 01/11/19 08:07 BP 168/94 01/11/19 08:07 Pulse Ox 92 01/11/19 08:07 - Physical Examination General: No Apparent Distress HEENT: Positive: PERRL, Normocephaly, Mucus Membranes Moist Neck: Positive: neck supple, trachea midline Cardiac: Positive: Reg Rate and Rhythm, S1/S2 Lungs: Positive: Decreased Breath Sounds Neuro: Positive: Grossly Intact Abdomen: Negative: Tender Extremities: Present: Other (right AKA) - Labs and Meds CBC 01/11/19 01/11/19 Range/Units 04:35 09:18 WBC 7.2 (4.5-11.0) K/mm3 RBC 3.89 (3.65-5.03) M/mm3 Hgb 10.6 L 10.6 L (11.8-15.2) gm/dl Hct 32.6 L 32.9 L (35.5-45.6) % Plt Count 229 216 (140-440) K/mm3 Lymph # 1.3 (1.2-5.4) K/mm3 [place] # 0.9 H (0.0-0.8) K/mm3 Eos # 0.3 (0.0-0.4) K/mm3 Baso # 0.1 (0.0-0.1) K/mm3 Comprehensive Metabolic Panel 01/11/19 Range/Units 09:18 Sodium 139 (137-145) mmol/L Potassium 3.8 (3.6-5.0) mmol/L Chloride 106.8 (98-107) mmol/L Carbon Dioxide 22 (22-30) mmol/L BUN 12 (9-20) mg/dL Creatinine 1.5 (0.8-1.5) mg/dL Glucose 86 (75-100) mg/dL Calcium 8.0 L (8.4-10.2) mg/dL - Imaging and Cardiology EKG: report reviewed, image reviewed Echo: report reviewed (12/06/2018 showed EF 55-60%, impaired relaxation, trace MR, mild TR, RVSP 35mmHg. ) - EKG Sinus rhythms and dysrhythmias: sinus rhythm
[2019-01-11] MEDS: D5/0.45NS 1,000 ML IV SCH (16:08)
[2019-01-12] MEDS: CARDIZEM PO SCH ×4 (01:13→18:00)
[2019-01-12] MEDS ORDERED: APRESOLINE IV PRN (04:46)
[2019-01-12] MEDS: HEPARIN/ 0.45% NACL-25,000 UNIT/500 ML 25,000 UNIT/500 ML BAG IV SCH (05:08)
[2019-01-12] MEDS: NITRO DUR TD SCH (05:08)
[2019-01-12] MEDS: NORVASC PO SCH (10:03)
[2019-01-12] MEDS: ZESTRIL PO SCH (10:03)
[2019-01-12] MEDS: ECOTRIN PO SCH (10:03)
[2019-01-12] MEDS: ZOLOFT PO SCH (10:04)
--- NOTE | 2019-01-12 12:23 | Progress Note ---
Assessment and Plan Patient is a 73-year-old gentleman who is wheelchair bound with a history of CHF, SVT, previous CVA, DVT now off anticvoagulation, right AKA, hypertension, chronic renal failure, suprapubic catheter for outflow obstruction from urinary bladder stone obstruction and depression, who was said to be having rapid heart rate by the home health nurse aid who called my office 01/08/19 informing me of the patient's status. The caregiver was advised to bring the patient into the office. Patient denied any shortness of breath or diaphoresis. EKG in the office showed sinus tachycardia with inverted T-waves. He in addition complained of chest pain for which admission was recommended was recommended through the Ed as pt had complained of chest pain. In the Ed, D-Dimer was 1114.99. BUN was elevate at 21 with Cr of 1.7. Troponin T levels x 2 were normal. BNP was 502.5. 01/09/19 CTA showed nonocclusive PE 01/09/19n Arterial doppler showed popliteal artery occlusion - Chest pain - resolved Cardiac enzymes 2 were negative EKG shows sinus bradycardia at 55/min now in the 80s Cardiology consulted and imput noted Continue oxygen, aspirin, morphine, nitroglycerin ECHO of (12/06/2018 showed EF 55-60%, impaired relaxation, trace MR, mild TR, RVSP 35mmHg. - Anemia of chronic disease - Acute pulmonary embolism Continue with Heparin gtt - PVD left left From arterial doppler - 01/09/19 intervention/Vascular surgeon consulted. No intervention recommended as pt had no complain of pain or ulceration - Status post suprapubic catheter Suprapubic catheter care - Status post right AKA - Dementia: Stable Monitor - History of DVT Anticoagulation heparin and GI with Pepcid Called pt's again [phone]. Desire pt to go to SNF with rehabilitation capacity. CM looking for SNF - Time spent during this admission: > 35 min mins - Disposition: D/c to SNF when a placement is secured Code status Full code Subjective Date of service: 01/12/19 Principal diagnosis: chest pain, PE, acute renal failure, dementia, PVD Interval history: Patient seen and examined. No no new complaint. Denies any shortness of breath. no pain in his left leg Objective - Exam Narrative Exam: Constitutional: Well-nourished well-developed. In no distress Head: Normocephalic atraumatic Eyes: Pupils are equal round and reactive to light Nose: No enlarged turbinates, no septal deviation. Mouth: Moist mucous membranes. Neck: Supple no thyromegaly. No bruit. No JVD Heart: Regular rate and rhythm, S1-S2 normal. No rubs murmurs or gallop Lungs: Clear to auscultation bilaterally. no rales or rhonchi Abdomen: Soft, nontender. Bowel sound are present. Extremities: Right AKA. No edema or cyanosis of the left leg. Neuro: Alert oriented Oriented x1. No focal sensory or motor deficit. Skin: No rashes or hyperpigmented spots Musculoskeletal system: No joint pain or swelling Hematological: No petechia or subcutanous hemorrhages. Immunological: No multiple septic spots on the skin Lymphatic: No generalized lymphadenopathy Psychiatry: Euthymic. Calm. mildly confused - Constitutional Vitals: Vital Signs - 12hr 01/12/19 01/12/19 01/12/19 04:17 08:19 09:19 Temperature 98.2 F 98.7 F 98.7 F Pulse Rate 53 L 64 60 Respiratory 18 16 16 Rate Blood Pressure 178/104 141/78 Blood Pressure 141/78 [Left] O2 Sat by Pulse 99 98 93 Oximetry - Labs CBC & Chem 7: 01/11/19 09:18 01/11/19 09:18 Labs: Abnormal lab results 01/11/19 01/11/19 01/11/19 Range/Units 12:22 16:38 20:55 Heparin Anti-Xa Level (0.3-0.7) U.I./ml POC Glucose 115 H 121 H 145 H (70-105) 01/12/19 Range/Units 04:23 Heparin Anti-Xa Level 0.17 L (0.3-0.7) U.I./ml POC Glucose (70-105)
[2019-01-12] MEDS: LOPRESSOR PO SCH ×2 (12:49→22:02)
[2019-01-12] MEDS ORDERED: LOPRESSOR IV ONE (13:00)
[2019-01-13] MEDS: CARDIZEM PO SCH ×4 (01:28→18:17)
[2019-01-13] MEDS: NITRO DUR TD SCH (05:41)
[2019-01-13 07:12] LABS: Basophils # (Auto) 0.1 K/mm3 (0.0-0.1); Basophils % (Auto) 0.7 % (0.0-1.8); Eosinophils # (Auto) 0.3 K/mm3 (0.0-0.4); Eosinophils % (Auto) 3.8 % (0.0-4.3); Hematocrit 33.7 % (35.5-45.6); Hemoglobin 10.9 gm/dl (11.8-15.2); Lymphocytes # (Auto) 1.8 K/mm3 (1.2-5.4); Lymphocytes % (Auto) 22.1 % (13.4-35.0); Mean Corpuscular HGB Conc 32 % (32-34); Mean Corpuscular Volume 85 fl (84-94); Monocytes # (Auto) 0.9 K/mm3 (0.0-0.8); Platelet Count 232 K/mm3 (140-440); Red Blood Count 3.95 M/mm3 (3.65-5.03); Red Cell Distribution Width 16.5 % (13.2-15.2)
[2019-01-13 07:40] LABS: Albumin 3.1 g/dL (3.9-5); Calcium 8.2 mg/dL (8.4-10.2)
[2019-01-13] MEDS: ECOTRIN PO SCH (11:30)
[2019-01-13] MEDS: LOPRESSOR PO SCH ×2 (11:30→21:43)
[2019-01-13] MEDS: ZOLOFT PO SCH (11:32)
--- NOTE | 2019-01-13 13:18 | Progress Note ---
Assessment and Plan 73-year-old male paroxysmal SVT Continue beta edwin History of CVA Hypertension DVT Right AKA Chronic kidney disease Dementia Bladder outflow obstruction status post suprapubic catheter placement Echo done 12/06/2018 showed EF 55-60%, impaired relaxation, trace MR, mild TR, RVSP 35mmHg. Subjective Date of service: 01/13/19 Principal diagnosis: chest pain, PE, acute renal failure, dementia, PVD Interval history: 9 in bed sleeping comfortably Objective Vital Signs Temp Pulse Resp BP Pulse Ox 01/13/19 09:26 97.5 F L 61 18 148/98 94 01/13/19 03:39 98.4 F 59 L 18 147/81 94 01/12/19 23:12 98.8 F 50 L 18 115/78 96 01/12/19 22:02 48 L 01/12/19 22:00 53 L 20 01/12/19 19:38 98.5 F 54 L 18 111/69 97 01/12/19 16:24 98.2 F 65 16 114/76 99 - Physical Examination General: No Apparent Distress HEENT: Positive: PERRL, Normocephaly, Mucus Membranes Moist Neck: Positive: neck supple, trachea midline Cardiac: Positive: Reg Rate and Rhythm Lungs: Positive: Decreased Breath Sounds Neuro: Positive: Grossly Intact Abdomen: Negative: Tender Extremities: Present: Other (right AKA) - Labs and Meds Cardiac Enzymes 01/13/19 Range/Units 06:31 AST 15 (5-40) units/L CBC 01/13/19 Range/Units 06:31 WBC 8.3 (4.5-11.0) K/mm3 RBC 3.95 (3.65-5.03) M/mm3 Hgb 10.9 L (11.8-15.2) gm/dl Hct 33.7 L (35.5-45.6) % Plt Count 232 (140-440) K/mm3 Lymph # 1.8 (1.2-5.4) K/mm3 [place] # 0.9 H (0.0-0.8) K/mm3 Eos # 0.3 (0.0-0.4) K/mm3 Baso # 0.1 (0.0-0.1) K/mm3 Comprehensive Metabolic Panel 01/13/19 Range/Units 06:31 Sodium 140 (137-145) mmol/L Potassium 3.9 (3.6-5.0) mmol/L Chloride 108.3 H (98-107) mmol/L Carbon Dioxide 21 L (22-30) mmol/L BUN 11 (9-20) mg/dL Creatinine 1.7 H (0.8-1.5) mg/dL Glucose 87 (75-100) mg/dL Calcium 8.2 L (8.4-10.2) mg/dL AST 15 (5-40) units/L ALT 12 (7-56) units/L Alkaline Phosphatase 80 (35-129) units/L Total Protein 6.4 (6.3-8.2) g/dL Albumin 3.1 L (3.9-5) g/dL - Imaging and Cardiology EKG: report reviewed, image reviewed Echo: report reviewed (12/06/2018 showed EF 55-60%, impaired relaxation, trace MR, mild TR, RVSP 35mmHg. ) - EKG Sinus rhythms and dysrhythmias: sinus rhythm
--- NOTE | 2019-01-13 13:33 | Progress Note ---
Assessment and Plan Patient is a 73-year-old gentleman who is wheelchair bound with a history of CHF, SVT, previous CVA, DVT now off anticvoagulation, right AKA, hypertension, chronic renal failure, suprapubic catheter for outflow obstruction from urinary bladder stone obstruction and depression, who was said to be having rapid heart rate by the home health nurse aid who called my office 01/08/19 informing me of the patient's status. The caregiver was advised to bring the patient into the office. Patient denied any shortness of breath or diaphoresis. EKG in the office showed sinus tachycardia with inverted T-waves. He in addition complained of chest pain for which admission was recommended was recommended through the Ed as pt had complained of chest pain. In the Ed, D-Dimer was 1114.99. BUN was elevate at 21 with Cr of 1.7. Troponin T levels x 2 were normal. BNP was 502.5. 01/09/19 CTA showed nonocclusive PE 01/09/19n Arterial doppler showed popliteal artery occlusion - Chest pain - resolved Cardiac enzymes 2 were negative EKG shows sinus bradycardia at 55/min now in the 80s Cardiology consulted and imput noted Continue oxygen, aspirin, morphine, nitroglycerin ECHO of (12/06/2018 showed EF 55-60%, impaired relaxation, trace MR, mild TR, RVSP 35mmHg. - Anemia of chronic disease - Acute pulmonary embolism Continue with Heparin gtt - PVD left left From arterial doppler - 01/09/19 intervention/Vascular surgeon consulted. No intervention recommended as pt had no complain of pain or ulceration - Status post suprapubic catheter Suprapubic catheter care - Status post right AKA - Dementia: Stable Monitor - History of DVT Anticoagulation heparin and GI with Pepcid Called pt's again [phone]. Desire pt to go to SNF with rehabilitation capacity. CM looking for SNF - Time spent during this admission: > 30 mins - Disposition: Awaiting SNF placement. Code status Full code Subjective Date of service: 01/13/19 Principal diagnosis: chest pain, PE, acute renal failure, dementia, PVD Interval history: Patient seen and examined. No no new complaint. Denies any shortness of breath. no pain in his left leg. Pleasantly confused Objective - Exam Narrative Exam: Constitutional: Well-nourished well-developed. In no distress Head: Normocephalic atraumatic Eyes: Pupils are equal round and reactive to light Nose: No enlarged turbinates, no septal deviation. Mouth: Moist mucous membranes. Neck: Supple no thyromegaly. No bruit. No JVD Heart: Regular rate and rhythm, S1-S2 normal. No rubs murmurs or gallop Lungs: Clear to auscultation bilaterally. no rales or rhonchi Abdomen: Soft, nontender. Bowel sound are present. Extremities: Right AKA. No edema or cyanosis of the left leg. Decreased left dorsalis pedis pulse Neuro: Alert oriented Oriented x1. No focal sensory or motor deficit. Skin: No rashes or hyperpigmented spots Musculoskeletal system: No joint pain or swelling Hematological: No petechia or subcutanous hemorrhages. Immunological: No multiple septic spots on the skin Lymphatic: No generalized lymphadenopathy Psychiatry: Euthymic. Calm. mildly confused - Constitutional Vitals: Vital Signs - 12hr 01/13/19 01/13/19 03:39 09:26 Temperature 98.4 F 97.5 F L Pulse Rate 59 L 61 Respiratory 18 18 Rate Blood Pressure 147/81 148/98 O2 Sat by Pulse 94 94 Oximetry - Labs CBC & Chem 7: 01/13/19 06:31 01/13/19 06:31 Labs: Abnormal lab results 01/13/19 01/13/19 01/13/19 Range/Units 06:31 06:31 06:31 Hgb 10.9 L (11.8-15.2) gm/dl Hct 33.7 L (35.5-45.6) % RDW 16.5 H (13.2-15.2) % [place] % (Auto) 11.0 H (0.0-7.3) % [place] # 0.9 H (0.0-0.8) K/mm3 Heparin Anti-Xa Level 0.25 L (0.3-0.7) U.I./ml Chloride 108.3 H (98-107) mmol/L Carbon Dioxide 21 L (22-30) mmol/L Creatinine 1.7 H (0.8-1.5) mg/dL Calcium 8.2 L (8.4-10.2) mg/dL Albumin 3.1 L (3.9-5) g/dL
[2019-01-13] MEDS: D5/0.45NS 1,000 ML IV SCH (15:39)
[2019-01-13] MEDS: NORVASC PO SCH (15:39)
[2019-01-13] MEDS: ZESTRIL PO SCH (15:40)
[2019-01-13] MEDS: HEPARIN/ 0.45% NACL-25,000 UNIT/500 ML 25,000 UNIT/500 ML BAG IV SCH (18:17)
[2019-01-14] MEDS: CARDIZEM PO SCH ×2 (00:26→06:14)
[2019-01-14 04:30] LABS: Hematocrit 37.1 % (35.5-45.6); Hemoglobin 11.9 gm/dl (11.8-15.2); Mean Corpuscular HGB Conc 32 % (32-34); Mean Corpuscular Volume 85 fl (84-94); Red Blood Count 4.39 M/mm3 (3.65-5.03); Red Cell Distribution Width 16.2 % (13.2-15.2)
[2019-01-14 04:31] LABS: Basophils # (Auto) 0.1 K/mm3 (0.0-0.1); Basophils % (Auto) 0.6 % (0.0-1.8); Eosinophils # (Auto) 0.3 K/mm3 (0.0-0.4); Eosinophils % (Auto) 3.3 % (0.0-4.3); Lymphocytes # (Auto) 1.6 K/mm3 (1.2-5.4); Lymphocytes % (Auto) 17.8 % (13.4-35.0); Monocytes # (Auto) 0.7 K/mm3 (0.0-0.8); Monocytes % (Auto) 7.8 % (0.0-7.3); Platelet Count 233 K/mm3 (140-440)
[2019-01-14 04:53] LABS: Albumin 3.2 g/dL (3.9-5); Calcium 8.6 mg/dL (8.4-10.2)
[2019-01-14] MEDS: NITRO DUR TD SCH (06:14)
[2019-01-14] MEDS: ECOTRIN PO SCH (09:22)
[2019-01-14] MEDS: ZESTRIL PO SCH (09:22)
[2019-01-14] MEDS: ZOLOFT PO SCH (09:22)
[2019-01-14] MEDS: NORVASC PO SCH (09:22)
[2019-01-14] MEDS: LOPRESSOR PO SCH ×3 (09:23→22:43)
--- NOTE | 2019-01-14 09:28 | Progress Note ---
Assessment and Plan Patient is a 73-year-old gentleman who is wheelchair bound with a history of CHF, SVT, previous CVA, DVT now off anticvoagulation, right AKA, hypertension, chronic renal failure, suprapubic catheter for outflow obstruction from urinary bladder stone obstruction and depression, who was said to be having rapid heart rate by the home health nurse aid who called my office 01/08/19 informing me of the patient's status. The caregiver was advised to bring the patient into the office. Patient denied any shortness of breath or diaphoresis. EKG in the office showed sinus tachycardia with inverted T-waves. He in addition complained of chest pain for which admission was recommended was recommended through the Ed as pt had complained of chest pain. In the Ed, D-Dimer was 1114.99. BUN was elevate at 21 with Cr of 1.7. Troponin T levels x 2 were normal. BNP was 502.5. 01/09/19 CTA showed nonocclusive PE 01/09/19n Arterial doppler showed popliteal artery occlusion - Chest pain - resolved Cardiac enzymes 2 were negative EKG shows sinus bradycardia at 55/min now in the 80s Cardiology consulted and imput noted Continue oxygen, aspirin, morphine, nitroglycerin ECHO of (12/06/2018 showed EF 55-60%, impaired relaxation, trace MR, mild TR, RVSP 35mmHg. - Anemia of chronic disease - Acute pulmonary embolism Continue with Heparin gtt. Change to Eliquis in preparation of d/c - PVD left left From arterial doppler - 01/09/19 intervention/Vascular surgeon consulted. No intervention recommended as pt had no complain of pain or ulceration left leg - Status post suprapubic catheter Suprapubic catheter care - Status post right AKA - Dementia: Stable Monitor - History of DVT Anticoagulation heparin and GI with Pepcid Called pt's again [phone] on 01/12/19. Desires pt to go to SNF with rehabilitation capacity. CM looking for SNF - Time spent during this admission: > 30 mins - Disposition: Awaiting SNF placement. Code status Full code Subjective Date of service: 01/14/19 Principal diagnosis: chest pain, PE, acute renal failure, dementia, PVD Interval history: Patient seen and examined. No new complaint. No overnight event reported to me by nursing staff. Denies any shortness of breath. no pain in his left leg. P leasantly confused Objective - Exam Narrative Exam: Constitutional:Well-nourished well-developed. In no distress Head: Normocephalic atraumatic Eyes: Pupils are equal round and reactive to light Nose: No enlarged turbinates, no septal deviation. Mouth: Moist mucous membranes. Neck: Supple no thyromegaly. No bruit. No JVD Heart: Regular rate and rhythm, S1-S2 normal. No rubs murmurs or gallop Lungs: Clear to auscultation bilaterally. no rales or rhonchi Abdomen: Soft, nontender. Bowel sound are present. Extremities: Right AKA. No edema or cyanosis of the left leg. Decreased left dorsalis pedis pulse Neuro: Alert oriented Oriented x1. No motor deficit. Skin: No rashes or hyperpigmented spots Musculoskeletal system: No joint pain or swelling Hematological: No petechia or subcutanous hemorrhages. Immunological: No multiple septic spots on the skin Lymphatic: No generalized lymphadenopathy Psychiatry: Euthymic. Calm. mildly confused - Constitutional Vitals: Vital Signs - 12hr 01/13/19 01/13/19 01/14/19 21:43 23:14 00:26 Temperature 98.2 F Pulse Rate 52 L 48 L 50 L Respiratory 20 Rate Blood Pressure 143/85 153/82 153/82 O2 Sat by Pulse 96 Oximetry 01/14/19 01/14/19 01/14/19 03:00 04:33 06:14 Temperature 97.7 F Pulse Rate 56 L 57 L 63 Respiratory 20 Rate Blood Pressure 144/79 144/79 O2 Sat by Pulse 95 Oximetry 01/14/19 01/14/19 09:22 09:23 Temperature Pulse Rate 54 L 54 L Respiratory Rate Blood Pressure 138/80 138/80 O2 Sat by Pulse Oximetry - Labs CBC & Chem 7: 01/14/19 03:37 01/14/19 03:37 Labs: Abnormal lab results 01/13/19 01/14/19 01/14/19 Range/Units 20:48 03:37 03:37 MCH 27 L (28-32) pg RDW 16.2 H (13.2-15.2) % [place] % (Auto) 7.8 H (0.0-7.3) % Seg Neutrophils % 70.5 H (40.0-70.0) % Heparin Anti-Xa Level (0.3-0.7) U.I./ml Glucose 115 H (75-100) mg/dL POC Glucose 139 H (70-105) Albumin 3.2 L (3.9-5) g/dL 01/14/19 Range/Units 06:23 MCH (28-32) pg RDW (13.2-15.2) % [place] % (Auto) (0.0-7.3) % Seg Neutrophils % (40.0-70.0) % Heparin Anti-Xa Level 0.13 L (0.3-0.7) U.I./ml Glucose (75-100) mg/dL POC Glucose (70-105) Albumin (3.9-5) g/dL
--- NOTE | 2019-01-14 10:27 | Progress Note ---
Assessment and Plan Currently stable cardiac status. Cont present cardiac management. Will follow on as needed basis. The patient has been seen in conjunction with Dr. Salmon who agrees with the assessment and plan of care. - Patient Problems (1) Paroxysmal SVT (supraventricular tachycardia) Current Visit: Yes Status: Chronic (2) Chest pain Current Visit: Yes Status: Acute (3) Dyspnea Current Visit: Yes Status: Acute (4) Chronic renal insufficiency Current Visit: Yes Status: Chronic (5) Bladder outlet obstruction Current Visit: Yes Status: Chronic (6) Suprapubic catheter Current Visit: Yes Status: Chronic (7) Dementia Current Visit: Yes Status: Chronic (8) Status post above knee amputation of right lower extremity Current Visit: Yes Status: Chronic (9) HTN (hypertension) Current Visit: Yes Status: Chronic Qualifiers: Hypertension type: essential hypertension Qualified Code(s): I10 - Essential (primary) hypertension (10) History of CVA (cerebrovascular accident) Current Visit: Yes Status: Chronic (11) History of DVT (deep vein thrombosis) Current Visit: Yes Status: Chronic (12) PVD (peripheral vascular disease) Current Visit: Yes Status: Chronic Subjective Date of service: 01/14/19 Principal diagnosis: chest pain, PE, acute renal failure, dementia, PVD Interval history: pt resting in bed, no current complaints. tele reviewed - in SR/SB overnight. Objective Last Vital Signs Temp 97.7 F 01/14/19 04:33 Pulse 54 L 01/14/19 09:23 Resp 20 01/14/19 04:33 BP 138/80 01/14/19 09:23 Pulse Ox 95 01/14/19 04:33 - Physical Examination General: No Apparent Distress HEENT: Positive: PERRL, Normocephaly, Mucus Membranes Moist Neck: Positive: neck supple, trachea midline Neuro: Positive: Grossly Intact Abdomen: Negative: Tender Extremities: Present: Other (right AKA) - Labs and Meds Cardiac Enzymes 01/14/19 Range/Units 03:37 AST 18 (5-40) units/L CBC 01/14/19 Range/Units 03:37 WBC 8.8 (4.5-11.0) K/mm3 RBC 4.39 (3.65-5.03) M/mm3 Hgb 11.9 (11.8-15.2) gm/dl Hct 37.1 (35.5-45.6) % Plt Count 233 (140-440) K/mm3 Lymph # 1.6 (1.2-5.4) K/mm3 [place] # 0.7 (0.0-0.8) K/mm3 Eos # 0.3 (0.0-0.4) K/mm3 Baso # 0.1 (0.0-0.1) K/mm3 Comprehensive Metabolic Panel 01/14/19 Range/Units 03:37 Sodium 140 (137-145) mmol/L Potassium 3.6 (3.6-5.0) mmol/L Chloride 106.0 (98-107) mmol/L Carbon Dioxide 22 (22-30) mmol/L BUN 11 (9-20) mg/dL Creatinine 1.5 (0.8-1.5) mg/dL Glucose 115 H (75-100) mg/dL Calcium 8.6 (8.4-10.2) mg/dL AST 18 (5-40) units/L ALT 14 (7-56) units/L Alkaline Phosphatase 93 (35-129) units/L Total Protein 6.5 (6.3-8.2) g/dL Albumin 3.2 L (3.9-5) g/dL - Imaging and Cardiology EKG: report reviewed, image reviewed Echo: report reviewed (12/06/2018 showed EF 55-60%, impaired relaxation, trace MR, mild TR, RVSP 35mmHg. ) - EKG Sinus rhythms and dysrhythmias: sinus rhythm
[2019-01-15 04:52] LABS: Basophils # (Auto) 0.1 K/mm3 (0.0-0.1); Basophils % (Auto) 0.7 % (0.0-1.8); Eosinophils # (Auto) 0.2 K/mm3 (0.0-0.4); Eosinophils % (Auto) 2.7 % (0.0-4.3); Hematocrit 35.8 % (35.5-45.6); Hemoglobin 11.5 gm/dl (11.8-15.2); Lymphocytes # (Auto) 1.4 K/mm3 (1.2-5.4); Lymphocytes % (Auto) 16.2 % (13.4-35.0); Mean Corpuscular HGB Conc 32 % (32-34); Mean Corpuscular Volume 85 fl (84-94); Monocytes # (Auto) 0.8 K/mm3 (0.0-0.8); Monocytes % (Auto) 9.1 % (0.0-7.3); Platelet Count 232 K/mm3 (140-440); Red Cell Distribution Width 16.5 % (13.2-15.2)
[2019-01-15 05:18] LABS: Albumin 3.1 g/dL (3.9-5); Calcium 8.5 mg/dL (8.4-10.2)
[2019-01-15] MEDS: NITRO DUR TD SCH (05:48)
--- NOTE | 2019-01-15 08:44 | Progress Note ---
Assessment and Plan Patient is a 73-year-old gentleman who is wheelchair bound with a history of CHF, SVT, previous CVA, DVT now off anticvoagulation, right AKA, hypertension, chronic renal failure, suprapubic catheter for outflow obstruction from urinary bladder stone obstruction and depression, who was said to be having rapid heart rate by the home health nurse aid who called my office 01/08/19 informing me of the patient's status. The caregiver was advised to bring the patient into the office. Patient denied any shortness of breath or diaphoresis. EKG in the office showed sinus tachycardia with inverted T-waves. He in addition complained of chest pain for which admission was recommended was recommended through the Ed as pt had complained of chest pain. In the Ed, D-Dimer was 1114.99. BUN was elevate at 21 with Cr of 1.7. Troponin T levels x 2 were normal. BNP was 502.5. Recent ECHO 12/06/18 showed EF of 55-60% 01/09/19 CTA showed nonocclusive PE 01/09/19n Arterial doppler showed popliteal artery occlusion - Acute pulmonary embolism per CTA chest of 01/09/19 D/melva heparin and now on Eliquis - Chest pain - resolved Cardiac enzymes 2 were negative EKG shows sinus bradycardia at 55/min now in the 80s Cardiology consulted and imput noted Continue oxygen, aspirin, morphine, nitroglycerin ECHO of (12/06/2018 showed EF 55-60%, impaired relaxation, trace MR, mild TR, RVSP 35mmHg. - Anemia of chronic disease - PVD left left From arterial doppler - 01/09/19 intervention/Vascular surgeon consulted. No intervention recommended as pt had no complain of pain or ulceration - Status post suprapubic catheter Suprapubic catheter care - Status post right AKA - Dementia: Stable Monitor - History of DVT Anticoagulation heparin and GI with Pepcid Called pt's again [phone]. Desire pt to go to SNF with rehabilitation capacity. CM looking for SNF - Time spent during this admission: > 35 min mins - Disposition: Awaiting insurance authorization for SNF placemnt Code status Full code Subjective Date of service: 01/15/19 Principal diagnosis: chest pain, PE, acute renal failure, dementia, PVD Interval history: Patient seen and examined. No new complaint. Denies any shortness of breath. no pain in his left leg. Pleasantly confused Objective - Exam Narrative Exam: Constitutional: Well-nourished well-developed. In no distress Head: Normocephalic atraumatic Eyes: Pupils are equal round and reactive to light Nose: No enlarged turbinates, no septal deviation. Mouth: Moist mucous membranes. Neck: Supple no thyromegaly. No bruit. No JVD Heart: Regular rate and rhythm, S1-S2 normal. No rubs murmurs or gallop Lungs: Clear to auscultation bilaterally. no rales or rhonchi Abdomen: Soft, nontender. Bowel sound are present. Extremities: Right AKA. No edema or cyanosis of the left leg. Neuro: Alert oriented Oriented x1. No focal sensory or motor deficit. Skin: No rashes or hyperpigmented spots Musculoskeletal system: No joint pain or swelling Hematological: No petechia or subcutanous hemorrhages. Immunological: No multiple septic spots on the skin Lymphatic: No generalized lymphadenopathy Psychiatry: Euthymic. Calm. Pleasantly confused - Constitutional Vitals: Vital Signs - 12hr 01/14/19 01/15/19 01/15/19 23:36 04:32 05:48 Temperature 98.5 F 98.4 F Pulse Rate 69 65 73 Respiratory 16 18 Rate Blood Pressure 139/86 149/91 149/90 O2 Sat by Pulse 94 98 Oximetry - Labs CBC & Chem 7: 01/15/19 04:35 01/15/19 04:35 Labs: Abnormal lab results 01/14/19 01/14/19 01/14/19 Range/Units 11:34 16:10 21:37 Hgb (11.8-15.2) gm/dl MCH (28-32) pg RDW (13.2-15.2) % [place] % (Auto) (0.0-7.3) % Seg Neutrophils % (40.0-70.0) % POC Glucose 118 H 119 H 117 H (70-105) Albumin (3.9-5) g/dL 01/15/19 01/15/19 Range/Units 04:35 04:35 Hgb 11.5 L (11.8-15.2) gm/dl MCH 27 L (28-32) pg RDW 16.5 H (13.2-15.2) % [place] % (Auto) 9.1 H (0.0-7.3) % Seg Neutrophils % 71.3 H (40.0-70.0) % POC Glucose (70-105) Albumin 3.1 L (3.9-5) g/dL
--- NOTE | 2019-01-15 10:02 | Progress Note ---
Assessment and Plan Currently stable cardiac status. Cont present cardiac management. Will follow on as needed basis. The patient has been seen in conjunction with Dr. Milagros Roth who agrees with the assessment and plan of care. - Patient Problems (1) Paroxysmal SVT (supraventricular tachycardia) Current Visit: Yes Status: Chronic (2) Chest pain Current Visit: Yes Status: Acute (3) Dyspnea Current Visit: Yes Status: Acute (4) Chronic renal insufficiency Current Visit: Yes Status: Chronic (5) Bladder outlet obstruction Current Visit: Yes Status: Chronic (6) Suprapubic catheter Current Visit: Yes Status: Chronic (7) Dementia Current Visit: Yes Status: Chronic (8) Status post above knee amputation of right lower extremity Current Visit: Yes Status: Chronic (9) HTN (hypertension) Current Visit: Yes Status: Chronic Qualifiers: Hypertension type: essential hypertension Qualified Code(s): I10 - Essential (primary) hypertension (10) History of CVA (cerebrovascular accident) Current Visit: Yes Status: Chronic (11) History of DVT (deep vein thrombosis) Current Visit: Yes Status: Chronic (12) PVD (peripheral vascular disease) Current Visit: Yes Status: Chronic Subjective Date of service: 01/15/19 Principal diagnosis: chest pain, PE, acute renal failure, dementia, PVD Interval history: pt resting in bed, no current complaints. tele reviewed - in SR overnight, had a bout of SVT yesterday afternoon, pt asymptomatic. Objective Last Vital Signs Temp 98.4 F 01/15/19 04:32 Pulse 67 01/15/19 08:42 Resp 20 01/15/19 08:42 BP 134/92 01/15/19 08:42 Pulse Ox 97 01/15/19 08:42 - Physical Examination General: No Apparent Distress HEENT: Positive: PERRL, Normocephaly, Mucus Membranes Moist Neck: Positive: neck supple, trachea midline Cardiac: Positive: Reg Rate and Rhythm, S1/S2 Lungs: Positive: Decreased Breath Sounds Neuro: Positive: Grossly Intact Abdomen: Negative: Tender Extremities: Present: Other (right AKA) - Labs and Meds Cardiac Enzymes 01/15/19 Range/Units 04:35 AST 15 (5-40) units/L CBC 01/15/19 Range/Units 04:35 WBC 8.8 (4.5-11.0) K/mm3 RBC 4.20 (3.65-5.03) M/mm3 Hgb 11.5 L (11.8-15.2) gm/dl Hct 35.8 (35.5-45.6) % Plt Count 232 (140-440) K/mm3 Lymph # 1.4 (1.2-5.4) K/mm3 [place] # 0.8 (0.0-0.8) K/mm3 Eos # 0.2 (0.0-0.4) K/mm3 Baso # 0.1 (0.0-0.1) K/mm3 Comprehensive Metabolic Panel 01/15/19 Range/Units 04:35 Sodium 139 (137-145) mmol/L Potassium 4.1 (3.6-5.0) mmol/L Chloride 106.2 (98-107) mmol/L Carbon Dioxide 22 (22-30) mmol/L BUN 15 (9-20) mg/dL Creatinine 1.5 (0.8-1.5) mg/dL Glucose 89 (75-100) mg/dL Calcium 8.5 (8.4-10.2) mg/dL AST 15 (5-40) units/L ALT 13 (7-56) units/L Alkaline Phosphatase 107 (35-129) units/L Total Protein 6.4 (6.3-8.2) g/dL Albumin 3.1 L (3.9-5) g/dL - Imaging and Cardiology EKG: report reviewed, image reviewed Echo: report reviewed (12/06/2018 showed EF 55-60%, impaired relaxation, trace MR, mild TR, RVSP 35mmHg. ) - EKG Sinus rhythms and dysrhythmias: sinus rhythm
[2019-01-15] MEDS: ECOTRIN PO SCH (10:18)
[2019-01-15] MEDS: LOPRESSOR PO SCH ×2 (10:18→22:27)
[2019-01-15] MEDS: ELIQUIS PO SCH ×2 (10:18→22:29)
[2019-01-15] MEDS: ZESTRIL PO SCH (10:19)
[2019-01-15] MEDS: ZOLOFT PO SCH (10:19)
[2019-01-15] MEDS: NORVASC PO SCH (10:22)
[2019-01-16] MEDS: NITRO DUR TD SCH (05:42)
[2019-01-16] MEDS: D5/0.45NS 1,000 ML IV SCH (05:43)
--- NOTE | 2019-01-16 08:54 | Progress Note ---
Assessment and Plan Patient is a 73-year-old gentleman who is wheelchair bound with a history of CHF, SVT, previous CVA, DVT now off anticvoagulation, right AKA, hypertension, chronic renal failure, suprapubic catheter for outflow obstruction from urinary bladder stone obstruction and depression, who was said to be having rapid heart rate by the home health nurse aid who called my office 01/08/19 informing me of the patient's status. The caregiver was advised to bring the patient into the office. Patient denied any shortness of breath or diaphoresis. EKG in the office showed sinus tachycardia with inverted T-waves. He in addition complained of chest pain for which admission was recommended was recommended through the Ed as pt had complained of chest pain. In the Ed, D-Dimer was 1114.99. BUN was elevate at 21 with Cr of 1.7. Troponin T levels x 2 were normal. BNP was 502.5. Recent ECHO 12/06/18 showed EF of 55-60% 01/09/19 CTA showed nonocclusive PE 01/09/19n Arterial doppler showed popliteal artery occlusion - Acute pulmonary embolism per CTA chest of 01/09/19 D/melva heparin and now on Eliquis - Chest pain - resolved Cardiac enzymes 2 were negative EKG shows sinus bradycardia at 55/min now in the 80s Cardiology consulted and imput noted Continue oxygen, aspirin, morphine, nitroglycerin ECHO of (12/06/2018 showed EF 55-60%, impaired relaxation, trace MR, mild TR, RVSP 35mmHg. - Anemia of chronic disease - PVD left left From arterial doppler - 01/09/19 intervention/Vascular surgeon consulted. No intervention recommended as pt had no complain of pain or ulceration - Status post suprapubic catheter Suprapubic catheter care - Status post right AKA - Dementia: Stable Monitor - History of DVT Anticoagulation heparin and GI with Pepcid Called pt's again [phone]. Desire pt to go to SNF with rehabilitation capacity. CM looking for SNF - Time spent during this admission: > 35 min mins - Disposition: Awaiting insurance authorization for SNF placement Code status Full code Subjective Date of service: 01/16/19 Principal diagnosis: chest pain, PE, acute renal failure, dementia, PVD Interval history: Patient seen and examined. No new complaint. Denies any shortness of breath. n o pain in his left leg. Pleasantly confused. Remains afebrile Objective - Exam Narrative Exam: Constitutional: Well-nourished well-developed. Pleasantly confused Head: Normocephalic atraumatic Eyes: Pupils are equal round and reactive to light Nose: No enlarged turbinates, no septal deviation. Mouth: Moist mucous membranes. Neck: Supple no thyromegaly. No bruit. No JVD Heart: Regular rate and rhythm, S1-S2 normal. No rubs murmurs or gallop Lungs: Clear to auscultation bilaterally. no rales or rhonchi Abdomen: Soft, nontender. Bowel sound are present. Extremities: Right AKA. No edema or cyanosis of the left leg. Neuro: Alert oriented Oriented x1. No focal sensory or motor deficit. Skin: No rashes or hyperpigmented spots Musculoskeletal system: No joint pain or swelling Hematological: No petechia or subcutanous hemorrhages. Immunological: No multiple septic spots on the skin Lymphatic: No generalized lymphadenopathy Psychiatry: Euthymic. Calm. Pleasantly confused - Constitutional Vitals: Vital Signs - 12hr 01/15/19 01/15/19 01/16/19 22:27 23:05 03:32 Temperature 98.2 F 98.1 F Pulse Rate 56 L 54 L 63 Respiratory 12 18 Rate Blood Pressure 139/73 127/71 O2 Sat by Pulse 96 97 Oximetry 01/16/19 01/16/19 01/16/19 05:42 08:05 08:39 Temperature 98.0 F Pulse Rate 67 73 68 Respiratory 16 Rate Blood Pressure 134/80 O2 Sat by Pulse 97 Oximetry - Labs CBC & Chem 7: 01/15/19 04:35 01/15/19 04:35 Labs: Abnormal lab results 01/15/19 01/15/19 Range/Units 12:17 20:57 POC Glucose 109 H 119 H (70-105)
--- NOTE | 2019-01-16 08:59 | Discharge Summary ---
Providers - Providers Date of Admission: 01/10/19 10:52 Date of discharge: 01/16/19 Attending physician: VAL WILLAMS 01/09/19 Consult to Cardiac Rehabilitation [CONS] Routine Reason For Exam: Phase I 01/09/19 08:59 Consult to Cardiology [CONS] Routine Consulting Provider: KESHIA YORK Reason For Exam: chest pain and h/o svt now with bradycardia 01/09/19 20:54 Consult to Physician [CONS] Routine Comment: Consulting Provider: ALEXUS BARON Physician Instructions: Reason For Exam: PVD left leg 01/10/19 14:14 Occupational Therapy Evaluate and Treat [CONS] Routine Comment: Reason For Exam: weakness Physical Therapy Evaluation and Treat [CONS] Routine Comment: Reason For Exam: weakness Primary care [facility]: [facility] Hospital[facility] Reason for admission: chest pain, acute renal failure, Condition: Stable Pertinent studies: Chest x-ray today showed enlarged cardiac silhouette. CT angiogram that showed nonobstructive acute pulmonary embolism in the left lower lobe of the lung Arterial Doppler that showed obstruction of popliteal artery in the left leg Procedures: none Hospital course: Patient is a 73-year-old gentleman who is wheelchair bound with a history of CHF, SVT, dementia, previous CVA, DVT off anticoagulation because of history of bleeding, right AKA, hypertension, chronic renal failure, suprapubic catheter for outflow obstruction from urinary bladder stone obstruction and depression, who was said to be having rapid heart rate by the home health nurse-aid who called my office 01/08/19 informing me of the patient's status. The caregiver was advised to bring the patient into the office. Patient denied any shortness of breath or diaphoresis. EKG in the office showed sinus tachycardia with inverted T-waves. He in addition complained of chest pain for which admission was recommended was recommended through the Ed as pt had complained of chest pain. In the Ed, D-Dimer was 1114.99. BUN was elevate at 21 with Cr of 1.7. Troponin T levels x 2 were normal. BNP was 502.5. On admission pt was commenced on cardiac meds that inlcuded ASA, nitroglycerin,morphine and heparin gtt as he had SVT and prior DVT. Serial cardiac enzymes were unremarkable. ECHO 12/06/18 showed EF of 55-60%. Cardiology was consulted because of the SVT. Patient was placed on beta blockers and Cardizem. Stress test was thought to be unnecessary by draw bench operator helper as chest pain had resolved. 01/09/19 CTA showed nonocclusive PE in the left lower lobe. Patient was continue on heparin. Heparin was discontinued and was commenced on Eliquis. 01/09/19 Arterial doppler showed popliteal artery occlusion. Consulted vascular surgeon. After review,they recommended conservative management with anticoagulation for the occlusion of the left popliteal artery as patient has no pain in the left leg and no ulceration. [facility] for [facility] as the patient's stated that he will be unable to take care of him at this point because of the increased nursing care. Patient continues to be pleasantly confused back to baseline. No more chest pain. Condition on discharge was satisfactory. He is a follow-up with primary care physician in 5 days and draw bench operator helper in 2 weeks. Disposition: DC/[place]- HOME [facility] [place] Time spent for discharge: 40 minutes - Discharge Diagnoses (1) Acute pulmonary embolism Status: Acute (2) Chest pain Status: Acute (3) Dyspnea Status: Acute (4) Bladder outlet obstruction Status: Chronic (5) Chronic renal insufficiency Status: Chronic (6) Dementia Status: Chronic (7) Peripheral arterial disease Status: Acute (8) Peripheral arterial occlusive disease Status: Acute Core Measure Documentation - Palliative Care Palliative Care/ Comfort Measures: Not Applicable - Core Measures Any of the following diagnoses?: none Exam - Physical Exam Narrative exam: Constitutional: Well-nourished well-developed. Pleasantly confused Head: Normocephalic atraumatic Eyes: Pupils are equal round and reactive to light Nose: No enlarged turbinates, no septal deviation. Mouth: Moist mucous membranes. Neck: Supple no thyromegaly. No bruit. No JVD Heart: Regular rate and rhythm, S1-S2 normal. No rubs murmurs or gallop Lungs: Clear to auscultation bilaterally. no rales or rhonchi Abdomen: Soft, nontender. Bowel sound are present. Extremities: Right AKA. No edema or cyanosis of the left leg. Neuro: Alert oriented Oriented x1. No focal sensory or motor deficit. Skin: No rashes or hyperpigmented spots Musculoskeletal system: No joint pain or swelling Hematological: No petechia or subcutanous hemorrhages. Immunological: No multiple septic spots on the skin Lymphatic: No generalized lymphadenopathy Psychiatry: Euthymic. Calm. Pleasantly confused - Constitutional Vitals: Temp Pulse Resp BP Pulse Ox 98.0 F 68 16 134/80 97 01/16/19 08:05 01/16/19 08:39 01/16/19 08:05 01/16/19 08:05 01/16/19 08:05 Plan Activity: up only with assistance, fall precautions Weight Bearing Status: Non-Weight Bearing Diet: low fat, low salt [facility]Primary Care Provider] - 7 Days Prescriptions: Aspirin EC [Aspirin Enteric Coated TAB] 81 mg PO QDAY #30 tablet Apixaban [Eliquis] 5 mg PO Q12HR #60 tablet Potassium Chloride [Klor-Con M20] 20 meq PO QDAY #10 [email or web address]
[2019-01-16] MEDS: ECOTRIN PO SCH (09:01)
[2019-01-16] MEDS: ELIQUIS PO SCH ×2 (09:01→22:09)
[2019-01-16] MEDS: LOPRESSOR PO SCH ×2 (09:03→22:09)
[2019-01-16] MEDS: ZESTRIL PO SCH (09:03)
[2019-01-16] MEDS: NORVASC PO SCH (09:04)
[2019-01-16] MEDS: ZOLOFT PO SCH (09:04)
[2019-01-17 05:57] LABS: Hematocrit 34.3 % (35.5-45.6)
[2019-01-17] MEDS: ZESTRIL PO SCH (09:18)
[2019-01-17] MEDS: ZOLOFT PO SCH (09:18)
[2019-01-17] MEDS: LOPRESSOR PO SCH (09:18)
[2019-01-17] MEDS: ELIQUIS PO SCH (09:18)
[2019-01-17] MEDS: ECOTRIN PO SCH (09:18)
[2019-01-17] MEDS: NORVASC PO SCH (09:18)
[2019-01-17] MEDS: NITRO DUR TD SCH (09:19)
[2019-01-17 09:20] VITALS: BP 131/97
--- NOTE | 2019-01-17 09:26 | Progress Note ---
Assessment and Plan Patient is a 73-year-old gentleman who is wheelchair bound with a history of CHF, SVT, previous CVA, DVT now off anticvoagulation, right AKA, hypertension, chronic renal failure, suprapubic catheter for outflow obstruction from urinary bladder stone obstruction and depression, who was said to be having rapid heart rate by the home health nurse aid who called my office 01/08/19 informing me of the patient's status. The caregiver was advised to bring the patient into the office. Patient denied any shortness of breath or diaphoresis. EKG in the office showed sinus tachycardia with inverted T-waves. He in addition complained of chest pain for which admission was recommended was recommended through the Ed as pt had complained of chest pain. In the Ed, D-Dimer was 1114.99. BUN was elevate at 21 with Cr of 1.7. Troponin T levels x 2 were normal. BNP was 502.5. Recent ECHO 12/06/18 showed EF of 55-60% 01/09/19 CTA showed nonocclusive PE 01/09/19n Arterial doppler showed popliteal artery occlusion - Acute pulmonary embolism per CTA chest of 01/09/19 Continue with Eliquis - Chest pain - resolved Cardiac enzymes 2 were negative EKG shows sinus bradycardia at 55/min now in the 80s Cardiology consulted and imput noted Continue oxygen, aspirin, morphine, nitroglycerin ECHO of (12/06/2018 showed EF 55-60%, impaired relaxation, trace MR, mild TR, RVSP 35mmHg. - Anemia of chronic disease - PVD left left From arterial doppler - 01/09/19 intervention/Vascular surgeon consulted. No intervention recommended as pt had no complain of pain or ulceration - Status post suprapubic catheter Suprapubic catheter care - Status post right AKA - Dementia: Stable Monitor - History of DVT Anticoagulation heparin and GI with Pepcid Called pt's again [phone]. Desires pt to go to SNF with rehabilitation capacity today. - Time spent during this admission: > 35 mins - Disposition: To go to SNF as insurance approval obtained. Code status Full code - Patient Problems (1) Acute pulmonary embolism Current Visit: Yes Status: Acute (2) Chest pain Current Visit: Yes Status: Acute (3) Dyspnea Current Visit: Yes Status: Acute (4) Bladder outlet obstruction Current Visit: Yes Status: Chronic (5) Chronic renal insufficiency Current Visit: Yes Status: Chronic (6) Dementia Current Visit: Yes Status: Chronic (7) Peripheral arterial disease Current Visit: Yes Status: Acute (8) Peripheral arterial occlusive disease Current Visit: Yes Status: Acute Subjective Date of service: 01/17/19 Principal diagnosis: chest pain, PE, acute renal failure, dementia, PVD Interval history: Patient seen and examined. No new complaint. Denies any shortness of breath. No pain in his left leg. Still pleasantly confused. Remains afebrile. Will be transferring to SNF today Objective - Exam Narrative Exam: Constitutional: Well-nourished well-developed. Pleasantly confused Head: Normocephalic atraumatic Eyes: Pupils are equal round and reactive to light Nose: No enlarged turbinates, no septal deviation. Mouth: Moist mucous membranes. Neck: Supple no thyromegaly. No bruit. No JVD Heart: Regular rate and rhythm, S1-S2 normal. No rubs murmurs or gallop Lungs: Clear to auscultation bilaterally. no rales or rhonchi Abdomen: Soft, nontender. Bowel sound are present. Extremities: Right AKA. No edema or cyanosis of the left leg. Neuro: Alert oriented Oriented x1. No focal sensory or motor deficit. Skin: No rashes or hyperpigmented spots Musculoskeletal system: No joint pain or swelling Hematological: No petechia or subcutanous hemorrhages. Immunological: No multiple septic spots on the skin Lymphatic: No generalized lymphadenopathy Psychiatry: Euthymic. Calm. Pleasantly confused - Constitutional Vitals: Vital Signs - 12hr 01/16/19 01/16/19 01/17/19 22:09 23:08 03:38 Temperature 98.6 F 98.3 F Pulse Rate 61 54 L 56 L Respiratory 16 15 Rate Blood Pressure 122/72 100/75 149/87 O2 Sat by Pulse 98 99 Oximetry 01/17/19 04:40 Temperature Pulse Rate 57 L Respiratory Rate Blood Pressure O2 Sat by Pulse Oximetry - Labs CBC & Chem 7: 01/17/19 04:47 01/15/19 04:35 Labs: Abnormal lab results 01/16/19 01/16/19 01/17/19 Range/Units 11:33 16:50 04:47 Hgb 11.0 L (11.8-15.2) gm/dl Hct 34.3 L (35.5-45.6) % POC Glucose 107 H 118 H (70-105)
== END 2019-01-17 12:00 | DRG 176 ==
LOC: ED 16:21 → 4A 01-09 01:01 → OBSVTOIN 01-10 10:52
PROVIDERS: ADMIT Family Medicine; ATTEND Family Medicine
DX: I26.99 Other pulmonary embolism without acute cor pulmonale (principal); I74.3 Embolism and thrombosis of arteries of the lower extremities; I47.1 Supraventricular tachycardia; I13.0 Hypertensive heart and chronic kidney disease with heart failure and stage 1 through stage 4 chronic kidney disease, or unspecified chronic kidney disease; N32.0 Bladder-neck obstruction; I77.1 Stricture of artery; I70.292 Other atherosclerosis of native arteries of extremities, left leg; N18.9 Chronic kidney disease, unspecified; I50.9 Heart failure, unspecified; F32.9 Major depressive disorder, single episode, unspecified; F03.90 Unspecified dementia, unspecified severity, without behavioral disturbance, psychotic disturbance, mood disturbance, and anxiety; F17.200 Nicotine dependence, unspecified, uncomplicated; N28.9 Disorder of kidney and ureter, unspecified; Z96.643 Presence of artificial hip joint, bilateral; D63.8 Anemia in other chronic diseases classified elsewhere; Z86.73 Personal history of transient ischemic attack (TIA), and cerebral infarction without residual deficits; Z89.611 Acquired absence of right leg above knee; Z79.82 Long term (current) use of aspirin; Z79.899 Other long term (current) drug therapy; Z82.49 Family history of ischemic heart disease and other diseases of the circulatory system
CPT/HCPCS: 36415; 71045; 71275; 78582; 80048; 80053; 82962; 83880; 84484; 85014; 85018; 85025; 85049; 85379; 85520; 85610; 85730; 87116; 93005; 93010; 93970; G0378; A9540; A9558; J0360; J1644; Q9967

== ENCOUNTER 2019-07-23 12:50 | Emergency (ER) | payer MEDICARE ==
--- NOTE | 2019-07-23 13:05 | Event Note ---
ED Screening Note Date of service: 07/23/19 Time: 13:00 ED Screening Note: This is a 74 y.o. M. that presents to the ER with abdominal pain to suprapubic catheter. Home health came to home yesterday and changed catheter and reports severe pain. This initial assessment/diagnostic orders/clinical plan/treatment(s) is/are subject to change based on patients health status, clinical progression and re- assessment by fellow clinical providers in the ED. Further treatment and workup at subsequent clinical providers discretion. Patient/guardian urged not to elope from the ED as their condition may be serious if not clinically assessed and managed. Initial orders include: Labs
[2019-07-23 14:09] LABS: Basophils % (Auto) 0.4 % (0.0-1.8); Eosinophils # (Auto) 0.1 K/mm3 (0.0-0.4); Eosinophils % (Auto) 0.7 % (0.0-4.3); Hematocrit 41.1 % (35.5-45.6); Hemoglobin 12.8 gm/dl (11.8-15.2); Lymphocytes % (Auto) 9.8 % (13.4-35.0); Mean Corpuscular HGB Conc 31 % (32-34); Mean Corpuscular Volume 87 fl (84-94); Monocytes # (Auto) 1.2 K/mm3 (0.0-0.8); Monocytes % (Auto) 11.7 % (0.0-7.3); Platelet Count 234 K/mm3 (140-440); Red Blood Count 4.73 M/mm3 (3.65-5.03); Red Cell Distribution Width 17.4 % (13.2-15.2)
[2019-07-23 14:31] LABS: Albumin 3.7 g/dL (3.9-5); Calcium 9.1 mg/dL (8.4-10.2)
[2019-07-23] MEDS ORDERED: ACETAMINOPHEN 325 MG/10.15 ML ORAL LIQD UNIT DOSE PO ONE (15:22)
--- NOTE | 2019-07-23 15:28 | Emergency Department Report ---
ED General Adult HPI - General Chief complaint: Abdominal Pain Stated complaint: CATHETER PAIN Time Seen by Provider: 07/23/19 12:59 Source: patient, family, RN notes reviewed, old records reviewed Mode of arrival: Wheelchair Limitations: Physical Limitation, Other (patient is demented. The patient is a poor historian. 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 He is brought to the hospital by his for suprapubic pain. Apparently, the pain started recently. The patient is not able to describe the nature of his pain. He points to the suprapubic region indicating that for is having his pain. As per his , no fever, vomiting, black tarry stool. Patient fully catheter was changed yesterday. The patient's endorses compliance with most of his medications, however, she believes that they may have missed 1 or 2 doses of his systemic anticoagulation. There is no reported complaint of severe headache, neck pain, chest pain, syncope. -: Gradual Location: abdomen Radiation: other Quality: other Consistency: other Improves with: other Worsens with: other Associated Symptoms: other - Related Data Home Medications Medication Instructions Recorded Confirmed Last Taken Aspirin [Aspirin BABY CHEW TAB] 81 mg PO DAILY 05/01/15 01/09/19 05/12/15 Lisinopril [Zestril] 40 mg PO DAILY 12/05/18 01/09/19 Unknown Sertraline [Zoloft] 50 mg PO DAILY 12/05/18 01/09/19 Unknown Previous Rx's Medication Instructions Recorded Last Taken Type Metoprolol [Lopressor TAB] 100 mg PO BID #120 tablet 12/14/18 Unknown Rx Apixaban [Eliquis] 5 mg PO Q12HR #60 tablet 01/16/19 Unknown Rx Aspirin EC 81 mg PO QDAY #30 tablet 01/16/19 Unknown Rx Potassium Chloride [Klor-Con M20] 20 meq PO QDAY #10 tab.er.prt 01/16/19 Unknown Rx amLODIPine [Norvasc] 10 mg PO QDAY tablet 01/16/19 Unknown Rx Cefpodoxime Proxetil 100 mg PO Q12HR #10 tablet 07/23/19 Unknown Rx Allergies Allergy/AdvReac Type Severity Reaction Status Date / Time No Known Allergies Allergy Unverified 05/13/15 15:03 ED Review of Systems ROS: Stated complaint: CATHETER PAIN Other details as noted in HPI Constitutional: see HPI ENT: as per HPI Respiratory: see HPI Cardiovascular: as per HPI Endocrine: see HPI Gastrointestinal: as per HPI Genitourinary: as per HPI Musculoskeletal: as per HPI Skin: as per HPI Neurological: as per HPI Psychiatric: as per HPI Hematological/Lymphatic: as per HPI ED Past Medical Hx - Past Medical History Previous Medical History?: Yes Hx Hypertension: Yes Hx CVA: Yes ("MINI STROKE") Hx Congestive Heart Failure: Yes Hx Deep Vein Thrombosis: Yes Hx Arthritis: Yes Hx Psychiatric Treatment: Yes (DEPRESSION) Hx Dementia: Yes Additional medical history: "KIDNEY PROBLEMS" - Surgical History Past Surgical History?: Yes Additional Surgical History: LEFT HIP REPLACEMENT, Right BKA - Social History Smoking Status: Former Smoker Substance Use Type: None - Medications Home Medications: Home Medications Medication Instructions Recorded Confirmed Last Taken Type Aspirin [Aspirin BABY CHEW TAB] 81 mg PO DAILY 05/01/15 01/09/19 05/12/15 History Lisinopril [Zestril] 40 mg PO DAILY 12/05/18 01/09/19 Unknown History Sertraline [Zoloft] 50 mg PO DAILY 12/05/18 01/09/19 Unknown History Metoprolol [Lopressor TAB] 100 mg PO BID #120 tablet 12/14/18 01/09/19 Unknown Rx Apixaban [Eliquis] 5 mg PO Q12HR #60 tablet 01/16/19 Unknown Rx Aspirin EC 81 mg PO QDAY #30 tablet 01/16/19 Unknown Rx Potassium Chloride [Klor-Con M20] 20 meq PO QDAY #10 tab.er.prt 01/16/19 Unknown Rx amLODIPine [Norvasc] 10 mg PO QDAY tablet 01/16/19 Unknown Rx Cefpodoxime Proxetil 100 mg PO Q12HR #10 tablet 07/23/19 Unknown Rx ED Physical Exam - General Limitations: Physical Limitation, Other (de,emtoa) General appearance: alert, anxious - Head Head exam: Present: atraumatic, normocephalic - Eye Eye exam: Present: normal appearance, EOMI. Absent: nystagmus - ENT ENT exam: Present: normal exam, normal orophraynx, mucous membranes moist, normal external ear exam - Neck Neck exam: Present: normal inspection, full ROM - Respiratory Respiratory exam: Present: normal lung sounds bilaterally. Absent: respiratory distress - Cardiovascular Cardiovascular Exam: Present: normal rhythm, bradycardia, normal heart sounds. Absent: systolic murmur, diastolic murmur, rubs, gallop - GI/Abdominal GI/Abdominal exam: Present: soft, tenderness, other (there is suprapubic tenderness noted. There is an indwelling Chambers catheter suprapubic noted. There is minimal purulent discharge noted around the ostomy around the suprapubic catheter. There is cloudy yellow urine noted.). Absent: distended, guarding, rebound, rigid, pulsatile mass - Rectal Rectal exam: Present: deferred - exam: Present: normal inspection, other (chaperoned by cristina Moyer) External exam: Present: normal external exam - Extremities Exam Extremities exam: Present: normal inspection (status post right lower extremity above-knee amputation.), other (2+ radial pulses bilaterally. 2+ femoral pulses bilaterally. There is no long bony tenderness. Muscular compartments soft. The pelvis is stable.). Absent: tenderness - Back Exam Back exam: Present: normal inspection. Absent: tenderness, CVA tenderness (R), CVA tenderness (L) - Neurological Exam Neurological exam: Present: alert, other (there is no facial droop. The tongue is midline. Extraocular movements are intact bilaterally. Patient moving 4 extremities spontaneously and without difficulty. Patient's indicates the patient is at his baseline.) - Psychiatric Psychiatric exam: Present: anxious - Skin Skin exam: Present: warm, dry, intact, normal color. Absent: rash ED Course Vital Signs 07/23/19 07/23/19 07/23/19 12:54 15:34 15:37 Temperature 99.1 F 99.9 F H Pulse Rate 49 L 71 Respiratory 18 16 Rate Blood Pressure 129/78 Blood Pressure 144/83 [Left] O2 Sat by Pulse 96 98 98 Oximetry 07/23/19 07/23/19 07/23/19 15:42 15:45 16:00 Temperature 99.9 F H Pulse Rate Respiratory Rate Blood Pressure 135/85 144/98 Blood Pressure [Left] O2 Sat by Pulse 93 93 Oximetry 07/23/19 07/23/19 07/23/19 16:15 17:08 17:09 Temperature Pulse Rate Respiratory 19 Rate Blood Pressure 159/91 207/175 Blood Pressure [Left] O2 Sat by Pulse 92 97 99 Oximetry - Reevaluation(s) Reevaluation #1: 07/23/19 15:28 Differential diagnosis, including but not limited to: Urinary tract infection, pain secondary to suprapubic Chambers catheter, retroperitoneal bleed Assessment and plan: 74-year-old gentleman with low-grade temperature, suprapubic pain, minimal purulent discharge noted, likely experiencing localized pain secondary to recent superpubic Chambers catheter insertion. However, given advanced age, dementia, coexisting medical comorbidities, concomitant use of systemic anticoagulation, we will obtain a rectal temperature, urinalysis, and noncontrast CT scan of the abdomen pelvis. We will reassess after his data points have resulted. Reevaluation #2: 07/23/19 15:29 Laboratory studies reviewed and appreciated, renal insufficiency appears to be chronic. Reevaluation #3: 07/23/19 17:57 The patient is reassessed multiple times. CT scan abdomen pelvis negative for emergent findings. Urinalysis is reviewed and appreciated. Patient will be discharged with oral antibiotics and instructed to take as needed pain medicines. He can take sand-yli-ssyniad Tylenol as needed for pain. The patient is suitable to follow up with his outpatient primary care doctor, or his urology specialist. Patient required diagnostic testing, including laboratory studies and CT scan of the abdomen and pelvis to exclude potentially emergent conditions, as detailed in the differential diagnosis. However, at this point time, patient is medically suitable for discharge with outpatient follow-up. 07/23/19 18:05 ED Medical Decision Making - Lab Data Result diagrams: 07/23/19 13:51 07/23/19 13:51 Vital Signs 07/23/19 12:54 Temperature 99.1 F Pulse Rate 49 L Respiratory 18 Rate Blood Pressure 129/78 O2 Sat by Pulse 96 Oximetry Lab Results 10/22/19 10/22/19 Range/Units 13:51 13:51 WBC 10.5 (4.5-11.0) K/mm3 RBC 4.73 (3.65-5.03) M/mm3 Hgb 12.8 (11.8-15.2) gm/dl Hct 41.1 (35.5-45.6) % MCV 87 (84-94) fl MCH 27 L (28-32) pg MCHC 31 L (32-34) % RDW 17.4 H (13.2-15.2) % Plt Count 234 (140-440) K/mm3 Lymph % (Auto) 9.8 L (13.4-35.0) % Dale % (Auto) 11.7 H (0.0-7.3) % Eos % (Auto) 0.7 (0.0-4.3) % Baso % (Auto) 0.4 (0.0-1.8) % Lymph # 1.0 L (1.2-5.4) K/mm3 Dale # 1.2 H (0.0-0.8) K/mm3 Eos # 0.1 (0.0-0.4) K/mm3 Baso # 0.0 (0.0-0.1) K/mm3 Seg Neutrophils % 77.4 H (40.0-70.0) % Seg Neutrophils # 8.1 H (1.8-7.7) K/mm3 Sodium 143 (137-145) mmol/L Potassium 4.1 (3.6-5.0) mmol/L Chloride 109.3 H (98-107) mmol/L Carbon Dioxide 17 L (22-30) mmol/L Anion Gap 21 mmol/L BUN 25 H (9-20) mg/dL Creatinine 1.9 H (0.8-1.5) mg/dL Estimated GFR 42 ml/min BUN/Creatinine Ratio 13 % Glucose 110 H (75-100) mg/dL Calcium 9.1 (8.4-10.2) mg/dL Total Bilirubin 0.90 (0.1-1.2) mg/dL AST 12 (5-40) units/L ALT 9 (7-56) units/L Alkaline Phosphatase 79 (35-129) units/L Total Protein 7.5 (6.3-8.2) g/dL Albumin 3.7 L (3.9-5) g/dL Albumin/Globulin Ratio 1.0 % - Radiology Data Radiology results: pending, report reviewed, image reviewed Print Report Referring Physician: MICAELA CROCKER Patient Name: KANU CALL Date of : 1945 Sex: Male Report Date: 2019-07-23 Report Status: Finalized Findings [facility] [address] [place] [address] Cat Scan Report Signed Patient: KANU CALL MR#: [id number] : 1945 Acct:[id number] Age/Sex: 74 / M ADM Date: 07/23/19 Loc: ED Attending Dr: Ordering Physician: MICAELA CROCKER MD Date of Service: 07/23/19 Procedure(s): CT abdomen pelvis wo con Accession Number(s): [id number] cc: MICAELA CROCKER MD CT ABDOMEN AND PELVIS WITHOUT CONTRAST INDICATION: Mid to lower abdominal pain. Low-grade fever. On helical this. COMPARISON: CT abdomen pelvis without contrast from 12/05/2018. TECHNIQUE: Axial, coronal and sagittal CT imaging of the abdomen and pelvis was performed without contrast. Lack of intravenous contrast limits evaluation of the vascular and solid organs. All CT scans at this location are performed using CT dose reduction for ALARA by means of automated exposure control. FINDINGS: LOWER CHEST: The lung bases are clear. There is mild cardiomegaly without a significant pericardial effusion. LIVER: No significant abnormality. BILIARY: No significant abnormality. PANCREAS: No significant abnormality. SPLEEN: No significant abnormality. ADRENALS: No significant abnormality. KIDNEYS AND URETERS: Nonobstructive renal stones are seen bilaterally measuring up to 5 mm along the left lower renal pole and 1 cm along the right lower renal pole. There is multifocal bilateral renal cortical scarring. No suspicious renal lesions are identified. There is a distal right ureteral stones seen at the level of the acetabulum on image 90 of series 4 measuring 4 mm with secondary mild to moderate hydroureteronephrosis. The left ureter is normal in caliber. No left ureteral stones are seen. GI TRACT: No significant abnormality is noted along the small bowel or colon. There is colonic diverticulosis without evidence of diverticulitis. Unremarkable appendix. PERITONEUM: No free fluid. No free air. No fluid collection. LYMPH NODES: No significant adenopathy. VASCULATURE: The aorta is normal in caliber with moderate generalized atherosclerosis. URINARY BLADDER: The bladder is drained by a suprapubic catheter. Stones are again seen within the bladder. REPRODUCTIVE ORGANS: No significant abnormality. ADDITIONAL FINDINGS: There is a stable umbilical hernia containing fat without associated inflammation. SKELETAL SYSTEM: No acute abnormality. Degenerative changes are again seen throughout the spine and along the right hip. A left hip arthroplasty appears unremarkable. IMPRESSION: 1. 4 mm distal right ureteral stone with associated [id number] hydroureteronephrosis. 2. Nonobstructive bilateral nephrolithiasis as above. 3. Stable bladder stones. 4. Additional findings as above. Signer Name: Arthur Oh MD Signed: 07/23/2019 5:00 PM Workstation Name: [id number] Transcribed By: RISHABH Dictated By: Arthur Oh MD Electronically Authenticated By: Arthur Oh MD Signed Date/Time: 07/23/19 1700 Critical care attestation.: If time is entered above; I have spent that time in minutes in the direct care of this critically ill patient, excluding procedure time. ED Disposition Clinical Impression: Suprapubic catheter, Dementia, Renal insufficiency, Lower abdominal pain Disposition: DC-01 TO HOME OR SELFCARE Is pt being admited?: No Does the pt Need Aspirin: No Condition: Stable Additional Instructions: Continue outpatient medications. Take [id number] Tylenol, 650 mg, by mouth, with food, every 4-6 hours. Take the antibiotics as directed. Cultures were sent today, and results will be available in the next 3-5 days. Please have your primary care doctor or urology specialists contact the medical records department to obtain culture results. Recommend keeping the suprapubic Chambers catheter site clean and dry, makes certain to wash with gentle soap and water once every 24-48 hours. Follow up with your primary care doctor, or urology specialist within the next 2 weeks. Return to emergency room right away with projectile vomiting, change in mental status, confusion, inability to tolerate liquid feeds, new, worsened or different symptoms not present on the initial emergency room evaluation. Referrals: VAL WILLAMS MD [Staff Physician] - 3-5 Days KADE BETTENCOURT MD [Staff Physician] - 3-5 Days
[2019-07-23] MEDS ORDERED: SODIUM CHLORIDE 0.9% 500 ML 500 ML IV ONE (15:29)
[2019-07-23 16:06] LABS: Bacteria,Urine 3+ /HPF (Negative); Bilirubin,Urine NEG (Negative); Blood,Urine LG (Negative); Color,Urine Amber (Yellow); Mucus,Urine 3+ /HPF; Urobilinogen,Urine < 2.0 mg/dL (<2.0)
[2019-07-23 16:07] LABS: RBC,Urine > 182.0 /HPF (0.0-6.0); WBC,Urine > 182.0 /HPF (0.0-6.0)
[2019-07-23 16:16] LABS: INR 1.34 (0.87-1.13); Partial Thromboplastin Time 34.3 Sec. (24.2-36.6)
--- NOTE | 2019-07-23 17:04 | Cat Scan Report ---
CT ABDOMEN AND PELVIS WITHOUT CONTRAST INDICATION: Mid to lower abdominal pain. Low-grade fever. On helical this. COMPARISON: CT abdomen pelvis without contrast from 12/05/2018. TECHNIQUE: Axial, coronal and sagittal CT imaging of the abdomen and pelvis was performed without co ntrast. Lack of intravenous contrast limits evaluation of the vascular and solid organs. All CT sca ns at this location are performed using CT dose reduction for ALARA by means of automated exposure co ntrol. FINDINGS: LOWER CHEST: The lung bases are clear. There is mild cardiomegaly without a significant pericardial e ffusion. LIVER: No significant abnormality. BILIARY: No significant abnormality. PANCREAS: No significant abnormality. SPLEEN: No significant abnormality. ADRENALS: No significant abnormality. KIDNEYS AND URETERS: Nonobstructive renal stones are seen bilaterally measuring up to 5 mm along the left lower renal pole and 1 cm along the right lower renal pole. There is multifocal bilateral renal cortical scarring. No suspicious renal lesions are identified. There is a distal right ureteral stone s seen at the level of the acetabulum on image 90 of series 4 measuring 4 mm with secondary mild to m oderate hydroureteronephrosis. The left ureter is normal in caliber. No left ureteral stones are seen . GI TRACT: No significant abnormality is noted along the small bowel or colon. There is colonic divert iculosis without evidence of diverticulitis. Unremarkable appendix. PERITONEUM: No free fluid. No free air. No fluid collection. LYMPH NODES: No significant adenopathy. VASCULATURE: The aorta is normal in caliber with moderate generalized atherosclerosis. URINARY BLADDER: The bladder is drained by a suprapubic catheter. Stones are again seen within the bl adder. REPRODUCTIVE ORGANS: No significant abnormality. ADDITIONAL FINDINGS: There is a stable umbilical hernia containing fat without associated inflammatio n. SKELETAL SYSTEM: No acute abnormality. Degenerative changes are again seen throughout the spine and a long the right hip. A left hip arthroplasty appears unremarkable. IMPRESSION: 1. 4 mm distal right ureteral stone with associated [id number] hydroureteronephrosis. 2. Nonobstructive bilateral nephrolithiasis as above. 3. Stable bladder stones. 4. Additional findings as above. Signer Name: Arthur Oh MD Signed: 07/23/2019 5:00 PM Workstation Name: [id number]
[2019-07-23] MEDS ORDERED: MORPHINE 2 MG/1 ML INJ ONE (17:20)
[2019-07-23] MEDS ORDERED: hydrALAZINE 20 MG/1 ML INJ ONE (17:20)
[2019-07-23] MEDS ORDERED: hydrALAZINE 20 MG/1 ML INJ IV ONE (17:23)
[2019-07-23] MEDS ORDERED: MORPHINE 2 MG/1 ML INJ IV ONE (17:23)
[2019-07-23 19:07] VITALS: BP 162/112
== END 2019-07-23 18:20 | disposition home or self-care (01) ==
LOC: ED 12:50
DX: T83.84XA Pain due to genitourinary prosthetic devices, implants and grafts, initial encounter (principal); F03.90 Unspecified dementia, unspecified severity, without behavioral disturbance, psychotic disturbance, mood disturbance, and anxiety; N28.9 Disorder of kidney and ureter, unspecified; Y84.9 Medical procedure, unspecified as the cause of abnormal reaction of the patient, or of later complication, without mention of misadventure at the time of the procedure; Y92.89 Other specified places as the place of occurrence of the external cause
CPT/HCPCS: 36415; 74176; 80053; 81001; 82550; 83735; 85025; 85610; 85730; 87086; 96374; 96375; 99284; J0360; J2270; J7040